=== PATIENT | male | born 1940 | race Caucasian/White ===

== ENCOUNTER 2016-10-14 01:18 | Inpatient (IN) | payer OTHER, MEDICARE ==
[2016-10-14] VITALS (8 sets, daily range): BP systolic 131–174; BP diastolic 64–83; PULSE 62–79; TEMP 36.5–36.8; O2SAT 93–96; Ht 182.9 cm; Wt 110.5 kg
[~2016-10-14] VITALS: Ht 182.9 cm; Wt 110.5 kg
[2016-10-14] MEDS ORDERED: ONDANSETRON INJ 2 MG/ML 2 ML VIAL IV STA (01:40)
[2016-10-14] MEDS ORDERED: FENTANYL CITRATE INJ 50 MCG/1 ML 2 ML VIAL IV STA (01:40)
[2016-10-14] MEDS ORDERED: SODIUM CHLORIDE 0.9% 1000ML 1,000 ML IV STA (01:40)
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
[2016-10-14] MEDS ORDERED: LANS30CA12 PO (01:56)
[2016-10-14] MEDS ORDERED: ASPI-428 PO (01:57)
[2016-10-14] MEDS ORDERED: NIAC1TAB59 PO (01:59)
[2016-10-14] MEDS ORDERED: AMT50 PO (01:59)
[2016-10-14] MEDS ORDERED: RANI150T3 PO (02:00)
[2016-10-14] MEDS ORDERED: ROSU5TAB PO (02:01)
[2016-10-14] MEDS ORDERED: DILT240C57 PO (02:02)
[2016-10-14 02:03] LABS: BASO % 0.3 %; BASO ABS # 0.02 K/uL (0-0.2); COMPLETE YES; EOS % 1.9 %; HEMATOCRIT 49.8 % (42-52); IG% 0.3 %; LYMPH ABS # 2.27 K/uL (1.2-3.4); MEAN CORPUSCULAR HEMOGLOBIN 31.4 pg (25-34); MEAN CORPUSCULAR HGB CONC 36.5 g/dl (32-36); MEAN PLATELET VOLUME 10.8 fL (7.4-10.4); MONO % 5.6 %; NEUT % 62.9 %; PLATELET COUNT 156 K/uL (130-400); RED BLOOD COUNT 5.79 M/uL (4.7-6.1); WHITE BLOOD COUNT 7.84 K/uL (4.8-10.8)
[2016-10-14] MEDS ORDERED: NTRGSL/4 UT (02:03)
[2016-10-14] MEDS ORDERED: AZIT500T26 PO (02:05)
[2016-10-14] MEDS ORDERED: HYDROmorphone INJ 1 MG/ML SYR IV STA (02:06)
[2016-10-14] MEDS ORDERED: LISI-729 PO ×2 (02:06→02:07)
[2016-10-14] MEDS ORDERED: LABETALOL HCL IV 5 MG/ML 20ML IV STA ×2 (02:06→02:20)
[2016-10-14 02:20] LABS: PARTIAL THROMBOPLASTIN RATIO 1.1; PROTHROMBIN TIME (PATIENT) 10.8 SECONDS (9.0-12.0)
[2016-10-14 02:23] LABS: BLOOD UREA NITROGEN 16 mg/dl (7-18); BUN/CREATININE RATIO 14.6 (10-20); CALCIUM 9.5 mg/dl (8.5-10.1); CARBON DIOXIDE 28 mmol/L (21-32); CHLORIDE 106 mmol/L (98-107); GLUCOSE 145 mg/dl (70-99); POTASSIUM 3.6 mmol/L (3.5-5.1); SODIUM 141 mmol/L (136-145)
[2016-10-14 02:46] LABS: ALKALINE PHOSPHATASE 118 U/L (45-117); ALT/SGPT 29 U/L (12-78); AST/SGOT 19 U/L (15-37)
[2016-10-14] MEDS ORDERED: HydrALAZINE HCL 20 MG/ML VIAL IV. STA (02:54)
[2016-10-14] MEDS ORDERED: HydrALAZINE HCL 20 MG/ML VIAL ONE (02:55)
[2016-10-14] MEDS ORDERED: ZOLPIDEM TARTRATE 5 MG TAB PO PRN (03:00)
[2016-10-14] MEDS ORDERED: ACETAMINOPHEN 325 MG TAB PO PRN (03:00)
[2016-10-14] MEDS ORDERED: KETOROLAC TROMETHAMINE 30 MG/ML VIAL IV STA (03:01)
[2016-10-14] MEDS ORDERED: KETOROLAC TROMETHAMINE 15 MG/ML VIAL IV. PRN (03:15)
[2016-10-14 03:27] LABS: LYME DISEASE AB IGG NEG (NEG); LYME DISEASE AB IGM NEG (NEG)
[2016-10-14] MEDS: ONDANSETRON INJ 2 MG/ML 2 ML VIAL IV PRN ×2 (03:28→08:07)
[2016-10-14] MEDS ORDERED: PATIENT'S HEIGHT AND/OR WEIGHT NEEDED SCH (04:00)
[2016-10-14] MEDS: LEVOFLOXACIN / D5W 500 MG in PREMIXED IN D5W 100 ML IV SCH (05:00)
--- NOTE | 2016-10-14 05:32 | History and Physical ---
History & Physical Date & Time of Service: October 14, 2016 at 05:18 Chief Complaint: Hypertensive Urgency, Intractable Headache Primary Care Physician: Fidelia Chapa D.O. History of Present Illness Source: patient, family The patient is a 75-year-old male who presents to the emergency department with a severe left frontal area headache that began about 2 hours prior to arrival. He reports that he's had a chronic low level pain there for the past several weeks, which suddenly worsened considerably this afternoon. His nose has also been running today, and he has a anabell sensation in his eyes. He also reports dizziness, nausea, vomiting, bilateral lower extremity weakness, numbness and tingling. His family thought that he was a bit confused today as well. Past Medical/Surgical History Medical Problems: (1) A-fib Status: Chronic Family History Patient reports no known family medical history. Social History Smoking Status: Former Smoker Smokeless Tobacco Use: No Alcohol Use: none Drug Use: none Marital Status: Housing status: lives with family Occupational Status: retired Multi-Drug Resistant Organisms History of MDRO: No Allergies Coded Allergies: Amoxicillin (Verified Allergy, Intermediate, HIVES, 10/14/16) Cortisone (Verified Allergy, Intermediate, SKIN IRRITATION, 10/14/16) Iodine (Verified Allergy, Intermediate, HIVES, 10/14/16) Lorazepam (Verified Allergy, Mild, MAKES HIM GOOFY, 10/14/16) Uncoded Allergies: BEE STINGS (Allergy, Intermediate, HIVES, 07/10/12) PENICILLIN (Allergy, Intermediate, HIVES, 07/10/12) Home Medications Scheduled Amitriptyline Hcl (Elavil), 100 MG PO HS Aspirin (Ecotrin Low Strength), 81 MG PO DAILY Diltiazem Hcl Coated Beads (Cardizem Cd), 120 MG PO HS Lansoprazole (Prevacid), 30 MG PO DAILY Lisinopril (Zestril), 2.5 MG PO DAILY Niacin Ext Rel (Niaspan Ext Rel), 500 MG PO HS Ranitidine Hcl (Zantac), 150 MG PO HS Rosuvastatin Calcium (Crestor), 10 MG PO HS Scheduled PRN Azithromycin (Zithromax), 500 MG PO for 1 hour prior to dental work Nitroglycerin (Nitrostat), 0.4 MG UT PRN PRN for chest pain Review of Systems Constitutional: No chills, No fatigue, No fever, No problem reported, No sweats , No weakness, No weight loss Eyes: No diplopia, No discharge, No eye pain, No problem reported, No redness, No worsening of vision ENT: No dental problems, No hearing loss, No nasal symptoms, No problem reported, No sore throat, No tinnitus, No trouble swallowing, No unusual epistaxis Respiratory: No cough, No dyspnea at rest, No dyspnea on exertion, No hemoptysis, No problem reported, No shortness of breath, No sputum, No wheezing Cardiovascular: No PND, No chest pain, No claudication, No edema, No orthopnea , No palpitations, No problem reported Abdomen: + nausea, + vomiting, No GI bleeding, No constipation, No diarrhea, No pain Musculoskeletal: No calf pain, No joint pain, No muscle pain, No problem reported, No swelling Genitourinary - Male: No dysuria, No hematuria, No impotence, No lesions, No penile discharge, No problem reported, No urinary frequency, No urinary hesitancy, No urinary incontinence, No urinary retention, No urinary urgency Neurologic: + balance problems, + numbness/tingling, + vertigo, + weakness (in bilateral lower extremities which has been present for a while but mildly worse today.), No memory loss, No paralysis Psychiatric: No anhedonism, No anxiety, No depression symptoms, No insomnia, No problem reported, No substance abuse Endocrine: No excessive thirst, No excessive urination, No fatigue, No problem reported Hematologic / Lymphatic: No abnormal bleeding/bruising, No clotting problems, No night sweats, No problem reported, No swollen lymph nodes Integumentary: No bleeding, No color change, No itch, No new/changing skin lesions, No problem reported, No rash Allergic / Immunologic: No environmental allergies, No food allergies, No frequent infections, No hives, No pet sensitivities, No poor healing, No problem reported, No prolonged convalescence, No seasonal allergies Physical Exam Vital Signs Date Time Temp Pulse Resp B/P Pulse Ox O2 Delivery O2 Flow Rate FiO2 10/14/16 04:42 74 136/72 10/14/16 04:28 36.5 79 18 174/83 Room Air 2.0 10/14/16 03:40 186/88 10/14/16 03:35 78 17 94 Nasal Cannula 2.0 10/14/16 03:30 173/81 10/14/16 03:20 169/86 10/14/16 03:18 76 20 96 10/14/16 03:10 179/78 10/14/16 03:00 71 18 182/93 96 Nasal Cannula 2.0 10/14/16 03:00 182/93 10/14/16 02:55 194/105 10/14/16 02:50 198/86 10/14/16 02:48 67 21 96 10/14/16 02:45 190/86 10/14/16 02:40 153/124 10/14/16 02:35 169/103 10/14/16 02:30 171/87 10/14/16 02:26 61 20 165/88 91 Room Air 10/14/16 02:25 165/88 10/14/16 02:20 172/91 10/14/16 02:18 67 14 92 10/14/16 02:17 187/87 10/14/16 01:49 185/104 10/14/16 01:49 72 20 185/104 99 Room Air 10/14/16 01:35 36.4 84 20 197/94 98 Room Air 10/14/16 01:35 98 Room Air General Appearance: WD/WN, + moderate distress (secondary to left frontal headache pain episodically.) Head: normocephalic, atraumatic Eyes: normal inspection, PERRL, EOMI ENT: normal ENT inspection, hearing grossly normal, pharynx normal, + nasal congestion, + nasal drainage Neck: no adenopathy, thyroid normal, no JVD, no carotid bruits, trachea midline , + pertinent finding (his neck is fused, and therefore does not have lateral movement in either direction, but does have forward and backward movement.) Respiratory/Chest: chest non-tender, lungs clear, normal breath sounds, no respiratory distress, no accessory muscle use Cardiovascular: regular rate, rhythm, no edema, no gallop, no JVD, no murmur, normal peripheral pulses Abdomen/GI: normal bowel sounds, non tender, soft, no organomegaly, no pulsatile mass Back: normal inspection, no CVA tenderness, no muscle spasm, normal range of motion Extremities/Musculoskelatal: normal inspection, no calf tenderness, normal capillary refill, no pedal edema, normal range of motion, non-tender 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, no motor/sensory deficits, alert, normal mood/affect, normal reflexes, oriented x 3 Skin: normal color, warm/dry, no rash Lymphatic: no adenopathy Diagnostics Laboratory Results Results Past 24 Hours Test 10/14/16 00:58 10/14/16 01:49 Range/Units White Blood Count 7.84 4.8-10.8 K/uL Red Blood Count 5.79 4.7-6.1 M/uL Hemoglobin 18.2 14.0-18.0 g/dL Hematocrit 49.8 42-52 % Mean Corpuscular Volume 86.0 80-100 fL Mean Corpuscular Hemoglobin 31.4 25-34 pg Mean Corpuscular Hemoglobin Concent 36.5 32-36 g/dl Platelet Count 156 130-400 K/uL Mean Platelet Volume 10.8 7.4-10.4 fL Neutrophils (%) (Auto) 62.9 % Lymphocytes (%) (Auto) 29.0 % Monocytes (%) (Auto) 5.6 % Eosinophils (%) (Auto) 1.9 % Basophils (%) (Auto) 0.3 % Neutrophils # (Auto) 4.94 1.4-6.5 K/uL Lymphocytes # (Auto) 2.27 1.2-3.4 K/uL Monocytes # (Auto) 0.44 0.11-0.59 K/uL Eosinophils # (Auto) 0.15 0-0.5 K/uL Basophils # (Auto) 0.02 0-0.2 K/uL RDW Standard Deviation 38.4 36.4-46.3 fL RDW Coefficient of Variation 12.3 11.5-14.5 % Immature Granulocyte % (Auto) 0.3 % Immature Granulocyte # (Auto) 0.02 0.00-0.02 K/uL Prothrombin Time 10.8 9.0-12.0 SECONDS Prothromb Time International Ratio 1.0 0.9-1.1 Activated Partial Thromboplast Time 28.2 21.0-31.0 SECONDS Partial Thromboplastin Ratio 1.1 Sodium Level 141 136-145 mmol/L Potassium Level 3.6 3.5-5.1 mmol/L Chloride Level 106 98-107 mmol/L Carbon Dioxide Level 28 21-32 mmol/L Anion Gap 7.0 3-11 mmol/L Blood Urea Nitrogen 16 7-18 mg/dl Creatinine 1.10 0.60-1.40 mg/dl Estimated GFR () 74.7 Estimated GFR (Non- 64.4 BUN/Creatinine Ratio 14.6 10-20 Random Glucose 145 70-99 mg/dl Calcium Level 9.5 8.5-10.1 mg/dl Total Bilirubin 0.8 0.2-1 mg/dl Direct Bilirubin 0.2 0-0.2 mg/dl Aspartate Amino Transf (AST/SGOT) 19 15-37 U/L Alanine Aminotransferase (ALT/SGPT) 29 12-78 U/L Alkaline Phosphatase 118 45-117 U/L Troponin I < 0.015 0-0.045 ng/ml Total Protein 8.2 6.4-8.2 gm/dl Albumin 4.6 3.4-5.0 gm/dl Lyme Disease IgG Antibody NEG NEG Lyme Disease IgM Antibody NEG NEG other (CAT scan of the head shows significant paranasal sinus disease, and chronic small vessel disease.) Impression Assessment and Plan Intractable left frontal headache/nausea, vomiting and bilateral lower extremity weakness--the patient be admitted to telemetry unit for cardiac monitoring and neurologic checks. CT scan of head was negative for acute vascular disease, but did show significant sinus disease. We'll order an MRI of the brain to further assess for any neurologic process. He'll be started on Levaquin 500 mg IV daily, Toradol 30 mg IV every 6 hours when necessary, and we' ll hold on steroids due to sensitivity to cortisone. He does have chronic low back pain, sees him to have a chronic lower extremity weakness, numbness and tingling, which is likely aggravated by his other processes. We'll also have when necessary morphine available IV, but we'll be careful going to a stronger narcotics as he did have some respiratory depression in the emergency department. Hypertensive urgency--for now we will allow permissive hypertension for systolic blood pressure around 170, until we're convinced that no acute neurologic process taking place of the brain. Labetalol and hydralazine IV will be available to use with appropriate parameters. Level of Care Telemetry Advanced Directives Existing Advance Directive: No Existing Living Will: No Existing Power of Unit Support Representative: No Resuscitation Status FULL RESUSCITATION VTE Prophylaxis VTE Risk Assessment Done? Y/N: Yes Risk Level: Moderate Given or contraindicated: SCD's
[2016-10-14] MEDS ORDERED: HydrALAZINE HCL 20 MG/ML VIAL IV. PRN (05:45)
[2016-10-14] MEDS ORDERED: METOPROLOL TARTRATE 1 MG/ML VIAL IV PRN (05:45)
--- NOTE | 2016-10-14 06:39 | DIAGNOSTIC IMAGING REPORT ---
CHEST ONE VIEW PORTABLE CLINICAL HISTORY: AMS, hypertension COMPARISON STUDY: No previous studies for comparison. FINDINGS: The heart is borderline enlarged. There is mild elevation right hemidiaphragm. Left hemidiaphragm is ill-defined. A small left pleural effusion and/or left basilar atelectasis/consolidation cannot be excluded. There is no failure.[ IMPRESSION: 1. Mild elevation right hemidiaphragm 2. Ill-definition of the left hemidiaphragm. A small left pleural effusion and/or left basilar atelectasis/consolidation cannot be excluded Electronically signed by: Kentrell Gr M.D. 10/14/2016 6:37 AM Dictated Date/Time: 10/14/2016 6:36 AM
[2016-10-14] MEDS ORDERED: NURSING VERBAL MED ORDER ONE (06:45)
--- NOTE | 2016-10-14 06:50 | DIAGNOSTIC IMAGING REPORT ---
CT OF THE HEAD WITHOUT CONTRAST CLINICAL HISTORY: Sudden onset severe headache. COMPARISON STUDY: No previous studies for comparison. CT DOSE: 614.27 mGy.cm TECHNIQUE: Helical axial images of the head were obtained without IV contrast. Automated exposure control was utilized for the study. FINDINGS: No acute intracranial hemorrhage, midline shift or mass effect is present. Ventricular system is normal for age. Basilar cisterns are patent. There are no extra-axial collections. Connell-white differentiation is maintained. There are no findings to suggest acute dural sinus thrombosis or acute territorial infarct. There is moderate mucosal thickening of the ethmoid sinuses. Mastoid air cells are clear. Cervical spine fusion is partially imaged. IMPRESSION: 1. No acute intracranial findings. 2. Moderate ethmoid sinus mucosal thickening. Electronically signed by: Emeka Chilel M.D. 10/14/2016 6:49 AM Dictated Date/Time: 10/14/2016 6:45 AM
[2016-10-14] MEDS: LISINOPRIL 2.5 MG TAB PO SCH (08:12)
[2016-10-14] MEDS: PANTOprazole SOD 40 MG TAB PO SCH (08:12)
[2016-10-14] MEDS ORDERED: ASPIRIN 81 MG ECTAB PO SCH ×2 (09:00→17:40)
[2016-10-14] MEDS ORDERED: HYDROmorphone INJ 1 MG/ML SYR IV PRN ×2 (10:45)
[2016-10-14] MEDS ORDERED: OXYCODONE HCL IR 5 MG TAB (IMMEDIATE RELEASE) PO PRN (10:45)
[2016-10-14] MEDS ORDERED: KETOROLAC TROMETHAMINE 15 MG/ML VIAL IV PRN (10:45)
[2016-10-14] MEDS ORDERED: PANTOprazole INJ 40 MG in SYRINGE 0 ML IV SCH (11:00)
[2016-10-14] MEDS ORDERED: METHYLPREDNISOLONE IV 40 MG in SYRINGE 0 ML IV ONE (11:00)
[2016-10-14] MEDS ORDERED: MAGNESIUM SULFATE 1GM / D5W 1 GM in PREMIXED IN D5W 100 ML IV ONE (11:00)
--- NOTE | 2016-10-14 12:36 | Progress Note ---
Subjective Date of Service: October 14, 2016. Subjective pt has persistent moderate left retro orbital headache, a "anabell' feeling in eye , without conjunctival irritation, temporal artery pain, of jaw claudication no amarousis, and no further rhinorhea. initial ct negative except for sinusitis Problem List Medical Problems: (1) Hypertensive emergency Status: Acute Review of Systems Constitutional: No chills, No fever, No weakness Eyes: + eye pain, No diplopia, No discharge, No redness, No worsening of vision ENT: No hearing loss, No unusual epistaxis Respiratory: No cough, No sputum Cardiac: No chest pain, No orthopnea Abdomen: No nausea, No pain Male : No dysuria, No urinary frequency Neurologic: No memory loss, No paralysis Psychiatric: No anhedonism, No depression symptoms Objective Vital Signs Date Time Temp Pulse Resp B/P Pulse Ox O2 Delivery O2 Flow Rate FiO2 10/14/16 07:38 36.5 74 16 131/73 96 Room Air 10/14/16 04:42 74 136/72 10/14/16 04:28 36.5 79 18 174/83 Room Air 2.0 10/14/16 03:40 186/88 10/14/16 03:35 78 17 94 Nasal Cannula 2.0 10/14/16 03:30 173/81 10/14/16 03:20 169/86 10/14/16 03:18 76 20 96 10/14/16 03:10 179/78 10/14/16 03:00 71 18 182/93 96 Nasal Cannula 2.0 10/14/16 03:00 182/93 10/14/16 02:55 194/105 10/14/16 02:50 198/86 10/14/16 02:48 67 21 96 10/14/16 02:45 190/86 10/14/16 02:40 153/124 10/14/16 02:35 169/103 10/14/16 02:30 171/87 10/14/16 02:26 61 20 165/88 91 Room Air 10/14/16 02:25 165/88 10/14/16 02:20 172/91 10/14/16 02:18 67 14 92 10/14/16 02:17 187/87 10/14/16 01:49 185/104 10/14/16 01:49 72 20 185/104 99 Room Air 10/14/16 01:35 36.4 84 20 197/94 98 Room Air 10/14/16 01:35 98 Room Air Physical Exam General Appearance: WD/WN, + moderate distress Eyes: PERRL, EOMI ENT: hearing grossly normal, TMs normal, pharynx normal Neck: supple, no JVD Respiratory/Chest: chest non-tender, lungs clear, normal breath sounds Cardiovascular: regular rate, rhythm, no murmur Abdomen: normal bowel sounds, non tender, soft 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 as tested, alert, oriented x 3 Laboratory Results Last 24 Hours Test 10/14/16 00:58 10/14/16 01:49 White Blood Count 7.84 K/uL Red Blood Count 5.79 M/uL Hemoglobin 18.2 g/dL Hematocrit 49.8 % Mean Corpuscular Volume 86.0 fL Mean Corpuscular Hemoglobin 31.4 pg Mean Corpuscular Hemoglobin Concent 36.5 g/dl Platelet Count 156 K/uL Mean Platelet Volume 10.8 fL Neutrophils (%) (Auto) 62.9 % Lymphocytes (%) (Auto) 29.0 % Monocytes (%) (Auto) 5.6 % Eosinophils (%) (Auto) 1.9 % Basophils (%) (Auto) 0.3 % Neutrophils # (Auto) 4.94 K/uL Lymphocytes # (Auto) 2.27 K/uL Monocytes # (Auto) 0.44 K/uL Eosinophils # (Auto) 0.15 K/uL Basophils # (Auto) 0.02 K/uL RDW Standard Deviation 38.4 fL RDW Coefficient of Variation 12.3 % Immature Granulocyte % (Auto) 0.3 % Immature Granulocyte # (Auto) 0.02 K/uL Prothrombin Time 10.8 SECONDS Prothromb Time International Ratio 1.0 Activated Partial Thromboplast Time 28.2 SECONDS Partial Thromboplastin Ratio 1.1 Sodium Level 141 mmol/L Potassium Level 3.6 mmol/L Chloride Level 106 mmol/L Carbon Dioxide Level 28 mmol/L Anion Gap 7.0 mmol/L Blood Urea Nitrogen 16 mg/dl Creatinine 1.10 mg/dl Estimated GFR () 74.7 Estimated GFR (Non- 64.4 BUN/Creatinine Ratio 14.6 Random Glucose 145 mg/dl Calcium Level 9.5 mg/dl Total Bilirubin 0.8 mg/dl Direct Bilirubin 0.2 mg/dl Aspartate Amino Transf (AST/SGOT) 19 U/L Alanine Aminotransferase (ALT/SGPT) 29 U/L Alkaline Phosphatase 118 U/L Troponin I < 0.015 ng/ml Total Protein 8.2 gm/dl Albumin 4.6 gm/dl Lyme Disease IgG Antibody NEG Lyme Disease IgM Antibody NEG Assessment and Plan Intractable left frontal headache/nausea, vomiting and bilateral lower extremity weakness-- Headache, CT scan of head was negative for acute vascular disease, sinus disease present. Pending MRI of the brain Toradol and morphine, does have some baseline LE issues suspected from back pain. will add steroids, magnesium and consider neurology eval if not improved Sinusitis, Levaquin 500 mg IV daily, Hypertensive urgency-- allow permissive hypertension for systolic blood pressure around 170 Labetalol and hydralazine IV will be available to use with appropriate parameters.
[2016-10-14] MEDS ORDERED: GADAVIST IV PRN (16:00)
--- NOTE | 2016-10-14 16:02 | DIAGNOSTIC IMAGING REPORT ---
MRI OF THE BRAIN WITHOUT AND WITH IV CONTRAST CLINICAL HISTORY: severe headache COMPARISON STUDY: Noncontrast head CT dated 10/14/2016 TECHNIQUE: MRI of the brain was performed from the vertex to the skull base utilizing various T1 and T2 weighted sequences. Following the IV administration of 10.5 mL of Gadavist contrast, additional enhanced images were obtained. FINDINGS: Sagittal T1, axial diffusion, proton density and T2 weighted axial, coronal FLAIR, and pre and post axial T1-weighted images were acquired. These were supplemented with post gadolinium coronal T1 weighted images. No intra or extra-axial mass lesions are visualized. Axial diffusion-weighted images reveal no evidence of acute or subacute infarction. There is no evidence of ventricular dilatation. Proton density T2-weighted and FLAIR images reveal minor scattered foci of increased T2 signal within the white matter, likely on a small vessel basis. There are no abnormal flow voids. There is no evidence of pathologic enhancement. There is artifact emanating from presumed postsurgical changes within the cervical spine. There is ethmoid sinus mucosal thickening. IMPRESSION: 1. No acute intracranial findings 2. No evidence of intracranial mass 3. No evidence of acute or subacute infarction 4. Minor foci of increased T2 and FLAIR signal within the white matter, likely on a small vessel basis, and not unexpected for age. Electronically signed by: Kentrell Gr M.D. 10/14/2016 4:01 PM Dictated Date/Time: 10/14/2016 3:58 PM
[2016-10-14] MEDS ORDERED: RANITIDINE HCL 150 MG TAB PO SCH (21:00)
[2016-10-14] MEDS ORDERED: ROSUVASTATIN CALCIUM 10 MG TAB PO SCH (21:00)
[2016-10-14] MEDS ORDERED: NIASPAN 500 MG TABCR PO SCH (21:00)
[2016-10-14] MEDS ORDERED: DILTIAZEM HCL 120 MG CAPCR PO SCH (21:00)
[2016-10-14] MEDS ORDERED: AMITRIPTYLINE HCL 50 MG TAB PO SCH (21:00)
[2016-10-14 22:55] LABS: URINE APPEARANCE CLEAR (CLEAR); URINE BILIRUBIN NEG (NEG); URINE COLOR YELLOW; URINE EPITHELIAL CELL AUTO 0-5 /lpf (0-5); URINE NITRITE NEG (NEG); UROBILINOGEN NEG (NEG); ZZUR CULT IF INDIC CLEAN CATCH NO
[2016-10-14 22:56] LABS: MANUAL MICROSCOPIC REQUIRED? NO; REVIEW REQ? NO
[2016-10-15 04:26] VITALS: BP 145/71; PULSE 67; TEMP 36.8; O2SAT 93
[2016-10-15] MEDS: LEVOFLOXACIN / D5W 500 MG in PREMIXED IN D5W 100 ML IV SCH (05:00)
[2016-10-15 05:46] LABS: BASO % 0.1 %; BASO ABS # 0.01 K/uL (0-0.2); COMPLETE YES; HEMATOCRIT 45.1 % (42-52); IG% 0.2 %; LYMPH % 7.8 %; LYMPH ABS # 1.07 K/uL (1.2-3.4); MEAN CELL VOLUME 88.8 fL (80-100); MEAN CORPUSCULAR HEMOGLOBIN 30.1 pg (25-34); MEAN CORPUSCULAR HGB CONC 33.9 g/dl (32-36); MEAN PLATELET VOLUME 10.4 fL (7.4-10.4); MONO % 3.9 %; PLATELET COUNT 159 K/uL (130-400); RED BLOOD COUNT 5.08 M/uL (4.7-6.1)
[2016-10-15 06:30] LABS: BUN/CREATININE RATIO 17.1 (10-20); CALCIUM 8.3 mg/dl (8.5-10.1); CREATININE 1.1 mg/dl (0.60-1.40); MAGNESIUM 2.3 mg/dl (1.8-2.4); POTASSIUM 4.5 mmol/L (3.5-5.1)
[2016-10-15] MEDS: PANTOprazole SOD 40 MG TAB PO SCH (07:59)
[2016-10-15] MEDS: LISINOPRIL 2.5 MG TAB PO SCH (07:59)
[2016-10-15 08:42] VITALS: BP 144/69; PULSE 69; TEMP 36.8; O2SAT 95
[2016-10-15] MEDS ORDERED: CLIN300C2 PO (10:11)
[2016-10-15] MEDS ORDERED: RXC5 PO (10:11)
--- NOTE | 2016-10-15 10:12 | Discharge Instructions ---
Discharge Instructions Date of Service October 15, 2016. Admission Reason for Admission: Hypertensive Urgency, Intractable Headache Discharge Discharge Diagnosis / Problem: initractable headache, sinusitis Discharge Goals Goal(s): Diagnostic testing, Therapeutic intervention Activity Recommendations Activity Limitations: resume your previous activity . Current Hospital Diet Patient's current hospital diet: AHA Diet (Heart Healthy), Diabetes Type 2 Diet Discharge Diet Recommended Diet: Regular Diet Pending Studies Studies pending at discharge: no Medical Emergencies . Who to Call and When: Medical Emergencies: If at any time you feel your situation is an emergency, please call 911 immediately. . Non-Emergent Contact Non-Emergency issues call your: Primary Care Provider Call Non-Emergent contact if: temperature is above 101, your pain is unusual for you . . "Provider Documentation" section prepared by Nelson Hart. . VTE Core Measure Inpt VTE Proph given/why not?: SCD's
[2016-10-15 13:44] VITALS: BP 144/69; PULSE 69; TEMP 36.8; O2SAT 95
--- NOTE | 2016-10-15 14:13 | Discharge Summary ---
Discharge Summary Date of Service October 15, 2016. Discharge Summary Admission Date: October 14, 2016 at 03:01 Discharge Date: October 15, 2016 Discharge Disposition: Home Principal Diagnosis: intractable headache, sinusitis Medication Reconciliation New Medications: Clindamycin Hcl (Cleocin) 300 Mg Cap 1 CAP PO TID, #24 CAP Oxycodone HCl (Oxycodone HCl) 5 Mg Tab 10 MG PO Q6 PRN for Pain, #20 TAB Continued Medications: Amitriptyline Hcl (Elavil) 50 Mg Tab 100 MG PO HS, TAB Aspirin (Ecotrin Low Strength) 81 Mg Tab 81 MG PO DAILY for 30 Days, #30 TAB 3 Refills take 15 min. prior taking niaspan Azithromycin (Zithromax) 500 Mg Tab 500 MG PO PRN for 1 hour prior to dental work, #4 TAB Diltiazem Hcl Coated Beads (Cardizem Cd) 240 Mg Cap 120 MG PO HS, CAP Lansoprazole (Prevacid) 30 Mg Capcr 30 MG PO DAILY, CAP Lisinopril (Zestril) 5 Mg Tab 2.5 MG PO DAILY, TAB Niacin Ext Rel (Niaspan Ext Rel) 500 Mg Tabcr 500 MG PO HS, TAB Nitroglycerin (Nitrostat) 0.4 Mg Tab 0.4 MG UT PRN PRN for chest pain, BTL Ranitidine Hcl (Zantac) 150 Mg Tab 150 MG PO HS, TAB Rosuvastatin Calcium (Crestor) 5 Mg Tab 10 MG PO HS, TAB Discharge Exam Review of Systems: Constitutional: No chills, No fever Respiratory: No cough, No sputum Cardiovascular: No chest pain, No orthopnea Abdomen: No nausea, No pain, No vomiting Musculoskeletal: No joint pain, No muscle pain Physical Exam: General Appearance: WD/WN, no apparent distress Eyes: PERRL, EOMI ENT: hearing grossly normal, pharynx normal Neck: supple, no adenopathy, thyroid normal, no JVD Respiratory/Chest: chest non-tender, lungs clear, normal breath sounds Cardiovascular: regular rate, rhythm, no murmur Abdomen / GI: normal bowel sounds, non tender, soft Hospital Course Intractable left frontal headache improved after treatment of sinus headache Headache, CT scan of head was negative for acute vascular disease, sinus disease present. MRI of the brain without significant changes will have home on clindamycin due to drug allergies and prolongued Qtc that maybe from levaquin Sinusitis, cleocin, oxycodone Hypertensive urgency-- resolved with treatment of his headache, will encourage follow up for bp monitoring with family doctor Total Time Spent: Greater than 30 minutes This includes examination of the patient, discharge planning, medication reconciliation, and communication with other providers. Discharge Instructions Please refer to the electronic Patient Visit Report (Discharge Instructions) for additional information.
[2016-10-15] MEDS ORDERED: ASPIRIN 81 MG ECTAB PO SCH (21:00)
== END 2016-10-15 13:47 | disposition home or self-care (01) | DRG 305 ==
LOC: ENRESERVTM → ENRESERVDT → EDBD 01:18 → C.EDA 01:21 → C.2T 03:01
PROVIDERS: ADMIT Hospitalist; ATTEND Internal Medicine
DX: I16.0 Hypertensive urgency (principal); I10 Essential (primary) hypertension; J32.9 Chronic sinusitis, unspecified; R51 Headache; R11.2 Nausea with vomiting, unspecified; R53.1 Weakness; I48.91 Unspecified atrial fibrillation; Z98.1 Arthrodesis status; Z79.82 Long term (current) use of aspirin; Z79.899 Other long term (current) drug therapy

== ENCOUNTER 2017-08-14 11:02 | Emergency (ER) | payer OTHER, MEDICARE ==
[~2017-08-14] VITALS: Ht 188 cm; Wt 111.3 kg
[~2017-08-14 11:02] MED LIST: AMT50 PO; ASPI-428 PO; AZIT500T26 PO; DILT240C57 PO; LANS30CA12 PO; LISI-729 PO; NIAC1TAB59 PO; NTRGSL/4 UT; RANI150T3 PO; ROSU5TAB PO; RXC5 PO
[2017-08-14 11:12] VITALS: TEMP 36.5; Ht 188 cm; Wt 111.3 kg
[2017-08-14] MEDS ORDERED: OXYCODONE HCL IR 5 MG TAB (IMMEDIATE RELEASE) PO STA (11:50)
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
[2017-08-14] MEDS ORDERED: ONDANSETRON 4MG OD TAB PO ONE (12:00)
--- NOTE | 2017-08-14 12:26 | DIAGNOSTIC IMAGING REPORT ---
CT SCAN OF THE BRAIN WITHOUT IV CONTRAST CLINICAL HISTORY: Fall. COMPARISON STUDY: CT of the brain dated 10/14/2016. TECHNIQUE: Unenhanced axial CT scan of the brain is performed from the vertex to the skull base. A dose lowering technique was utilized adhering to the principles of ALARA. FINDINGS: Brain parenchyma: There are age-related involutional changes noting mild subcortical and periventricular microangiopathic change. There is no hemorrhage, mass effect, or evidence of acute territorial ischemia by CT criteria. Connell-white matter is preserved. No extra-axial fluid collection is seen. Ventricles, sulci, cisterns: Prominent secondary to involutional change. Intracranial vasculature: There is atherosclerotic calcification of the cavernous carotid and vertebral arteries. Calvarium: The skeletal structures are osteopenic. No depressed calvarial fracture is seen. Sinuses and mastoids: Moderate mucosal thickening is seen within the ethmoid sinuses. Trace fluid is noted in the left maxillary antrum. The mastoid air cells are well pneumatized. Orbits: The bony orbits are grossly intact. There are bilateral ocular lens implants. IMPRESSION: There is no hemorrhage, mass effect, or evidence of acute territorial ischemia by CT criteria. Electronically signed by: Billy Israel M.D. 08/14/2017 12:24 PM Dictated Date/Time: 08/14/2017 12:22 PM
--- NOTE | 2017-08-14 12:32 | DIAGNOSTIC IMAGING REPORT ---
CT SCAN OF THE CERVICAL SPINE CLINICAL HISTORY: Fall. COMPARISON STUDY: No priors. TECHNIQUE: CT scan of the cervical spine is performed from the skull base to the upper thoracic spine. Images are reviewed in the axial, sagittal, and coronal planes. IV contrast was not administered for this examination. A dose lowering technique was utilized adhering to the principles of ALARA. CT DOSE: 1335.91 mGy.cm FINDINGS: Skeletal structures: The skeletal structures are osteopenic. There is no evidence of fracture or subluxation involving the cervical spine. Vertebral body height is preserved. There is mild anterolisthesis at C3-C4 and C7-T1. Alignment is otherwise maintained. Anterior osteophytes are seen throughout. Postoperative change is identified at C1 and C2. Interpedicular screws are present in C2 and transfix the lateral masses of C1. Cerclage wires few the posterior elements of C1 and C2. The odontoid process and lateral masses are intact. The atlantoaxial articulation is preserved noting advanced productive degenerative change. The spinous processes appear intact. There is moderate to advanced multilevel cervical spondylosis. Uncovertebral and facet arthropathy contributes to neural foraminal stenosis throughout the cervical spine. There is a mild and age indeterminant superior endplate compression deformity of T2. There is also a healed right first rib fracture. Intervertebral discs: There is moderate to severe disc space narrowing seen at C4-C5, C5-C6, C6-C7, and C7-T1. Central canal: Posterior disc osteophyte complexes from C4-C5 through C7-T1 likely contribute to multilevel acquired compromise of the central canal. Soft tissues: The prevertebral and paraspinous soft tissues are within normal limits. Atherosclerotic calcification is noted in the carotid bulbs. Calvarium: The visualized calvarium at the skull base appears intact. Brain parenchyma: Partially visualized brain parenchyma the skull base is within normal limits. Mastoids: The mastoid air cells are well pneumatized. Lung apices: Clear as visualized. IMPRESSION: 1. There is no evidence of fracture or subluxation involving the cervical spine. 2. Osteopenia with advanced spondylotic as well as postoperative changes as above. 3. There is a minimal and age indeterminant superior endplate compression deformity of T2. A healed right first rib fracture is also identified. Electronically signed by: Billy Israel M.D. 08/14/2017 12:31 PM Dictated Date/Time: 08/14/2017 12:25 PM
--- NOTE | 2017-08-14 12:46 | DIAGNOSTIC IMAGING REPORT ---
TWO VIEW CHEST CLINICAL HISTORY: Fall. FINDINGS: AP and lateral chest radiographs are compared to study dated 10/14/2016. The heart is enlarged and there is atherosclerotic calcification of the thoracic aorta. The pulmonary vasculature is noncongested. Chronic interstitial thickening is similar to previous, as is mild elevation of the right hemidiaphragm. There is minimal bibasilar atelectasis. No airspace consolidation or pleural effusion is identified. There is no pneumothorax. The skeletal structures are osteopenic. The bony thorax appears intact. Degenerative change is seen throughout the thoracic spine. IMPRESSION: Cardiomegaly with no acute cardiopulmonary abnormality. Electronically signed by: Billy Israel M.D. 08/14/2017 12:45 PM Dictated Date/Time: 08/14/2017 12:44 PM
--- NOTE | 2017-08-14 12:47 | DIAGNOSTIC IMAGING REPORT ---
SINGLE VIEW PELVIS; 2 VIEWS RIGHT HIP CLINICAL HISTORY: Fall. FINDINGS: An AP view of the pelvis with AP and frog-leg views of the right hip are obtained. No prior studies are available for comparison at the time of dictation. The skeletal structures are osteopenic. There is no radiographic evidence of fracture involving the hips or bony pelvis. Mild arthritic change and joint space narrowing is seen in both hips. Mild sclerotic change is noted in the sacroiliac joints. The overlying soft tissues are within normal limits. IMPRESSION: Osteopenia with no radiographic evidence of fracture involving the hips or bony pelvis. Electronically signed by: Billy Israel M.D. 08/14/2017 12:46 PM Dictated Date/Time: 08/14/2017 12:45 PM
[2017-08-14] MEDS ORDERED: ACETAMINOPHEN 500 MG TAB PO STA (13:00)
[2017-08-14] MEDS ORDERED: OXYC1TAB3 PO (13:03)
[2017-08-14] MEDS ORDERED: KETOROLAC TROMETHAMINE 60 MG/2 ML VIAL IM STA (13:04)
[2017-08-14 13:10] VITALS: BP 141/113; PULSE 67; O2SAT 95
== END 2017-08-14 13:36 | disposition home or self-care (01) ==
LOC: EDBD 11:02 → C.EDC 11:03
DX: S70.01XA Contusion of right hip, initial encounter (principal); R51 Headache; W00.0XXA Fall on same level due to ice and snow, initial encounter; Y92.89 Other specified places as the place of occurrence of the external cause; I48.91 Unspecified atrial fibrillation; Z79.82 Long term (current) use of aspirin; Z79.899 Other long term (current) drug therapy; Z91.030 Bee allergy status; Z88.1 Allergy status to other antibiotic agents; Z88.0 Allergy status to penicillin; Z88.8 Allergy status to other drugs, medicaments and biological substances; Z91.048 Other nonmedicinal substance allergy status

== ENCOUNTER 2017-09-04 18:44 | Inpatient (IN) | payer OTHER, MEDICARE ==
[~2017-09-04] VITALS: Ht 182.9 cm; Wt 92.3 kg
[~2017-09-04 18:44] MED LIST changes: -NIAC1TAB59 PO; +OXYC1TAB3 PO; -RXC5 PO
[2017-09-04] MEDS ORDERED: IBUPROFEN 200 MG TAB PO STA (19:03)
[2017-09-04] MEDS ORDERED: ONDANSETRON INJ 2 MG/ML 2 ML VIAL IV STA (19:03)
[2017-09-04 19:19] LABS: BASO % 0.1 %; BASO ABS # 0.01 K/uL (0-0.2); EOS % 0.3 %; EOS ABS # 0.02 K/uL (0-0.5); HEMATOCRIT 47.2 % (42-52); HEMOGLOBIN 17.3 g/dL (14.0-18.0); IG# 0.02 K/uL (0.00-0.02); LYMPH % 15.7 %; LYMPH ABS # 1.23 K/uL (1.2-3.4); MEAN CELL VOLUME 85.8 fL (80-100); MEAN CORPUSCULAR HEMOGLOBIN 31.5 pg (25-34); MEAN CORPUSCULAR HGB CONC 36.7 g/dl (32-36); MONO % 8.2 %; MONO ABS # 0.64 K/uL (0.11-0.59); NEUT % 75.4 %; PLATELET COUNT 142 K/uL (130-400); RED CELL DISTRIBUTION WIDTH CV 12.4 % (11.5-14.5); RED CELL DISTRIBUTION WIDTH SD 39.1 fL (36.4-46.3); WHITE BLOOD COUNT 7.82 K/uL (4.8-10.8)
[2017-09-04 19:29] LABS: PTT PATIENT 26.4 SECONDS (21.0-31.0)
--- NOTE | 2017-09-04 19:31 | DIAGNOSTIC IMAGING REPORT ---
CHEST ONE VIEW PORTABLE CLINICAL HISTORY: 76 years-old Male presenting with Sepsis. TECHNIQUE: Portable upright AP view of the chest was obtained. COMPARISON: 08/14/2017. FINDINGS: Atherosclerosis of aortic arch. Cardiac silhouette enlarged. Minimal basilar opacities. No pleural effusion or pneumothorax. Degenerative changes of the thoracic spine. IMPRESSION: 1. Cardiomegaly. 2. Bibasilar atelectasis suspected. Electronically signed by: Milton Aldridge M.D. 09/04/2017 7:29 PM Dictated Date/Time: 09/04/2017 7:28 PM
[2017-09-04 19:38] LABS: ALBUMIN 3.6 gm/dl (3.4-5.0); ALT/SGPT 32 U/L (12-78); BLOOD UREA NITROGEN 16 mg/dl (7-18); CALCIUM 8.6 mg/dl (8.5-10.1); CARBON DIOXIDE 25 mmol/L (21-32); CREATININE 1.27 mg/dl (0.60-1.40); GLUCOSE 155 mg/dl (70-99); POTASSIUM 3.5 mmol/L (3.5-5.1); SODIUM 136 mmol/L (136-145)
[2017-09-04 19:41] LABS: ALKALINE PHOSPHATASE 124 U/L (45-117); AST/SGOT 23 U/L (15-37); TOTAL PROTEIN 7.6 gm/dl (6.4-8.2)
--- NOTE | 2017-09-04 19:54 | DIAGNOSTIC IMAGING REPORT ---
ABD/PELVIS WITHOUT FOR STONE CLINICAL HISTORY: 76 years-old Male presenting with left sided pain and fever. TECHNIQUE: Multidetector CT of the abdomen and pelvis was performed without the use of intravenous contrast. IV contrast: None. A dose lowering technique was used consistent with the principles of ALARA (as low as reasonably achievable). COMPARISON: None. CT DOSE (mGy.cm): The estimated cumulative dose is 1939.69 mGy.cm. FINDINGS: Athletic Events Scorer topogram: Unremarkable. Lung bases: Extensive subpleural primarily dependent reticulation. Bronchial wall thickening and subsegmental bronchial debris in the lower lobes greater on the left. Scattered bandlike opacities likely atelectasis or scarring. Normal heart size. Coronary artery calcification. No pericardial or pleural effusion. Liver: Normal morphology. Density consistent with hepatic steatosis. Biliary: No gross biliary ductal dilatation allowing for noncontrast technique. Gallbladder surgically absent. Pancreas: Moderate parenchymal atrophy. Spleen: Normal noncontrast appearance. Splenule noted. Adrenal glands: Normal noncontrast appearance. Kidneys and ureters: Mild nonspecific perinephric fat stranding. Few parapelvic cysts suggested bilaterally. Nonobstructing punctate calculus at the lower pole the left kidney. No additional renal calculus. No hydronephrosis. Ureters normal. Bladder: Mild circumferential bladder wall thickening. Pelvic organs: Prostate enlargement likely secondary to benign prostatic hyperplasia. Bowel: Moderate stool burden in the normal caliber colon primarily in the right and transverse colon. The appendix is normal. No bowel obstruction. Peritoneal cavity: No free fluid or intraperitoneal gas. Lymph nodes: No gross lymphadenopathy allowing for noncontrast technique. Vasculature: Atherosclerosis of the abdominal aorta, which is overall normal in caliber though demonstrates irregularity in the infrarenal portion suggesting either chronic dissection or significant calcified and noncalcified atherosclerotic plaque. Abdominal wall: Bilateral gynecomastia. Nonspecific subcutaneous edema in the lumbar region. Musculoskeletal: Degenerative changes of the spine. Osteopenia. Mild anterior wedging deformity of T 11. IMPRESSION: 1. Findings suggest either chronic bladder outlet obstruction or cystitis. Correlate with urinalysis. 2. Prostatomegaly. 3. Nonobstructing left nephrolithiasis. No hydronephrosis. No evidence of a recently passed calculus. 4. Extensive subpleural reticulation at the lung bases with associated bronchial wall thickening and subsegmental bronchial debris. This could suggest chronic aspiration. 5. Age-indeterminate mild compression deformity of T11. Correlate with point tenderness. 6. Osteopenia. Electronically signed by: Milton Aldridge M.D. 09/04/2017 7:53 PM Dictated Date/Time: 09/04/2017 7:46 PM
[2017-09-04 20:06] LABS: INFLUENZA A PCR Neg for Influ A (NEG); INFLUENZA B PCR Neg for Influ B (NEG)
[2017-09-04] MEDS ORDERED: DAPTOmycin IV 650 MG in SODIUM CHLORIDE 0.9% 50ML 50 ML IV SCH (21:00)
[2017-09-04] MEDS ORDERED: ACETAMINOPHEN 325 MG TAB PO STA (21:27)
[2017-09-04] MEDS ORDERED: ACETAMINOPHEN 325 MG TAB ONE (21:29)
[2017-09-04] MEDS: NSS + 20MEQ KCL 1000ML 1,000 ML IV SCH (22:27)
[2017-09-04] MEDS ORDERED: VANCOMYCIN CONSULT ACTIVE PRN (22:30)
[2017-09-04] MEDS ORDERED: MoRPHine SULFATE 4 MG/ML 1 ML CARP\\VIAL IV STA (22:33)
[2017-09-04] MEDS ORDERED: MAGNESIUM HYDROXIDE SUSP 30 ML UDC PO PRN (22:45)
[2017-09-04] MEDS ORDERED: ACETAMINOPHEN 325 MG TAB PO PRN (22:45)
[2017-09-04] MEDS ORDERED: ALUMINUM/MAGNESIUM/SIMETH (MAALOX MAX) 30 ML UDC PO PRN (22:45)
[2017-09-04] MEDS ORDERED: ONDANSETRON INJ 2 MG/ML 2 ML VIAL IV PRN (22:45)
[2017-09-04] MEDS ORDERED: ZOLPIDEM TARTRATE 5 MG TAB PO PRN ×2 (22:45)
[2017-09-04] MEDS ORDERED: POLYETHYLENE (MIRALAX) 17 GM PACK PO PRN (22:45)
[2017-09-04] MEDS ORDERED: NITROGLYCERIN 0.4 MG SL PER TAB CHARGE SL PRN (22:45)
[2017-09-04] MEDS ORDERED: NITROGLYCERIN 0.4 MG SL PER TAB CHARGE UT PRN (23:00)
--- NOTE | 2017-09-04 23:11 | EMERGENCY ROOM VISIT NOTE ---
History Report prepared by Roselyn: Jett Mcarthur Under the Supervision of: Dr. Nelson Maurice M.D. First contact with patient: 18:56 Chief Complaint: FEVER Stated Complaint: FEVER (101.2), CHILLS, LÓPEZ, VOMITING History of Present Illness The patient is a 76 year old male who presents to the Emergency Room with complaints of a sudden onset fever that began at 1630, 2.5 hours prior to arrival. Per the patient's daughter, the patient's symptoms onset very acutely. He was completely fine earlier in the day today and behaving at baseline before his fever onset suddenly. His temperature was 101.2 when they first checked it, and the patient's informed the daughters that he was coughing. The patient is complaining of pain in his back and neck and pretty much all over his body. The daughter notes that he did vomit en route to the hospital, but she believes this could be motion sickness from the car ride. He has a history of hypertension. He denies diarrhea. 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 A total of 10 systems reviewed and were otherwise negative. Past Medical & Surgical Medical Problems: (1) A-fib (2) Hypertensive urgency (3) Intractable headache (4) Sepsis Family History Patient reports no known family medical history. Social History Smoking Status: Never Smoker Drug Use: none Marital Status: Occupation Status: retired Current/Historical Medications Scheduled Amitriptyline Hcl (Elavil), 100 MG PO HS Aspirin (Ecotrin Low Strength), 81 MG PO HS Diltiazem Hcl Coated Beads (Cardizem Cd), 120 MG PO HS Lansoprazole (Prevacid), 30 MG PO QAM Lisinopril (Zestril), 2.5 MG PO QAM Ranitidine Hcl (Zantac), 150 MG PO HS Rosuvastatin Calcium (Crestor), 10 MG PO HS Scheduled PRN Azithromycin (Zithromax), 500 MG PO for 1 hour prior to dental work Nitroglycerin (Nitrostat), 0.4 MG UT PRN PRN for chest pain Allergies Coded Allergies: Iodinated Diagnostic Agents (Verified Allergy, Severe, HIVES, 09/04/17) Amoxicillin (Verified Allergy, Intermediate, HIVES, 10/14/16) BEE STING (Verified Allergy, Intermediate, HIVES, 09/04/17) Cortisone (Verified Allergy, Intermediate, SKIN IRRITATION, 09/04/17) Iodine (Verified Allergy, Intermediate, HIVES, 09/04/17) Penicillins (Verified Allergy, Intermediate, HIVES, 09/04/17) Lorazepam (Verified Adverse Reaction, Mild, MAKES HIM GOOFY, 09/04/17) Physical Exam Vital Signs Date Time Temp Pulse Resp B/P (MAP) Pulse Ox O2 Delivery O2 Flow Rate FiO2 09/04/17 21:46 96 20 147/79 97 Room Air 09/04/17 20:52 105 09/04/17 20:42 99 18 175/74 97 Room Air 09/04/17 20:06 98 18 183/91 98 Room Air 09/04/17 19:21 98 Room Air 09/04/17 19:10 108 20 186/81 98 Room Air 09/04/17 18:49 37.2 115 20 170/85 98 Room Air Physical Exam Constitutional: Vital signs reviewed. Chills. Eyes: Pupils are equal round reactive to light. Conjunctiva are noninjected. ENT: Pharynx is clear without erythema or exudate. Mucous membranes are moist. Neck supple without meningeal signs. Respiratory: Clear to auscultation bilaterally. Breath sounds are equal bilaterally. Cardiovascular: Regular rate and rhythm. No rubs or gallops. GI: Soft, nondistended, with tenderness to palpation in the left lower quadrant. Bowel sounds are present. Musculoskeletal: No peripheral edema. Integumentary: No cyanosis. Neurological: The patient is awake and alert. No focal deficits. Psychiatric: Anxious. Medical Decision & Procedures ER Provider Diagnostic Interpretation: Radiology results as stated below per my review and the radiologist's interpretation: ABD/PELVIS WITHOUT FOR STONE CLINICAL HISTORY: 76 years-old Male presenting with left sided pain and fever. TECHNIQUE: Multidetector CT of the abdomen and pelvis was performed without the use of intravenous contrast. IV contrast: None. A dose lowering technique was used consistent with the principles of ALARA (as low as reasonably achievable). COMPARISON: None. CT DOSE (mGy.cm): The estimated cumulative dose is 1939.69 mGy.cm. FINDINGS: Art Psychotherapist topogram: Unremarkable. Lung bases: Extensive subpleural primarily dependent reticulation. Bronchial wall thickening and subsegmental bronchial debris in the lower lobes greater on the left. Scattered bandlike opacities likely atelectasis or scarring. Normal heart size. Coronary artery calcification. No pericardial or pleural effusion. Liver: Normal morphology. Density consistent with hepatic steatosis. Biliary: No gross biliary ductal dilatation allowing for noncontrast technique. Gallbladder surgically absent. Pancreas: Moderate parenchymal atrophy. Spleen: Normal noncontrast appearance. Splenule noted. Adrenal glands: Normal noncontrast appearance. Kidneys and ureters: Mild nonspecific perinephric fat stranding. Few parapelvic cysts suggested bilaterally. Nonobstructing punctate calculus at the lower pole the left kidney. No additional renal calculus. No hydronephrosis. Ureters normal. Bladder: Mild circumferential bladder wall thickening. Pelvic organs: Prostate enlargement likely secondary to benign prostatic hyperplasia. Bowel: Moderate stool burden in the normal caliber colon primarily in the right and transverse colon. The appendix is normal. No bowel obstruction. Peritoneal cavity: No free fluid or intraperitoneal gas. Lymph nodes: No gross lymphadenopathy allowing for noncontrast technique. Vasculature: Atherosclerosis of the abdominal aorta, which is overall normal in caliber though demonstrates irregularity in the infrarenal portion suggesting either chronic dissection or significant calcified and noncalcified atherosclerotic plaque. Abdominal wall: Bilateral gynecomastia. Nonspecific subcutaneous edema in the lumbar region. Musculoskeletal: Degenerative changes of the spine. Osteopenia. Mild anterior wedging deformity of T 11. IMPRESSION: 1. Findings suggest either chronic bladder outlet obstruction or cystitis. Correlate with urinalysis. 2. Prostatomegaly. 3. Nonobstructing left nephrolithiasis. No hydronephrosis. No evidence of a recently passed calculus. 4. Extensive subpleural reticulation at the lung bases with associated bronchial wall thickening and subsegmental bronchial debris. This could suggest chronic aspiration. 5. Age-indeterminate mild compression deformity of T11. Correlate with point tenderness. 6. Osteopenia. Electronically signed by: Milton Aldridge M.D. 09/04/2017 7:53 PM Dictated Date/Time: 09/04/2017 7:46 PM CHEST ONE VIEW PORTABLE CLINICAL HISTORY: 76 years-old Male presenting with Sepsis. TECHNIQUE: Portable upright AP view of the chest was obtained. COMPARISON: 08/14/2017. FINDINGS: Atherosclerosis of aortic arch. Cardiac silhouette enlarged. Minimal basilar opacities. No pleural effusion or pneumothorax. Degenerative changes of the thoracic spine. IMPRESSION: 1. Cardiomegaly. 2. Bibasilar atelectasis suspected. Electronically signed by: Milton Aldridge M.D. 09/04/2017 7:29 PM Dictated Date/Time: 09/04/2017 7:28 PM Laboratory Results 09/04/17 19:08 Red Blood Count 5.50, Mean Corpuscular Volume 85.8, Mean Corpuscular Hemoglobin 31.5, Mean Corpuscular Hemoglobin Concent 36.7, Mean Platelet Volume 11.0, Neutrophils (%) (Auto) 75.4, Lymphocytes (%) (Auto) 15.7, Monocytes (%) (Auto) 8.2, Eosinophils (%) (Auto) 0.3, Basophils (%) (Auto) 0.1, Neutrophils # (Auto) 5.90, Lymphocytes # (Auto) 1.23, Monocytes # (Auto) 0.64, Eosinophils # (Auto) 0.02, Basophils # (Auto) 0.01 09/04/17 19:08 Test 09/04/17 19:08 09/04/17 19:14 09/04/17 20:30 09/04/17 22:55 White Blood Count 7.82 K/uL (4.8-10.8) Red Blood Count 5.50 M/uL (4.7-6.1) Hemoglobin 17.3 g/dL (14.0-18.0) Hematocrit 47.2 % (42-52) Mean Corpuscular Volume 85.8 fL (80-100) Mean Corpuscular Hemoglobin 31.5 pg (25-34) Mean Corpuscular Hemoglobin Concent 36.7 g/dl (32-36) Platelet Count 142 K/uL (130-400) Mean Platelet Volume 11.0 fL (7.4-10.4) Neutrophils (%) (Auto) 75.4 % Lymphocytes (%) (Auto) 15.7 % Monocytes (%) (Auto) 8.2 % Eosinophils (%) (Auto) 0.3 % Basophils (%) (Auto) 0.1 % Neutrophils # (Auto) 5.90 K/uL (1.4-6.5) Lymphocytes # (Auto) 1.23 K/uL (1.2-3.4) Monocytes # (Auto) 0.64 K/uL (0.11-0.59) Eosinophils # (Auto) 0.02 K/uL (0-0.5) Basophils # (Auto) 0.01 K/uL (0-0.2) RDW Standard Deviation 39.1 fL (36.4-46.3) RDW Coefficient of Variation 12.4 % (11.5-14.5) Immature Granulocyte % (Auto) 0.3 % Immature Granulocyte # (Auto) 0.02 K/uL (0.00-0.02) Prothrombin Time 10.8 SECONDS (9.0-12.0) Prothromb Time International Ratio 1.0 (0.9-1.1) Activated Partial Thromboplast Time 26.4 SECONDS (21.0-31.0) Partial Thromboplastin Ratio 1.0 Anion Gap 9.0 mmol/L (3-11) Estimated GFR () 62.3 Estimated GFR (Non- 53.8 BUN/Creatinine Ratio 12.8 (10-20) Calcium Level 8.6 mg/dl (8.5-10.1) Total Bilirubin 1.1 mg/dl (0.2-1) Aspartate Amino Transf (AST/SGOT) 23 U/L (15-37) Alanine Aminotransferase (ALT/SGPT) 32 U/L (12-78) Alkaline Phosphatase 124 U/L (45-117) Total Protein 7.6 gm/dl (6.4-8.2) Albumin 3.6 gm/dl (3.4-5.0) Globulin 4.0 gm/dl (2.5-4.0) Albumin/Globulin Ratio 0.9 (0.9-2) Influenza Type A (RT-PCR) Neg for Influ A (NEG) Influenza Type B (RT-PCR) Neg for Influ B (NEG) Bedside Lactic Acid Venous 3.10 mmol/L (0.90-1.70) Urine Color YELLOW Urine Appearance CLEAR (CLEAR) Urine pH 7.5 (4.5-7.5) Urine Specific [place] 1.022 (1.000-1.030) Urine Protein NEG (NEG) Urine Glucose (UA) NEG (NEG) Urine Ketones TRACE (NEG) Urine Occult Blood NEG (NEG) Urine Nitrite NEG (NEG) Urine Bilirubin NEG (NEG) Urine Urobilinogen NEG (NEG) Urine Leukocyte Esterase NEG (NEG) Laboratory results as reviewed by me. Medications Administered Medications (Trade) Dose Ordered Sig/Migel Route Start Time Stop Time Status Last Admin Dose Admin Ondansetron HCl (Zofran Inj) 4 mg NOW STAT IV 09/04/17 19:03 09/04/17 19:06 DC 09/04/17 19:11 4 MG Ibuprofen (Advil Tab) 400 mg NOW STAT PO 09/04/17 19:03 09/04/17 19:06 DC 09/04/17 19:12 400 MG Acetaminophen (Tylenol Tab) 650 mg NOW STAT PO 09/04/17 21:27 09/04/17 21:28 DC 09/04/17 21:34 650 MG Potassium Chloride/Sodium Chloride 1,000 ml @ 100 mls/hr Q10H IV 09/04/17 22:14 10/04/17 22:13 09/04/17 22:27 100 MLS/HR ED Course 1858: The patient was evaluated in room B3B. A complete history and physical exam was performed. 1902: Ordered Advil 400 mg PO, Zofran 4 mg IV. 2017: The patient has been unable to provide a urine sample at this time. He consents to catheterization. 2041: I discussed the tests results with the family. They are agreeable to inpatient stay. 2044: I discussed the case with Dr. Pina - [facility] [place] Hospitalist Resident. He will evaluate the patient for further treatment. 2100: Ordered Daptomycin 63 mL @ 100 mL/hr 2100: I discussed the case with Dr. Frederick - Dr. Pina's Attending, who stopped the patient's Daptomycin antibiotic and placed him on Cefepime for a likely pulmonary source. Medical Decision This is a 76-year-old male who presents with fever. Differential diagnosis includes sepsis, pneumonia, UTI, pyelonephritis, influenza, diverticulitis. I did perform a limited focused review of portions of the patient's old chart on the electronic medical record. The patient was in the hospital earlier this month for a fall and nosebleed. I did evaluate the patient as noted above. Patient is presenting with significant Reiger's. He is febrile. I was concerned about sepsis. IV access was established. The patient was placed on a continuous security monitor. Patient was treated with IV Zofran. He was also given Advil. I did order and personally review the patient's chest x-ray as described above. There was some atelectasis at the bases versus infiltrate. I did order and review the patient' s blood work as noted in the electronic medical record. His white blood cell count is not elevated but he does have an elevated lactic acid. Because the patient had left lower abdominal pain, I did order a CT of the abdomen and pelvis. I did review the images myself as well as the radiology report as described above. This showed evidence of bladder wall thickening and some perinephric stranding which was nonspecific. A catheterized urine specimen was sent and did not show any signs of infection. I did treat him with daptomycin for sepsis of unknown origin. He did complain of back pain and he was given Tylenol. I did recommend hospitalization for further evaluation of his symptoms. I did discuss the case with the hospitalist and casework manager. Dr. Frederick did cancel the daptomycin IV and ordered cefepime instead to cover for potential pulmonary source. The patient was complaining of a cough. There was some bronchial debris on CT scanning of his lower lung. Blood Pressure Screening Patient's blood pressure: Elevated blood pressure Referred to Hospitalist. Consults Time Called: 2044 Consulting Physician: Dr. Yovani GIMENEZ Hospitalist Resident Returned Call: 2044 I discussed the case with Dr. Yovani GIMENEZ Hospitalist Resident. He will evaluate the patient for further treatment. Impression Primary Impression: Sepsis Scribe Attestation The scribe's documentation has been prepared under my direct and personally reviewed by me in its entirety. I confirm that the note above accurately reflects all work, treatment, procedures, and medical decision making performed by me. Departure Information Dispostion Being Evaluated By Hospitalist Referrals Fidelia Chapa D.O. (PCP) Patient Instructions My [facility] Problem Qualifiers Primary Impression: Sepsis Sepsis type: sepsis due to unspecified organism Qualified Codes: A41.9 - Sepsis, unspecified organism
[2017-09-04] MEDS ORDERED: VANCOMYCIN IV 2,500 MG in SODIUM CHLORIDE 0.9% 500ML 500 ML IV STA (23:12)
[2017-09-04] MEDS ORDERED: TAMSULOSIN HCL 0.4 MG CAP PO STA (23:15)
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
[2017-09-05] VITALS (10 sets, daily range): BP systolic 117–151; BP diastolic 65–83; PULSE 58–96; TEMP 36.4–37.1; O2SAT 93–98; Ht 182.9 cm; Wt 92.3 kg
[2017-09-05] MEDS ORDERED: OSELTAMIVIR PHOSPHATE 75 MG CAP PO STA (00:22)
[2017-09-05] MEDS: CLINDAMYCIN IV 600 MG in DEXTROSE 5% 50ML 50 ML IV SCH ×3 (00:43→16:30)
[2017-09-05] MEDS: CEFEPIME IV 1,000 MG in SYRINGE 0 ML IV SCH ×2 (02:28→13:32)
[2017-09-05] MEDS: MoRPHine SULFATE 2 MG/ML CARP IV PRN ×2 (03:34→13:32)
--- NOTE | 2017-09-05 06:32 | DIAGNOSTIC IMAGING REPORT ---
HEAD WITHOUT CONTRAST (CT) CT DOSE: HISTORY: Mental status change AMS and left hand tingling TECHNIQUE: Multiaxial CT images of the head were performed without the use of intravenous contrast. A dose lowering technique was utilized adhering to the principles of ALARA. Comparison: 08/14/2017 Findings: Moderate rather significant mucosal thickening of the ethmoid sinuses. The calvarium and skull base are intact. The ventricles and sulci are within normal limits. There is no mass, hematoma, midline shift, or acute infarct. Impression: No acute intracranial abnormality. Age-related change. Considerable mucosal thickening of the ethmoid sinuses. The above report was generated using voice recognition software. It may contain grammatical, syntax or spelling errors. Electronically signed by: Yovani Berg M.D. 09/05/2017 6:31 AM Dictated Date/Time: 09/05/2017 6:30 AM
--- NOTE | 2017-09-05 06:37 | DIAGNOSTIC IMAGING REPORT ---
CERVICAL SPINE W/O CT DOSE: 2213.10 mGy.cm HISTORY: Mental status change left finger numbness TECHNIQUE: Multiaxial CT images of the cervical spine were performed and reformatted in the sagittal and coronal plane without the use of contrast. A dose lowering technique was utilized adhering to the principles of ALARA. COMPARISON: 08/14/2017 FINDINGS: Postoperative changes of the C1-C2 complex which has been described previously. Findings of fusion of C4 through C7 presumably on a degenerative basis. Slight wedging T1 unchanged in the prior study. Considerable degenerative change of the posterior lateral elements. Prevertebral soft tissues are unremarkable. IMPRESSION: 1. No acute abnormality. 2. Degenerative and postoperative changes as described. 3. No change from the prior exam. The above report was generated using voice recognition software. It may contain grammatical, syntax or spelling errors. Electronically signed by: Yovani Berg M.D. 09/05/2017 6:35 AM Dictated Date/Time: 09/05/2017 6:33 AM
--- NOTE | 2017-09-05 07:10 | DIAGNOSTIC IMAGING REPORT ---
CT OF THE CHEST WITHOUT IV CONTRAST CLINICAL HISTORY: Fever. Back pain. Rebound tenderness. COMPARISON STUDY: Chest radiograph September 04, 2017. TECHNIQUE: Axial images of the chest were obtained without IV contrast. Images were reviewed in the axial, sagittal, and coronal planes. IV contrast was not administered for this examination. A dose lowering technique was utilized adhering to the principles of ALARA. FINDINGS: There is bilateral gynecomastia. No enlarged axillary, mediastinal or hilar lymph nodes are present. The heart is moderately enlarged. There is extensive coronary artery calcification. No pericardial effusion is present. Central airways are patent. There is no consolidation to suggest pneumonia. No pneumothorax or pleural effusion is noted. There is subpleural reticulation without honeycombing or traction bronchiectasis. There are multiple old left-sided rib fractures as well as an old fracture of the manubrium and the proximal left clavicle. There is an old T11 compression fracture. No acute thoracic spine compression fracture is noted. Upper abdomen is unremarkable on this unenhanced exam. Gallbladder surgically absent. IMPRESSION: 1. No acute intrathoracic findings. No consolidation to suggest pneumonia. 2. Subpleural reticulation which suggests interstitial lung disease. This may reflect an NSIP pattern. 3. Multiple old posttraumatic findings, as described above. Electronically signed by: Emeka Chilel M.D. 09/05/2017 7:09 AM Dictated Date/Time: 09/05/2017 6:57 AM
[2017-09-05] MEDS: LISINOPRIL 5 MG TAB PO SCH (07:47)
[2017-09-05] MEDS: OSELTAMIVIR PHOSPHATE 75 MG CAP PO SCH ×2 (07:49→20:59)
[2017-09-05] MEDS ORDERED: CEFEPIME IV 1,000 MG in DEXTROSE 5% 100ML 100 ML IV SCH (09:00)
[2017-09-05] MEDS ORDERED: VANCOMYCIN IV 1,000 MG in SODIUM CHLORIDE 0.9% 250ML 250 ML IV SCH (09:00)
[2017-09-05 09:16] LABS: CREATININE 1.08 mg/dl (0.60-1.40)
--- NOTE | 2017-09-05 09:36 | ECHOCARDIOGRAM REPORT ---
*NOTICE TO RECEIVING CONSTITUTION PARTY AGENCY This information is strictly Confidential and protected under [place] law. [place] law prohibits you from making any further disclosure of this information unless further disclosure is expressly permitted by the written consent of the person to whom it pertains or is authorized by law. A general authorization for the release of medical or other information is not sufficient for this purpose. Hospital accepts no responsibility if the information is made available to any other person, INCLUDING THE PATIENT. Interpretation Summary * Name: RONNY JOHNSON Study Date: 09/05/2017 07:07 AM BP: 136/72 mmHg * Patient Location: C.2T\S\S241\S\2 HR: 67 * : 1940 (M/d/yyyy) Gender: Male Height: 72 in * Age: 76 yrs Ethnicity: CA Weight: 241 lb * Ordering Physician: Yovani Call * Referring Physician: Self, Referred * Performed By: Celeste Smith RDCS * * Reason For Study: Endocarditis * BSA: 2.3 m2 * There is no evidence of a mass or vegetation. This does not rule out endocarditis. * -- Conclusions -- * There is mild concentric left ventricular hypertrophy. * Left ventricular systolic function is normal. * Grade I diastolic dysfunction, (abnormal relaxation pattern). * No significant valvular heart disease Procedure Details * A complete two-dimensional transthoracic echocardiogram was performed (2D, M-mode, Doppler and color flow Doppler). Left Ventricle * The left ventricle is normal in size. * There is mild concentric left ventricular hypertrophy. * Ejection Fraction = 55-60%. * Left ventricular systolic function is normal. * Grade I diastolic dysfunction, (abnormal relaxation pattern). * The left ventricular wall motion is normal. Right Ventricle * The right ventricle is normal in size and function. Atria * The left atrial size is normal. * Right atrial size is normal. Mitral Valve * The mitral valve is grossly normal. * Significant mitral regurgitation is absent. Tricuspid Valve * The tricuspid valve anatomy is normal. * Significant tricuspid regurgitation is absent. Aortic Valve * The aortic valve is normal in structure and function. * The aortic valve is trileaflet. * No hemodynamically significant valvular aortic stenosis. * There is no significant aortic regurgitation. Pulmonic Valve * The pulmonic valve is not well visualized. Great Vessels * The aortic root is normal size. Pericardium/Pleural * There is no pericardial effusion. Great Vessels * Normal inferior vena cava diameter and respiratory variation suggests normal central venous pressure. MMode 2D Measurements and Calculations IVSd 1.3 cm LVIDd 4.7 cm LVIDs 3.2 cm LVPWd 1.3 cm IVS/LVPW 1.0 FS 30.9 % EDV(Teich) 100.3 ml ESV(Teich) 41.5 ml EF(Teich) 58.6 % EDV(cubed) 101.1 ml ESV(cubed) 33.3 ml EF(cubed) 67.0 % LV mass(C)d 225.1 grams LV mass(C)dI 97.6 grams/m\S\2 SV(Teich) 58.7 ml SI(Teich) 25.5 ml/m\S\2 SV(cubed) 67.8 ml SI(cubed) 29.4 ml/m\S\2 Ao root diam 2.8 cm Ao root area 6.3 cm\S\2 ACS 2.5 cm asc Aorta Diam 3.5 cm LVOT diam 2.0 cm LVOT area 3.2 cm\S\2 LVAd ap4 35.7 cm\S\2 LVLd ap4 8.8 cm EDV(MOD-sp4) 117.4 ml EDV(sp4-el) 123.0 ml LVAs ap4 21.9 cm\S\2 LVLs ap4 7.8 cm ESV(MOD-sp4) 57.6 ml ESV(sp4-el) 52.6 ml EF(MOD-sp4) 50.9 % EF(sp4-el) 57.2 % LVAd ap2 27.8 cm\S\2 LVLd ap2 8.2 cm EDV(MOD-sp2) 79.7 ml EDV(sp2-el) 79.8 ml LVAs ap2 16.0 cm\S\2 LVLs ap2 6.9 cm ESV(MOD-sp2) 32.6 ml ESV(sp2-el) 31.2 ml EF(MOD-sp2) 59.1 % EF(sp2-el) 60.9 % LVLd %diff -6.67 % EDV(MOD-bp) 100.1 ml LVLs %diff -11.89 % ESV(MOD-bp) 45.7 ml EF(MOD-bp) 54.3 % SV(MOD-sp4) 59.8 ml SI(MOD-sp4) 25.9 ml/m\S\2 SV(MOD-sp2) 47.1 ml SI(MOD-sp2) 20.4 ml/m\S\2 SV(MOD-bp) 54.4 ml SI(MOD-bp) 23.6 ml/m\S\2 SV(sp4-el) 70.4 ml SI(sp4-el) 30.5 ml/m\S\2 SV(sp2-el) 48.7 ml SI(sp2-el) 21.1 ml/m\S\2 Doppler Measurements and Calculations MV E max jessica 71.8 cm/sec MV A max jessica 66.0 cm/sec MV E/A 1.1 MV dec time 0.26 sec Ao V2 max 128.0 cm/sec Ao max PG 6.6 mmHg Ao max PG (full) 3.3 mmHg THEODORE(V,A) 2.2 cm\S\2 THEODORE(V,D) 2.2 cm\S\2 LV V1 max PG 3.3 mmHg LV V1 max 90.2 cm/sec PA V2 max 85.3 cm/sec PA max PG 2.9 mmHg PA acc slope 416.8 cm/sec\S\2 PA acc time 0.14 sec PI max jessica 142.5 cm/sec PI max PG 8.1 mmHg PI dec slope 106.3 cm/sec\S\2 PI P1/2t 392.6 msec PA pr(Accel) 17.2 mmHg
[2017-09-05] MEDS ORDERED: ASPIRIN 81 MG ECTAB PO ONE ×2 (09:51→10:20)
[2017-09-05] MEDS ORDERED: ENOXAPARIN 40 MG/0.4 ML SYR SQ ONE (10:30)
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
--- NOTE | 2017-09-05 12:56 | Hospitalist Progress Note ---
Hospitalist Progress Note Date of Service Sep 05, 2017. (Ambar Catherine .MADDI) Subjective Pt evaluation today including: conversation w/ patient, physical exam, chart review, lab review, review of inpatient medication list Voiding: puente catheter in place Mr. Anthony is feeling better than when he came in but quite unwell. He initially arrived with cough, chills, nausea and vomiting that came on suddenly yesterday. Today he has the same but is no longer vomiting. He complains of head and neck pain, the neck pain is chronic and he is unable to go through range of motion due to past surgeries. He continues to have numbness in his last four finger tips of his left hand. ROS Constitutional: no chills, aches, sweats or fever Respiratory: no sob,cough, sputum, or wheezing Cardiac: no chest pain, palpitations, edema, orthopnea or lightheadedness GI: no abdominal pain, nausea, vomiting, diarrhea or constipation : no dysuria or hesitancy Extremities: see HPI Skin: no rash All other systems reviewed and negative (Ambar Catherine CRNP) Medications Medications Administered Medications (Trade) Dose Ordered Sig/Migel Route Start Time Stop Time Status Last Admin Dose Admin Ondansetron HCl (Zofran Inj) 4 mg NOW STAT IV 09/04/17 19:03 09/04/17 19:06 DC 09/04/17 19:11 4 MG Ibuprofen (Advil Tab) 400 mg NOW STAT PO 09/04/17 19:03 09/04/17 19:06 DC 09/04/17 19:12 400 MG Acetaminophen (Tylenol Tab) 650 mg NOW STAT PO 09/04/17 21:27 09/04/17 21:28 DC 09/04/17 21:34 650 MG Potassium Chloride/Sodium Chloride 1,000 ml @ 100 mls/hr Q10H IV 09/04/17 22:14 10/04/17 22:13 09/04/17 22:27 100 MLS/HR Morphine Sulfate (MoRPHine SULFATE INJ) 4 mg NOW STAT IV 09/04/17 22:33 09/04/17 22:45 DC 09/04/17 23:14 4 MG Clindamycin Phosphate 600 mg/ Dextrose 54 ml @ 100 mls/hr Q8H IV 09/05/17 00:00 09/15/17 00:00 09/05/17 07:47 100 MLS/HR Tamsulosin HCl (Flomax Cap) 0.4 mg NOW STAT PO 09/04/17 23:15 09/04/17 23:16 DC 09/04/17 23:51 0.4 MG Lisinopril (Zestril Tab) 2.5 mg QAM PO 09/05/17 09:00 10/05/17 08:59 09/05/17 07:47 2.5 MG Vancomycin HCl 2500 mg/Sodium Chloride 550 ml @ 200 mls/hr NOW STAT IV 09/04/17 23:12 09/05/17 01:56 DC 09/04/17 23:50 200 MLS/HR Oseltamivir Phosphate (Tamiflu Cap) 75 mg BID PO 09/05/17 09:00 09/10/17 08:59 09/05/17 07:49 75 MG Oseltamivir Phosphate (Tamiflu Cap) 75 mg NOW STAT PO 09/05/17 00:22 09/05/17 00:33 DC 09/05/17 00:56 75 MG Morphine Sulfate (MoRPHine SULFATE INJ) 2 mg Q4H PRN IV 09/05/17 00:30 09/19/17 00:29 09/05/17 03:34 2 MG Cefepime HCl 1000 mg/Syringe 11 ml @ 5.5 mls/min Q12H IV 09/05/17 02:00 09/15/17 01:59 09/05/17 02:28 5.5 MLS/MIN Aspirin (Ecotrin Tab) 81 mg 0951 ONCE PO 09/05/17 09:51 09/05/17 10:03 DC 09/05/17 10:51 81 MG Enoxaparin Sodium (Lovenox Inj) 40 mg 1030 ONCE SQ 09/05/17 10:30 09/05/17 10:31 DC 09/05/17 10:52 40 MG (Ambar Catherine, MADDI) Objective Vital Signs Date Time Temp Pulse Resp B/P (MAP) Pulse Ox O2 Delivery O2 Flow Rate FiO2 09/05/17 11:35 36.4 59 19 134/70 (91) 95 Room Air 09/05/17 08:29 36.4 64 18 121/66 (84) 94 09/05/17 08:00 Room Air 09/05/17 05:41 36.6 67 18 136/72 (93) 95 Room Air 09/05/17 04:00 Room Air 09/05/17 03:31 36.8 80 19 130/70 (90) 95 Room Air 09/05/17 00:10 36.8 96 22 151/77 96 Room Air 09/04/17 23:50 94 22 107/87 95 09/04/17 23:08 174/81 97 Room Air 09/04/17 22:47 94 31 09/04/17 22:17 99 23 09/04/17 22:01 158/83 09/04/17 21:47 97 31 97 09/04/17 21:46 96 20 147/79 97 Room Air 09/04/17 20:52 105 09/04/17 20:42 99 18 175/74 97 Room Air 09/04/17 20:06 98 18 183/91 98 Room Air 09/04/17 19:21 98 Room Air 09/04/17 19:10 108 20 186/81 98 Room Air 09/04/17 18:49 37.2 115 20 170/85 98 Room Air (Ambar Catherine CRNP) Physical Exam Notes: General: no distress Eyes: normal inspection, PERLL Respiratory: chest non tender, bases coarse bilaterally, no respiratory distress , no accessory muscle use Cardiac: regular rate and rhythm, no rub or gallop, no murmur, no edema, no jvd GI/: active bowel sounds, no abd pain or tenderness, soft, non distended Extremities: normal range of motion, normal strength, non tender Neuro/Psych: alert and oriented x 3, normal mood and affect, CN II-XII intact Skin: normal color, dry (Ambar Catherine CRNP) Laboratory Results Last 24 Hours Test 09/04/17 19:08 09/04/17 19:14 09/04/17 20:30 09/04/17 22:55 White Blood Count 7.82 K/uL Red Blood Count 5.50 M/uL Hemoglobin 17.3 g/dL Hematocrit 47.2 % Mean Corpuscular Volume 85.8 fL Mean Corpuscular Hemoglobin 31.5 pg Mean Corpuscular Hemoglobin Concent 36.7 g/dl Platelet Count 142 K/uL Mean Platelet Volume 11.0 fL Neutrophils (%) (Auto) 75.4 % Lymphocytes (%) (Auto) 15.7 % Monocytes (%) (Auto) 8.2 % Eosinophils (%) (Auto) 0.3 % Basophils (%) (Auto) 0.1 % Neutrophils # (Auto) 5.90 K/uL Lymphocytes # (Auto) 1.23 K/uL Monocytes # (Auto) 0.64 K/uL Eosinophils # (Auto) 0.02 K/uL Basophils # (Auto) 0.01 K/uL RDW Standard Deviation 39.1 fL RDW Coefficient of Variation 12.4 % Immature Granulocyte % (Auto) 0.3 % Immature Granulocyte # (Auto) 0.02 K/uL Prothrombin Time 10.8 SECONDS Prothromb Time International Ratio 1.0 Activated Partial Thromboplast Time 26.4 SECONDS Partial Thromboplastin Ratio 1.0 Sodium Level 136 mmol/L Potassium Level 3.5 mmol/L Chloride Level 102 mmol/L Carbon Dioxide Level 25 mmol/L Anion Gap 9.0 mmol/L Blood Urea Nitrogen 16 mg/dl Creatinine 1.27 mg/dl Estimated GFR () 62.3 Estimated GFR (Non- 53.8 BUN/Creatinine Ratio 12.8 Random Glucose 155 mg/dl Calcium Level 8.6 mg/dl Total Bilirubin 1.1 mg/dl Aspartate Amino Transf (AST/SGOT) 23 U/L Alanine Aminotransferase (ALT/SGPT) 32 U/L Alkaline Phosphatase 124 U/L Total Protein 7.6 gm/dl Albumin 3.6 gm/dl Globulin 4.0 gm/dl Albumin/Globulin Ratio 0.9 Procalcitonin 0.07 ng/ml Influenza Type A (RT-PCR) Neg for Influ A Influenza Type B (RT-PCR) Neg for Influ B Bedside Lactic Acid Venous 3.10 mmol/L Urine Color YELLOW Urine Appearance CLEAR Urine pH 7.5 Urine Specific [place] 1.022 Urine Protein NEG Urine Glucose (UA) NEG Urine Ketones TRACE Urine Occult Blood NEG Urine Nitrite NEG Urine Bilirubin NEG Urine Urobilinogen NEG Urine Leukocyte Esterase NEG Lactic Acid Level 1.8 mmol/L Troponin I 0.024 ng/ml Lipase 68 U/L Test 09/05/17 04:32 09/05/17 10:25 Creatinine 1.08 mg/dl Est Creatinine Clear Calc Drug Dose 61.9 ml/min Estimated GFR () 75.8 Estimated GFR (Non- 65.4 Lactic Acid Level 0.9 mmol/L 0.9 mmol/L Troponin I 0.216 ng/ml 0.338 ng/ml (Ambar Catherine ., MADDI) Assessment and Plan Mr. Anthony is a 69 year old man here for Sepsis 2/2 Prostatitis vs Pulm vs Viral CT findings suggest chronic bladder outlet obstruction vs cystitis & Prostomegaly. UC pending Follow up Blood Cultures. POC Lactic Acid was >3, will trend Q6. ABX - Vanco, Cefepime and Clindamycin Continue puente cath Will order echo, with chronic neck pain want to rule out endocarditis. Lipase WNL. Procalcitonin negative - if cultures don't grow anything out within 48 hours, can probably dc abx Type II NH/A.fib/Htn/hld - consulted cardiology - started ASA, continue diltiazem, lisinopril, rosuvastatin, amiodarone - cardiology does not feel the elevation in troponin is an ischemic event, patient is not having chest pain, Troponin 0.3 and trending up - will follow - no A.fib on the monitor ? Influenza/?PNA CT showed extensive subpleural reticulation at the lung bases with associated bronchial wall thickening and subsegmental bronchial debris. This could suggest chronic aspiration.- speech eval did not feel there was concern for aspiration and ordered a diet. - patient clinically appears to have influenza though rapid flus were negative - will treat with Tamiflu and place on droplet precautions - repeat cxr New Onset Left Hand Tingling/ Acute onset worsening of the Neck and Back Pain. CT head negative CT Showed Age-indeterminate mild compression deformity of T11. - this is from a known workplace related injury 20+ years ago. CT Neck and CT Thorax did not show any acute changes GERD c/w H2 Ayaan. DVT Proph: SCDs, enoxaprin Full Code (Ambar Catherine .MADDI) Attending Attestation: Pt seen/examined, chart reviewed, care plan d/w MADDI Catherine. I agree w/ the baltazar components of her documentation. Pt reports "hurting everywhere" including ongoing mild headache. Neck pain is improved. +myalgias. Had no UTI sx's prior to puente insertion. Just "feels terrible". Mild cough as well. VSS afebrile gen - looks sick, nontoxic head - no pain to palpation over sinuses neck - no paraspinal or spinal pain w/ palpation; no meningismus; severely restricted passive ROM due to prior surgeries; midline scars present heart - RRR, s1, s2 lungs - mild end-exp wheeze, bibasilar rales abd - soft, NT, ND ext - no edema flu PCR neg trop - 0.338 CBC, BMP wnl A/P: 1. Febrile illness - exact etiology uncertain - suspicious for the flu even though testing was negative. Would empirically treat w/ tamiflu given his constellation of symptoms. I do not believe he has meningitis despite the headache and sore neck he reported. 2. ?pneumonia - repeat cxr today. Cont cefepime and vanco for now but consider narrowing these as his pneumonia, if truly present, would be community- acquired. Would d/c the clindamycin. 3. BPH with ?prostatitis - urine cx negative, but will perform JOYA tomorrow to exclude prostatitis to be complete. 4. positive troponin - likely myocardial demand ischemia in setting of #1 above. Appreciate cardiology consultation. Would place in respiratory (droplet) isolation to be on safe side. Guerrero Blount MD (Guerrero Blount MD)
[2017-09-05] MEDS: NSS + 20MEQ KCL 1000ML 1,000 ML IV SCH ×2 (13:22→18:14)
--- NOTE | 2017-09-05 14:09 | Pharmacy Progress Note ---
Pharmacy Abx Initial Consult Date of Service Sep 05, 2017. Pharmacy Dosing Scope Date of Consult: 09/04/17 Consultation requested by: Dr. Call Pharmacy is consulted to initiate Vancomycin dosing therapy, order appropriate labs and adjust drug dose/frequency. Subjective The patient is a 76 year old male admitted on Sep 04, 2017 at 22:49 with sudden onset of fever, cough and body aches. He was started on broad spectrum antibiotics including Vancomycin, Cefepime and Clindamycin. Tamiflu was also initiated. He was admitted to telemetry to rule out Sepsis, Prostatitis & PNX versus possibly viral component. There is still some feeling that he could have had some aspiration although speech ruled out precautions and ordered him a diet. Objective Height (Feet): 6 Height (Inches): 0.00 Weight (Kilograms): 92.300 Vital Signs (Past 12Hrs) Vital Signs Past 12 Hours Date Time Temp Pulse Resp B/P (MAP) Pulse Ox O2 Delivery O2 Flow Rate FiO2 09/05/17 13:36 36.5 59 18 126/72 (90) 93 Room Air 09/05/17 12:00 Room Air 09/05/17 11:35 36.4 59 19 134/70 (91) 95 Room Air 09/05/17 08:29 36.4 64 18 121/66 (84) 94 09/05/17 08:00 Room Air 09/05/17 05:41 36.6 67 18 136/72 (93) 95 Room Air 09/05/17 04:00 Room Air 09/05/17 03:31 36.8 80 19 130/70 (90) 95 Room Air Lab Results (24Hrs) Laboratory Tests (24 Hours) Test 09/04/17 19:08 09/05/17 10:25 White Blood Count 7.82 K/uL (4.8-10.8) Red Blood Count 5.50 M/uL (4.7-6.1) Hemoglobin 17.3 g/dL (14.0-18.0) Hematocrit 47.2 % (42-52) Mean Corpuscular Volume 85.8 fL (80-100) Mean Corpuscular Hemoglobin 31.5 pg (25-34) Mean Corpuscular Hemoglobin Concent 36.7 g/dl (32-36) H Platelet Count 142 K/uL (130-400) Mean Platelet Volume 11.0 fL (7.4-10.4) H Neutrophils (%) (Auto) 75.4 % Lymphocytes (%) (Auto) 15.7 % Monocytes (%) (Auto) 8.2 % Eosinophils (%) (Auto) 0.3 % Basophils (%) (Auto) 0.1 % Neutrophils # (Auto) 5.90 K/uL (1.4-6.5) Lymphocytes # (Auto) 1.23 K/uL (1.2-3.4) Monocytes # (Auto) 0.64 K/uL (0.11-0.59) H Eosinophils # (Auto) 0.02 K/uL (0-0.5) Basophils # (Auto) 0.01 K/uL (0-0.2) Procalcitonin 0.07 ng/ml (0-0.5) Lactic Acid Level 0.9 mmol/L (0.4-2.0) Micro Results Date/Time Source Procedure Growth Status 09/04/17 19:57 Blood Blood Culture Pending Received 09/04/17 19:08 Blood Blood Culture Pending Received 09/04/17 20:30 Urine,Catheterized Urine Culture - Preliminary NO GROWTH - LESS THAN 1,000 COLONIES/... Resulted Assessment & Plan Assessment 76 year old male with fever, aches, chills and cough Plan Vancomycin for empiric treatment of sepsis Vancomycin IV * Loading dose: 2500 mg (~23 mg/kg) * Maintenance dose: 1500 mg IV ([16 mg/kg) every 14 hours * Goal trough level : 15-20 mcg/mL * Trough level ordered for 09/07/17 prior to 0800 dose. Pharmacy will continue to follow and will adjust dose/frequency as necessary. Thank you.
[2017-09-05] MEDS: VANCOMYCIN IV 1,500 MG in SODIUM CHLORIDE 0.9% 500ML 500 ML IV SCH (14:32)
--- NOTE | 2017-09-05 14:38 | DIAGNOSTIC IMAGING REPORT ---
CHEST ONE VIEW PORTABLE CLINICAL HISTORY: cough dyspnea COMPARISON STUDY: 09/04/2017 FINDINGS: Mild cardiomegaly. Stable left basilar interstitial prominence. Suboptimal visibility left hemidiaphragm. Mild chronic elevation right hemidiaphragm. IMPRESSION: Cardiomegaly. Unchanged interstitial prominence/interstitial infiltrate left base. The above report was generated using voice recognition software. It may contain grammatical, syntax or spelling errors. Electronically signed by: Yovani Berg M.D. 09/05/2017 2:37 PM Dictated Date/Time: 09/05/2017 2:35 PM
--- NOTE | 2017-09-05 17:27 | Cardiology Follow-Up ---
Subjective Date of Service: Sep 05, 2017. Pt evaluation today including: conversation w/ patient, conversation w/ family , physical exam, chart review, lab review, review of studies, review of inpatient medication list History of Present Illness I saw and examined the patient seen earlier by Jalen Kaur PA-C. I agree with the documentation in his [facility] consult. Briefly the patient had symptoms a systemic infection and was noted to have elevated cardiac biomarkers. Patient has had coronary symptoms in the past that were distinct from his current presentation. At the time of my interview the patient is feeling better. His neck and arm discomfort appear to have resolved tire Tosin at this point. Social History Smoking Status: Never Smoker History of Alcohol Use: No Objective Vital Signs Past 12 Hours Date Time Temp Pulse Resp B/P (MAP) Pulse Ox O2 Delivery O2 Flow Rate FiO2 09/05/17 16:00 Room Air 09/05/17 15:34 36.6 58 22 117/70 (86) 93 Room Air 09/05/17 13:36 36.5 59 18 126/72 (90) 93 Room Air 09/05/17 12:00 Room Air 09/05/17 11:35 36.4 59 19 134/70 (91) 95 Room Air 09/05/17 08:29 36.4 64 18 121/66 (84) 94 09/05/17 08:00 Room Air 09/05/17 05:41 36.6 67 18 136/72 (93) 95 Room Air Last Recorded Weight-Kilograms: 92.300 Intake & Output 8-Hour Column 09/05/17 09/06/17 09/06/17 16:00 00:00 08:00 Intake Total 900 ml Output Total 1175 ml Balance -275 ml 24-Hour Column 09/06/17 08:00 Intake Total 900 ml Output Total 1175 ml Balance -275 ml Physical Exam The patient is alert and oriented. Mood and affect appeared normal. He answered all questions appropriately. HEENT: Pupils are equal and reactive to light and accommodation. Extraocular movements are intact. The sclerae are anicteric. Neuro: Cranial nerves intact Neck: Patient's neck is supple. He has palpable carotid pulses bilaterally without bruits on auscultation. There is no evidence of jugular venous distention. The thyroid is not enlarged. Lungs: Clear to auscultation bilaterally. He has good air movement without use of accessory muscles. No rales wheezes or rhonchi. Cardiac: Heart demonstrates a regular rate and rhythm. Normal S1 and S2. No murmurs on examination. Pulses: The patient has palpable radial pulses bilaterally that are equal in intensity Extremities: There was no evidence of hypoperfusion. There is no cyanosis or clubbing. There is no edema. Skin: I did not appreciate any rashes on examination today. Data Laboratory Results: Last 24 Hours Test 09/04/17 19:08 09/04/17 19:14 09/04/17 20:30 09/04/17 22:55 White Blood Count 7.82 K/uL Red Blood Count 5.50 M/uL Hemoglobin 17.3 g/dL Hematocrit 47.2 % Mean Corpuscular Volume 85.8 fL Mean Corpuscular Hemoglobin 31.5 pg Mean Corpuscular Hemoglobin Concent 36.7 g/dl Platelet Count 142 K/uL Mean Platelet Volume 11.0 fL Neutrophils (%) (Auto) 75.4 % Lymphocytes (%) (Auto) 15.7 % Monocytes (%) (Auto) 8.2 % Eosinophils (%) (Auto) 0.3 % Basophils (%) (Auto) 0.1 % Neutrophils # (Auto) 5.90 K/uL Lymphocytes # (Auto) 1.23 K/uL Monocytes # (Auto) 0.64 K/uL Eosinophils # (Auto) 0.02 K/uL Basophils # (Auto) 0.01 K/uL RDW Standard Deviation 39.1 fL RDW Coefficient of Variation 12.4 % Immature Granulocyte % (Auto) 0.3 % Immature Granulocyte # (Auto) 0.02 K/uL Prothrombin Time 10.8 SECONDS Prothromb Time International Ratio 1.0 Activated Partial Thromboplast Time 26.4 SECONDS Partial Thromboplastin Ratio 1.0 Sodium Level 136 mmol/L Potassium Level 3.5 mmol/L Chloride Level 102 mmol/L Carbon Dioxide Level 25 mmol/L Anion Gap 9.0 mmol/L Blood Urea Nitrogen 16 mg/dl Creatinine 1.27 mg/dl Estimated GFR () 62.3 Estimated GFR (Non- 53.8 BUN/Creatinine Ratio 12.8 Random Glucose 155 mg/dl Calcium Level 8.6 mg/dl Total Bilirubin 1.1 mg/dl Aspartate Amino Transf (AST/SGOT) 23 U/L Alanine Aminotransferase (ALT/SGPT) 32 U/L Alkaline Phosphatase 124 U/L Total Protein 7.6 gm/dl Albumin 3.6 gm/dl Globulin 4.0 gm/dl Albumin/Globulin Ratio 0.9 Procalcitonin 0.07 ng/ml Influenza Type A (RT-PCR) Neg for Influ A Influenza Type B (RT-PCR) Neg for Influ B Bedside Lactic Acid Venous 3.10 mmol/L Urine Color YELLOW Urine Appearance CLEAR Urine pH 7.5 Urine Specific [place] 1.022 Urine Protein NEG Urine Glucose (UA) NEG Urine Ketones TRACE Urine Occult Blood NEG Urine Nitrite NEG Urine Bilirubin NEG Urine Urobilinogen NEG Urine Leukocyte Esterase NEG Lactic Acid Level 1.8 mmol/L Troponin I 0.024 ng/ml Lipase 68 U/L Test 09/05/17 04:32 09/05/17 10:25 09/05/17 16:30 Creatinine 1.08 mg/dl Est Creatinine Clear Calc Drug Dose 61.9 ml/min Estimated GFR () 75.8 Estimated GFR (Non- 65.4 Lactic Acid Level 0.9 mmol/L 0.9 mmol/L Troponin I 0.216 ng/ml 0.338 ng/ml Assessment and Plan I would agree with the initial impression that this is likely not a acute coronary syndrome. Likely represents demand ischemia an individual with known coronary disease and a likely old inferior myocardial infarction. Undoubtedly he has areas of poor perfusion that under stress such as systemic illness may result in elevated cardiac biomarkers. Overall LV function appears to be normal. He is on a reasonable medical regimen currently. I think we can continue to monitor him for symptoms of worsening ischemia as his systemic illness improves. I do not think any additional cardiovascular testing is required in the absence of new symptoms or objective findings.
[2017-09-05] MEDS: ALBUT/IPRATROP 3MG/0.5MG NEB 3 ML VIAL INH SCH (20:00)
[2017-09-05] MEDS: DILTIAZEM HCL 120 MG CAPCR PO SCH (20:59)
[2017-09-05] MEDS: RANITIDINE HCL 150 MG TAB PO SCH (21:00)
[2017-09-05] MEDS: TAMSULOSIN HCL 0.4 MG CAP PO SCH (21:00)
[2017-09-05] MEDS: AMITRIPTYLINE HCL 50 MG TAB PO SCH (21:00)
[2017-09-05] MEDS: ROSUVASTATIN CALCIUM 10 MG TAB PO SCH (22:44)
[2017-09-06] VITALS (10 sets, daily range): BP systolic 129–177; BP diastolic 69–77; PULSE 60–86; TEMP 36.4–37; O2SAT 94–100
[2017-09-06] MEDS: NSS + 20MEQ KCL 1000ML 1,000 ML IV SCH ×2 (01:46→14:14)
[2017-09-06] MEDS: CEFEPIME IV 1,000 MG in SYRINGE 0 ML IV SCH ×2 (01:48→15:23)
[2017-09-06] MEDS: VANCOMYCIN IV 1,500 MG in SODIUM CHLORIDE 0.9% 500ML 500 ML IV SCH ×2 (03:56→18:59)
[2017-09-06] MEDS: ALBUT/IPRATROP 3MG/0.5MG NEB 3 ML VIAL INH SCH ×4 (07:31→20:08)
[2017-09-06 07:34] LABS: CALCIUM 8.1 mg/dl (8.5-10.1); CREATININE 1.03 mg/dl (0.60-1.40)
[2017-09-06] MEDS ORDERED: ASPIRIN 81 MG ECTAB PO SCH (09:00)
[2017-09-06] MEDS: LISINOPRIL 5 MG TAB PO SCH (09:13)
[2017-09-06] MEDS: OSELTAMIVIR PHOSPHATE 75 MG CAP PO SCH ×2 (09:14→20:44)
[2017-09-06] MEDS: ASPIRIN 81 MG ECTAB PO SCH (09:14)
[2017-09-06] MEDS: ENOXAPARIN 40 MG/0.4 ML SYR SQ SCH (09:14)
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
[2017-09-06] MEDS: PANTOprazole SOD 40 MG TAB PO SCH (11:12)
[2017-09-06] MEDS ORDERED: TAMSULOSIN HCL 0.4 MG CAP PO ONE (14:30)
--- NOTE | 2017-09-06 15:18 | Cardiology Follow-Up ---
Subjective Date of Service: Sep 06, 2017. Pt evaluation today including: conversation w/ patient, conversation w/ family , physical exam, chart review, lab review, review of studies, review of inpatient medication list History of Present Illness This morning the patient is feeling much better. He has had some limited ambulation but overall has been feeling well. He continues to have a headache but no significant neck or back pain. He has some very minor paresthesias in the tips of his left finger tips but no other arm pain. He denies breathing difficulty. Social History Smoking Status: Never Smoker History of Alcohol Use: No Objective Vital Signs Past 12 Hours Date Time Temp Pulse Resp B/P (MAP) Pulse Ox O2 Delivery O2 Flow Rate FiO2 09/06/17 12:30 36.6 76 20 129/70 (89) 100 Room Air 09/06/17 11:07 86 18 95 Room Air 09/06/17 10:36 36.9 86 18 95 09/06/17 07:42 36.9 69 20 161/69 (99) 96 Room Air 09/06/17 07:40 Room Air 09/06/17 07:31 78 18 97 Room Air 09/06/17 04:00 Room Air 09/06/17 03:20 37.0 60 18 136/73 (94) 96 CPAP Last Recorded Weight-Kilograms: 92.300 Intake & Output 8-Hour Column 09/06/17 09/07/17 09/07/17 16:00 00:00 08:00 Intake Total 344 ml Output Total 1550 ml Balance -1206 ml 24-Hour Column 09/07/17 08:00 Intake Total 344 ml Output Total 1550 ml Balance -1206 ml Physical Exam The patient is alert and oriented. Mood and affect appeared normal. He answered all questions appropriately. HEENT: Pupils are equal and reactive to light and accommodation. Extraocular movements are intact. The sclerae are anicteric. Neuro: Cranial nerves intact Neck: Patient's neck is supple. He has palpable carotid pulses bilaterally without bruits on auscultation. There is no evidence of jugular venous distention. The thyroid is not enlarged. Lungs: Clear to auscultation bilaterally. He has good air movement without use of accessory muscles. No rales wheezes or rhonchi. Cardiac: Heart demonstrates a regular rate and rhythm. Normal S1 and S2. No murmurs on examination. Pulses: The patient has palpable radial pulses bilaterally that are equal in intensity Extremities: There was no evidence of hypoperfusion. There is no cyanosis or clubbing. There is no edema. Skin: I did not appreciate any rashes on examination today. Data Laboratory Results: Last 24 Hours Test 09/05/17 16:30 09/06/17 06:19 Troponin I 0.277 ng/ml Sodium Level 138 mmol/L Potassium Level 4.0 mmol/L Chloride Level 107 mmol/L Carbon Dioxide Level 25 mmol/L Anion Gap 6.0 mmol/L Blood Urea Nitrogen 13 mg/dl Creatinine 1.03 mg/dl Est Creatinine Clear Calc Drug Dose 64.9 ml/min Estimated GFR () 80.3 Estimated GFR (Non- 69.3 BUN/Creatinine Ratio 12.7 Random Glucose 97 mg/dl Calcium Level 8.1 mg/dl Telemetry reviewed: No significant arrhythmia Assessment and Plan Coronary artery disease: Patient likely had an old inferior infarct. His echocardiogram reveals preserved LV function and normal wall motion. I suspect he has an area of poor perfusion and in the setting of an acute illness had some minor ischemia. However, he does not report symptoms of angina or coronary insufficiency at other times. Overall he is feeling much better. We have not altered his outpatient regimen. Most individuals with a significant cardiac history would be on beta-blockade. Patient's family is unsure regarding the absence of that medication but do recall the name. Patient is followed closely by his own information assurance analyst and I do not think we need to change his medical therapy at this time.
[2017-09-06] MEDS: RANITIDINE HCL 150 MG TAB PO SCH (20:44)
[2017-09-06] MEDS: AMITRIPTYLINE HCL 50 MG TAB PO SCH (20:44)
[2017-09-06] MEDS: ROSUVASTATIN CALCIUM 10 MG TAB PO SCH (20:44)
[2017-09-06] MEDS: TAMSULOSIN HCL 0.4 MG CAP PO SCH (20:44)
[2017-09-06] MEDS: DILTIAZEM HCL 120 MG CAPCR PO SCH (20:44)
[2017-09-07 00:52] VITALS: BP 158/68; PULSE 73; TEMP 35.9; O2SAT 96
[2017-09-07] MEDS: CEFEPIME IV 1,000 MG in SYRINGE 0 ML IV SCH ×2 (02:09→13:30)
[2017-09-07] MEDS: ALBUT/IPRATROP 3MG/0.5MG NEB 3 ML VIAL INH SCH (06:54)
[2017-09-07 06:56] VITALS: PULSE 70; O2SAT 97
[2017-09-07] MEDS ORDERED: VANCOMYCIN TROUGH ONE (07:30)
[2017-09-07] MEDS: VANCOMYCIN IV 1,500 MG in SODIUM CHLORIDE 0.9% 500ML 500 ML IV SCH (08:10)
[2017-09-07] MEDS: PANTOprazole SOD 40 MG TAB PO SCH (08:11)
[2017-09-07] MEDS: ASPIRIN 81 MG ECTAB PO SCH (08:11)
[2017-09-07] MEDS: OSELTAMIVIR PHOSPHATE 75 MG CAP PO SCH ×2 (08:11→21:00)
[2017-09-07] MEDS: LISINOPRIL 5 MG TAB PO SCH (08:12)
[2017-09-07] MEDS: ENOXAPARIN 40 MG/0.4 ML SYR SQ SCH (08:12)
[2017-09-07 08:21] VITALS: BP 150/64; PULSE 84; TEMP 36.4; O2SAT 92
[2017-09-07 08:32] LABS: CREATININE 0.97 mg/dl (0.60-1.40)
[2017-09-07] MEDS ORDERED: TAMSULOSIN HCL 0.4 MG CAP PO SCH (09:00)
[2017-09-07] MEDS ORDERED: ALBUT/IPRATROP 3MG/0.5MG NEB 3 ML VIAL INH PRN (10:45)
[2017-09-07 16:11] VITALS: BP 150/75; PULSE 63; TEMP 36.5; O2SAT 96
[2017-09-07] MEDS ORDERED: LEVOFLOXACIN 750 MG TAB PO SCH (21:00)
[2017-09-07] MEDS: ROSUVASTATIN CALCIUM 10 MG TAB PO SCH (21:00)
[2017-09-07] MEDS: RANITIDINE HCL 150 MG TAB PO SCH (21:00)
[2017-09-07] MEDS: TAMSULOSIN HCL 0.4 MG CAP PO SCH (21:00)
[2017-09-07] MEDS: AMITRIPTYLINE HCL 50 MG TAB PO SCH (21:00)
[2017-09-07] MEDS: DILTIAZEM HCL 120 MG CAPCR PO SCH (21:00)
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
[2017-09-08 00:04] VITALS: BP 144/64; PULSE 63; TEMP 36.4; O2SAT 97
[2017-09-08 07:08] VITALS: BP 134/72; PULSE 64; TEMP 36.4; O2SAT 95
--- NOTE | 2017-09-08 07:22 | DIAGNOSTIC IMAGING REPORT ---
CT HEAD WITHOUT CONTRAST (CT) CLINICAL HISTORY: Mental status change. Sepsis. New onset headache. COMPARISON STUDY: 09/04/2017 TECHNIQUE: Axial CT of the brain is performed from the vertex to the skull base. IV contrast was not administered for this examination. A dose lowering technique was utilized adhering to the principles of ALARA. CT DOSE: FINDINGS: No intra or extra-axial mass lesions are visualized. There is no CT evidence of acute cortical infarction. There is no evidence of midline shift. There is no acute hemorrhage. No calvarial fractures are visualized. There are minimal white matter hypodensities likely on a small vessel basis. There is no evidence of pathologic ventricular dilatation. There is no evidence of acute sinusitis. Postsurgical changes involve the posterior C1 arch. There is a chronic deformity the right temporal mandibular joint with possible chronic subluxation. IMPRESSION: No acute intracranial findings Electronically signed by: Kentrell Gr M.D. 09/08/2017 7:21 AM Dictated Date/Time: 09/08/2017 7:19 AM
[2017-09-08 08:00] VITALS: O2SAT 95
[2017-09-08] MEDS: OSELTAMIVIR PHOSPHATE 75 MG CAP PO SCH (08:06)
[2017-09-08] MEDS: PANTOprazole SOD 40 MG TAB PO SCH (08:06)
[2017-09-08] MEDS: LISINOPRIL 5 MG TAB PO SCH (08:06)
[2017-09-08] MEDS: ENOXAPARIN 40 MG/0.4 ML SYR SQ SCH (08:07)
[2017-09-08] MEDS: ASPIRIN 81 MG ECTAB PO SCH (08:07)
[2017-09-08 08:09] LABS: BASO % 0.3 %; BASO ABS # 0.01 K/uL (0-0.2); EOS % 6.3 %; EOS ABS # 0.22 K/uL (0-0.5); HEMATOCRIT 40.8 % (42-52); HEMOGLOBIN 14.2 g/dL (14.0-18.0); IG# 0.01 K/uL (0.00-0.02); LYMPH % 27.7 %; LYMPH ABS # 0.97 K/uL (1.2-3.4); MEAN CORPUSCULAR HEMOGLOBIN 30.3 pg (25-34); MEAN CORPUSCULAR HGB CONC 34.8 g/dl (32-36); MEAN PLATELET VOLUME 10.3 fL (7.4-10.4); MONO % 11.1 %; MONO ABS # 0.39 K/uL (0.11-0.59); NEUT % 54.3 %; PLATELET COUNT 114 K/uL (130-400); RED CELL DISTRIBUTION WIDTH CV 12.6 % (11.5-14.5); RED CELL DISTRIBUTION WIDTH SD 40.4 fL (36.4-46.3)
[2017-09-08 08:41] LABS: CALCIUM 8.1 mg/dl (8.5-10.1); CREATININE 0.89 mg/dl (0.60-1.40); POTASSIUM 3.8 mmol/L (3.5-5.1)
--- NOTE | 2017-09-08 09:45 | Urology Consultation ---
History General Date of Service: Sep 08, 2017. Chief Complaint: urinary retention Primary Care Physician: Fidelia Chapa D.O. Pt seen a urologist before?: No History of Present Illness 76 yo male admitted with fevers. Pt developed UR while inpatient, and puente catheter was placed. consulted for this issue. Pt noted to have been straight cathed for 600ml urine return while in the ED. Puente currently in place draining clear, yellow urine this morning. Flomax has been initiated. The pt reports worsening weak stream and incomplete emptying prior to admission. CT showing HARRIS and prostatomegaly. Imaging Imaging: CT Laboratory Last 24 Hours Test 09/08/17 07:16 White Blood Count 3.50 K/uL Red Blood Count 4.69 M/uL Hemoglobin 14.2 g/dL Hematocrit 40.8 % Mean Corpuscular Volume 87.0 fL Mean Corpuscular Hemoglobin 30.3 pg Mean Corpuscular Hemoglobin Concent 34.8 g/dl Platelet Count 114 K/uL Mean Platelet Volume 10.3 fL Neutrophils (%) (Auto) 54.3 % Lymphocytes (%) (Auto) 27.7 % Monocytes (%) (Auto) 11.1 % Eosinophils (%) (Auto) 6.3 % Basophils (%) (Auto) 0.3 % Neutrophils # (Auto) 1.90 K/uL Lymphocytes # (Auto) 0.97 K/uL Monocytes # (Auto) 0.39 K/uL Eosinophils # (Auto) 0.22 K/uL Basophils # (Auto) 0.01 K/uL RDW Standard Deviation 40.4 fL RDW Coefficient of Variation 12.6 % Immature Granulocyte % (Auto) 0.3 % Immature Granulocyte # (Auto) 0.01 K/uL Sodium Level 139 mmol/L Potassium Level 3.8 mmol/L Chloride Level 105 mmol/L Carbon Dioxide Level 28 mmol/L Anion Gap 6.0 mmol/L Blood Urea Nitrogen 15 mg/dl Creatinine 0.89 mg/dl Est Creatinine Clear Calc Drug Dose 75.1 ml/min Estimated GFR () 94.9 Estimated GFR (Non- 81.9 BUN/Creatinine Ratio 16.6 Random Glucose 99 mg/dl Calcium Level 8.1 mg/dl Problem List Medical Problems: (1) Hypertensive emergency Status: Acute Past History A Fib, myocardial infarction, other (chronic back pain ) Past Surgical History: angioplasty with stent (coronary artery) Family History Patient reports no known family medical history. Social History Hx Tobacco Use In Past Year?: No Smoking: non-smoker Alcohol: never Drug use: none Marital status: Housing status: lives with family Occupation status: retired Immunizations History of Influenza Vaccine: Unknown History of Tetanus Vaccine?: Unknown History of Pneumococcal: Unknown History of Hepatitis B Vaccine: Unknown History of MDRO No Allergies Coded Allergies: Iodinated Diagnostic Agents (Verified Allergy, Severe, HIVES, 09/04/17) Amoxicillin (Verified Allergy, Intermediate, HIVES, 10/14/16) BEE STING (Verified Allergy, Intermediate, HIVES, 09/04/17) Cortisone (Verified Allergy, Intermediate, SKIN IRRITATION, 09/04/17) Iodine (Verified Allergy, Intermediate, HIVES, 09/04/17) Penicillins (Verified Allergy, Intermediate, HIVES, 09/04/17) Lorazepam (Verified Adverse Reaction, Mild, MAKES HIM GOOFY, 09/04/17) Medications Home Medications: Home Meds and Scripts Medications Dose Route/Sig Max Daily Dose Days Date Category Zestril (Lisinopril) 5 Mg Tab 2.5 Mg PO QAM 10/14/16 Reported Zithromax (Azithromycin) 500 Mg Tab 500 Mg PO PRN 10/14/16 Reported Nitrostat (Nitroglycerin) 0.4 Mg Tab 0.4 Mg UT PRN PRN 10/14/16 Reported Cardizem Cd (Diltiazem Hcl Coated Beads) 240 Mg Cap 120 Mg PO HS 10/14/16 Reported Crestor (Rosuvastatin Calcium) 5 Mg Tab 10 Mg PO HS 10/14/16 Reported Zantac (Ranitidine HCl) 150 Mg Tab 150 Mg PO HS 10/14/16 Reported Elavil (Amitriptyline HCl) 50 Mg Tab 100 Mg PO HS 10/14/16 Reported Ecotrin Low Strength (Aspirin) 81 Mg Tab 81 Mg PO HS 10/14/16 Reported Prevacid (Lansoprazole) 30 Mg Capcr 30 Mg PO QAM 10/14/16 Reported Inpatient Medications: Current Inpatient Medications Medications (Trade) Dose Ordered Sig/Migel Route Start Time Stop Time Status Last Admin Dose Admin Tamsulosin HCl (Flomax Cap) 0.4 mg HS PO 09/05/17 21:00 10/05/17 20:59 09/06/17 20:44 0.4 MG Acetaminophen (Tylenol Tab) 650 mg Q4H PRN PO 09/04/17 22:45 10/04/17 22:44 09/05/17 21:18 650 MG Al Hydrox/Mg Hydrox/Simethicone (Maalox Max Susp) 15 ml Q4H PRN PO 09/04/17 22:45 10/04/17 22:44 09/05/17 14:48 15 ML Magnesium Hydroxide (Milk Of Magnesia Susp) 30 ml Q12H PRN PO 09/04/17 22:45 10/04/17 22:44 Zolpidem Tartrate (Ambien Tab) 5 mg HSZ PRN PO 09/04/17 22:45 10/04/17 22:44 09/06/17 01:46 5 MG Ondansetron HCl (Zofran Inj) 4 mg Q6H PRN IV 09/04/17 22:45 10/04/17 22:44 Nitroglycerin (Nitrostat Tab) 0.4 mg UD PRN SL 09/04/17 22:45 10/04/17 22:44 Polyethylene (Miralax Powder Packet) 17 gm DAILY PRN PO 09/04/17 22:45 10/04/17 22:44 Amitriptyline HCl (Elavil Tab) 100 mg HS PO 09/05/17 21:00 10/05/17 20:59 09/06/17 20:44 100 MG Diltiazem HCl (Cardizem Cd Cap) 120 mg HS PO 09/05/17 21:00 10/05/17 20:59 09/06/17 20:44 120 MG Lisinopril (Zestril Tab) 2.5 mg QAM PO 09/05/17 09:00 10/05/17 08:59 09/08/17 08:06 2.5 MG Ranitidine HCl (zANTac TAB) 150 mg HS PO 09/05/17 21:00 10/05/17 20:59 09/06/17 20:44 150 MG Rosuvastatin Calcium (Crestor Tab) 10 mg HS PO 09/05/17 21:00 10/05/17 20:59 09/06/17 20:44 10 MG Oseltamivir Phosphate (Tamiflu Cap) 75 mg BID PO 09/05/17 09:00 09/10/17 08:59 09/08/17 08:06 75 MG Morphine Sulfate (MoRPHine SULFATE INJ) 2 mg Q4H PRN IV 09/05/17 00:30 09/19/17 00:29 09/05/17 13:32 2 MG Aspirin (Ecotrin Tab) 81 mg QAM PO 09/06/17 09:00 10/06/17 08:59 09/08/17 08:07 81 MG Enoxaparin Sodium (Lovenox Inj) 40 mg QAM SQ 09/06/17 09:00 10/06/17 08:59 09/08/17 08:07 40 MG Pantoprazole Sodium (Protonix Tab) 40 mg QAM PO 09/07/17 09:00 10/07/17 08:59 09/08/17 08:06 40 MG Albuterol/ Ipratropium (Duoneb) 3 ml Q2R PRN INH 09/07/17 10:45 10/07/17 10:44 Levofloxacin (Levaquin Tab) 750 mg Q24H PO 09/07/17 21:00 09/14/17 20:59 Review of Systems Review of Systems Constitutional: No fever, No chills Eyes: No double vision Neurological: No dizzy Endocrine: No excessive thirst Gastrointestinal: No abdominal pain, No nausea, No vomiting Cardiovascular: No chest pain Respiratory: No shortness of breath Skin: No rash Musculoskeletal: + arthritis Male : + urinary retention, No blood in urine Physical Exam Vital Signs: Vital Signs Past 12 Hours Date Time Temp Pulse Resp B/P (MAP) Pulse Ox O2 Delivery O2 Flow Rate FiO2 09/08/17 08:00 95 Room Air 09/08/17 07:08 36.4 64 18 134/72 (92) 95 Room Air 09/08/17 00:04 36.4 63 20 144/64 (90) 97 CPAP 09/08/17 00:00 CPAP Physical Exam: General Appearance: no apparent distress Eyes: bilateral eyes normal inspection ENT: hearing grossly normal Neck: no JVD Respiratory/Chest: no respiratory distress, no accessory muscle use Cardiovascular: no JVD Extremities: normal inspection Neurologic/Psychiatric: alert, normal mood/affect, oriented x 3 Skin: normal color Assessment & Plan Assessment & Plan A/P: Urinary retention AFVSS. Will plan to leave puente catheter in place for now. Outpatient trial of void early next week. Will arrange. Continue Flomax indefinitely for now. Will also plan for outpatient cysto for further evaluation of HARRSI. Pt Ok for d/c home from [facility]. Thanks for the consult. No further management at this time. Thanks for allowing us to participate in this pt's care.
[2017-09-08 10:49] VITALS: BP 134/72; PULSE 64; TEMP 36.4; O2SAT 95
[2017-09-08] MEDS ORDERED: FLM4 PO (10:50)
[2017-09-08] MEDS ORDERED: LVQ750 PO (10:50)
[2017-09-08] MEDS ORDERED: TMF75 PO (10:50)
--- NOTE | 2017-09-08 11:05 | Discharge Instructions ---
Discharge Instructions Date of Service Sep 08, 2017. Admission Reason for Admission: Flu-like illness Discharge Discharge Diagnosis / Problem: Flu-like illness, pneumonia Discharge Goals Goal(s): Improve disease control, Diagnostic testing, Therapeutic intervention Activity Recommendations Activity Limitations: as noted below Exercise/Sports Limitations: gradually increase as tolerated Shower/Bathe: no limitations Driving or Machine Use: no limitations . Instructions / Follow-Up Instructions / Follow-Up You were admitted with flu-like symptoms and a suspected pneumonia. You were treated with Tamiflu and antibiotics. You had issues with urinary retention and had a Whitman catheter placed. This should remain in place until you see the Urologist in their office in 1 week. You were started on a medication to shrink your prostate called Flomax-sometimes this medication can make you lightheaded if you sit or stand up too quickly. Please wait at least a minute after standing from a seated position before you begin walking until you see how you respond to this medication. It is safe for you to drive. Please follow up with your PCP within 1 week. Current Hospital Diet Patient's current hospital diet: Regular Diet Discharge Diet Recommended Diet: Regular Diet Procedures Procedures Performed: CT Head Chest xrays Repeat CT head CT Chest/abdomen/pelvis Pending Studies Studies pending at discharge: no Medical Emergencies . Who to Call and When: Medical Emergencies: If at any time you feel your situation is an emergency, please call 911 immediately. . Non-Emergent Contact Non-Emergency issues call your: Primary Care Provider Call Non-Emergent contact if: temperature is above 100.5, your pain is not controlled, your pain is worsening, your pain is unusual for you, your pain is concerning you, you have any medication questions . . "Provider Documentation" section prepared by Maritza Harding. .
[2017-09-08] MEDS ORDERED: NURSING VERBAL MED ORDER ONE (11:15)
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
[2017-09-08] MEDS ORDERED: POLYETHYLENE (MIRALAX) 17 GM PACK PO SCH (11:30)
== END 2017-09-08 13:40 | disposition home or self-care (01) | DRG 871 ==
LOC: C.EDB 18:44 → C.2T 22:49 → ENRESERV 23:40 → C.2T 09-05 12:11 → ENRESERV 09-06 10:42 → C.MS2W 09-06 12:43
PROVIDERS: ADMIT Family Medicine; ATTEND Family Medicine
DX: A41.9 Sepsis, unspecified organism (principal); J11.00 Influenza due to unidentified influenza virus with unspecified type of pneumonia; J18.9 Pneumonia, unspecified organism; I48.0 Paroxysmal atrial fibrillation; Z88.8 Allergy status to other drugs, medicaments and biological substances; I24.8 Other forms of acute ischemic heart disease; I50.32 Chronic diastolic (congestive) heart failure; Z88.0 Allergy status to penicillin; I25.2 Old myocardial infarction; K21.9 Gastro-esophageal reflux disease without esophagitis; R33.9 Retention of urine, unspecified; E78.5 Hyperlipidemia, unspecified; F32.9 Major depressive disorder, single episode, unspecified; I45.10 Unspecified right bundle-branch block; N40.1 Benign prostatic hyperplasia with lower urinary tract symptoms; Z95.818 Presence of other cardiac implants and grafts; I25.10 Atherosclerotic heart disease of native coronary artery without angina pectoris; R51 Headache; N41.9 Inflammatory disease of prostate, unspecified; N32.0 Bladder-neck obstruction

== ENCOUNTER 2024-10-11 23:35 | Inpatient (IN) ==
--- NOTE | 2024-10-11 23:49 | Emergency Department Note ---
Impression & Plan Atrial fibrillation with rapid ventricular response, Elevated troponin I level, Left-sided chest pain ED Provider Note Name: RONNY JOHNSON Age: 83 Sex: Male Arrives Via: Ambulance Informant: Patient, Family, EMS ED Provider: Kayden Rosenberg MD Chief Complaint: Chest Pain Impression: As Per Impressions Above Medical Decision Makin-year-old gentleman arrives for evaluation of acute onset of chest pain. Patient with onset around 9 PM. Left-sided crushing. EMS had been called found to be atrial fib RVR. Given Cardizem a total of 20 mg IV along with IV fentanyl. This resulted in resolution of pain and patient feeling much improved. On arrival patient with normal sinus rhythm some mild ectopy. He is in no distress and he looks well. EKG is without acute ischemia. Laboratory workup obtained did show some mild elevation of troponin. I am pretty concerned that this may worsen and thus I have discussed with the hospitalist and plan is to get repeat troponin and they will further determine next steps. Patient does have a fair amount of congestion on chest x-ray my suspicion is this is secondary to tachyarrhythmia. Patient is breathing comfortably no distress on room air. Hospitalist evaluated and will bring in for further management. Given resolution of symptoms and no hypoxia I suspect this is not dissection or PE. Would hold off on CT angiography at this time. Triage/Nursing Notes reviewed by Me External Chart Review by me: I reviewed the patient's past medical history through discharge summary on 09/08/2017 Differential:Cardiac ischemia, aortic dissection, pulmonary embolism, pneumothorax, pneumonia, pericarditis, myocarditis, esophageal rupture, GERD, cholecystitis, pancreatitis, musculoskeletal, as well as other pathologies. Vital Signs: reviewed and remarkable for bradycardia Labs:ED labs Reviewed by me and remarkable for mildly elevated troponin Imaging:X ray results are stated below per my interpretation: Chest: 1 view: Diffuse congestion EKG:As per my interpretation. Indication. Chest pain. Sinus at 71 bpm QTc of 489. There is ectopy and a bifascicular block. There are lateral ST depressions. Morphology changes and T wave inversions are new from 09/08/2017. Cardiac/Tele Monitoring: Cardiac Monitoring: An Order was placed for continuous cardiac monitoring. The monitor shows a rate of 60 with a normal sinus rhythm. Consults:Discussed with [facility] hospitalist who will bring in for further management. Plan: Disposition:Hospitalization. Condition: Good History of Present Illness: 83-year-old male arrives for evaluation of chest pain. Patient developed sudden onset chest pain around 9 PM. Left-sided and crushing. Associated with some mild dyspnea. [place] lightheaded and felt like he might pass out. Denies any nausea, vomiting, fevers, chills, actual syncope, headache, neck pain, abdominal pain, leg swelling, calf pain or other concerning signs or symptoms. He has had no recent urinary symptoms. Patient family called 911 who arrived. Patient was noted to be in a fib RVR with a heart rate in the 140s.. He was given Cardizem 15 mg, 5 mg by EMS as well as 50 mcg of IV fentanyl. This resulted in resolution of chest pain. On arrival to ER heart rate had dropped to the 60s and he was feeling much better. Patient denies a known history of A-fib that he recalls at least. He is not on any blood thinners. He he does take aspirin and metoprolol. They report he does not take diltiazem or other rate control medications. He does not take Eliquis, Coumadin, Xarelto per patient. Per patient he has had a previous heart attack. Past Medical History: Per [facility] chart patient has A-fib, hypertension, GERD, CAD, BPH. Per patient he also has a history of CAD Home Medications: Metoprolol, aspirin, multiple other medications Allergies: Patient notes history of IV dye allergy. Also noted amoxicillin, cortisone, iodine, penicillin, lorazepam Vitals:Blood Pressure: 160/85, Pulse 67, RR 16, T 36.4C, O2 96% on 2L NC Physical Exam: GENERAL: Patient is chronically unwell appearing and in minimal distress. RESPIRATORY: No dyspnea. Clear to auscultation and equal bilaterally. CARDIOVASCULAR: Regular rate and rhythm.No murmur appreciated. GASTROINTESTINAL: Abdomen soft, non-tender, no peritonitis. EXTREMITIES: Normal motion all extremities, no cyanosis, no edema. NEUROLOGIC: Alert and oriented. No focal neurologic deficits appreciated SKIN: No rash, no jaundice, no diaphoresis. PSYCH: Appropriate GCS: 15 ED Course: Times/Reassessments: Patient breathing comfortably no distress and is agreeable to hospitalization. Kayden Rosenberg MD Past Med/Surg History Problem List (Updated 10/12/24 @ 07:38 by Kayden Rosenberg MD) Left-sided chest pain (Acute) Elevated troponin I level (Acute) Atrial fibrillation with rapid ventricular response (Acute) Acute on chronic congestive heart failure Trochanteric bursitis, right hip Trochanteric bursitis of left hip Benign prostatic hyperplasia with urinary obstruction (Acute) Incomplete bladder emptying (Acute) Nephrolithiasis (Acute) Dyslipidemia (Chronic) Hypertension (Chronic) GERD (gastroesophageal reflux disease) (Chronic) CAD (coronary artery disease) (Chronic) BPH (benign prostatic hyperplasia) (Chronic) A-fib (Chronic) Surgical History History of elbow surgery History of cervical spinal arthrodesis History of cholecystectomy Family History Mother Cardiac disorder Father Cardiac disorder Social History Smoking Status: Former smoker Second Hand Exposure: No; Do You Dip or Chew Tobacco: No; Hx Alcohol Use: No Hx Substance Use: No Preferred Language: Swedish Communication Ability: Effective Security Administrator Required: No Beliefs That Will Affect Care: None Current Living Situation: Spouse Other Information That Helps Us Care for You: No Feels Safe at Home: Yes Safety Concerns: Feels Safe At This Time Assistive Devices: Cane, Glasses and Walker Allergies Allergies Allergy/AdvReac Type Severity Reaction Status Date / Time Iodinated Contrast Media Allergy Severe HIVES Verified 08/22/19 12:45 amoxicillin Allergy Intermediate HIVES Verified 08/22/19 12:45 bee venom protein (honey bee) Allergy Intermediate HIVES Verified 08/22/19 12:45 cortisone Allergy Intermediate SKIN Verified 08/22/19 12:45 IRRITATION iodine Allergy Intermediate HIVES Verified 08/22/19 12:45 Penicillins Allergy Intermediate HIVES Verified 08/22/19 12:45 lorazepam AdvReac Mild MAKES HIM Verified 08/22/19 12:45 GOOFY Home Meds Home Medications Medication Instructions Recorded Confirmed aspirin 81 mg tablet,delayed 81 mg PO HS 01/04/19 10/12/24 release amitriptyline 100 mg tablet 100 mg PO HS 10/12/24 10/12/24 finasteride 5 mg tablet 5 mg PO DAILY 10/12/24 10/12/24 furosemide 40 mg tablet 40 mg PO QAM 10/12/24 10/12/24 hydrocodone 5 mg-acetaminophen 325 1 tab PO Q12 10/12/24 10/12/24 mg tablet lansoprazole 30 mg capsule,delayed 30 mg PO QA 10/12/24 10/12/24 release metformin 500 mg tablet 500 mg PO BID 10/12/24 10/12/24 metoprolol succinate 25 mg 25 mg PO QA 10/12/24 10/12/24 tablet,extended release 24 hr potassium chloride 10 mEq 10 meq PO BID 10/12/24 10/12/24 capsule,extended release rosuvastatin 10 mg tablet 10 mg PO QAM 10/12/24 10/12/24 Results & Data (ED) Vital Signs Vital Signs - 24 hr 10/11/24 23:39 10/11/24 23:39 10/11/24 23:39 Temperature 36.9 C Temperature Source Oral Pulse Rate 67 68 Pulse Rate [Apical] Pulse Rate from SpO2 Sensor Pulse Rhythm [Apical] Respiratory Rate 20 Respiratory Effort / Characteristics Non-Labored Spontaneous Respiratory Depth Normal Respiratory Pattern Regular Blood Pressure 163/105 H Blood Pressure [Right Arm] Blood Pressure Mean 124 Blood Pressure Mean [Right Arm] Blood Pressure Position Semi-fowlers Blood Pressure Position [Right Arm] Pulse Oximetry 94 94 Oxygen Delivery Method Room Air Room Air Sepsis Recent Fever Within 48 Hours No Sepsis New/Unexplained Change in Mental Status N/A Sepsis Action Taken by Nursing No Action Required 10/11/24 23:51 10/12/24 00:09 10/12/24 00:12 Temperature Temperature Source Pulse Rate 67 95 H 70 Pulse Rate [Apical] Pulse Rate from SpO2 Sensor 63 70 70 Pulse Rhythm [Apical] Respiratory Rate 23 22 Respiratory Effort / Characteristics Respiratory Depth Respiratory Pattern Blood Pressure Blood Pressure [Right Arm] Blood Pressure Mean Blood Pressure Mean [Right Arm] Blood Pressure Position Blood Pressure Position [Right Arm] Pulse Oximetry 91 94 94 Oxygen Delivery Method Sepsis Recent Fever Within 48 Hours Sepsis New/Unexplained Change in Mental Status Sepsis Action Taken by Nursing 10/12/24 00:21 10/12/24 00:33 10/12/24 00:48 Temperature Temperature Source Pulse Rate 68 86 72 Pulse Rate [Apical] Pulse Rate from SpO2 Sensor 69 71 69 Pulse Rhythm [Apical] Respiratory Rate 20 24 18 Respiratory Effort / Characteristics Respiratory Depth Respiratory Pattern Blood Pressure Blood Pressure [Right Arm] Blood Pressure Mean Blood Pressure Mean [Right Arm] Blood Pressure Position Blood Pressure Position [Right Arm] Pulse Oximetry 94 93 94 Oxygen Delivery Method Sepsis Recent Fever Within 48 Hours Sepsis New/Unexplained Change in Mental Status Sepsis Action Taken by Nursing 10/12/24 00:54 10/12/24 01:00 10/12/24 01:06 Temperature Temperature Source Pulse Rate 72 71 Pulse Rate [Apical] Pulse Rate from SpO2 Sensor 72 66 Pulse Rhythm [Apical] Respiratory Rate 21 Respiratory Effort / Characteristics Respiratory Depth Respiratory Pattern Blood Pressure 131/72 Blood Pressure [Right Arm] Blood Pressure Mean 112 Blood Pressure Mean [Right Arm] Blood Pressure Position Blood Pressure Position [Right Arm] Pulse Oximetry 96 95 Oxygen Delivery Method Sepsis Recent Fever Within 48 Hours Sepsis New/Unexplained Change in Mental Status Sepsis Action Taken by Nursing 10/12/24 01:06 10/12/24 01:12 10/12/24 01:17 Temperature Temperature Source Pulse Rate 69 67 Pulse Rate [Apical] 70 Pulse Rate from SpO2 Sensor 69 67 Pulse Rhythm [Apical] Regular Respiratory Rate 24 16 Respiratory Effort / Characteristics Non-Labored Spontaneous Respiratory Depth Normal Respiratory Pattern Regular Blood Pressure Blood Pressure [Right Arm] 131/72 Blood Pressure Mean Blood Pressure Mean [Right Arm] 91 Blood Pressure Position Blood Pressure Position [Right Arm] Semi-fowlers Pulse Oximetry 96 96 96 Oxygen Delivery Method Room Air Sepsis Recent Fever Within 48 Hours Sepsis New/Unexplained Change in Mental Status Sepsis Action Taken by Nursing 10/12/24 01:39 10/12/24 01:48 Temperature Temperature Source Pulse Rate 67 68 Pulse Rate [Apical] Pulse Rate from SpO2 Sensor 63 67 Pulse Rhythm [Apical] Respiratory Rate Respiratory Effort / Characteristics Respiratory Depth Respiratory Pattern Blood Pressure Blood Pressure [Right Arm] Blood Pressure Mean Blood Pressure Mean [Right Arm] Blood Pressure Position Blood Pressure Position [Right Arm] Pulse Oximetry 95 96 Oxygen Delivery Method Sepsis Recent Fever Within 48 Hours Sepsis New/Unexplained Change in Mental Status Sepsis Action Taken by Nursing Laboratory Data 10/11/24 23:44 10/11/24 23:44 Lab Results 10/11/24 10/12/24 Range/Units 23:44 01:48 WBC 12.53 H (4.8-10.8) K/ul RBC 5.35 (4.70-6.10) M/uL Hgb 16.1 (14.0-18.0) g/dl Hct 46.8 (42.0-52.0) % MCV 87.5 (80.0-100.0) fL MCH 30.1 (25.0-34.0) pg MCHC 34.4 (32.0-36.0) g/dL RDW Std Deviation 41.6 (36.4-46.3) fL RDW Coeff of Tory 13.2 (11.5-14.5) % Plt Count 162 (130-400) K/uL MPV 10.4 (9.4-12.4) fL Immature Gran % (Auto) 0.5 % Neut % (Auto) 66.1 % Lymph % (Auto) 24.6 % [place] % (Auto) 8.3 % Eos % (Auto) 0.4 % Baso % (Auto) 0.1 % Neut # (Auto) 8.29 H (1.40-6.50) K/uL Lymph # (Auto) 3.08 (1.20-3.40) K/uL [place] # (Auto) 1.04 H (0.11-0.59) K/uL Eos # (Auto) 0.05 (0.00-0.50) K/uL Baso # (Auto) 0.01 (0.00-0.20) K/uL Immature Gran # (Auto) 0.06 (0.01-0.20) K/uL PT 10.7 (9.0-12.0) Seconds INR 1.0 (0.9-1.1) APTT 22 (21-31) Seconds PTT Ratio 0.8 Sodium 140 (136-145) mmol/L Potassium 4.1 (3.5-5.1) mmol/L Chloride 105 (98-107) mmol/L Carbon Dioxide 27 (21-32) mmol/L Anion Gap 8 (3-11) BUN 30 H (6-23) mg/dl Creatinine 1.01 (0.6-1.4) mg/dl Est Cr Clr Drug Dosing 65.2 ml/min eGFR 72.88 BUN/Creatinine Ratio 29.7 H (10-20) Glucose 169 H (70-99(Fasting)) mg/dl Calcium 8.8 (8.6-10.3) mg/dl Magnesium 1.9 (1.7-2.4) mg/dl Total Bilirubin 0.6 (0.2-1.0) mg/dl AST 20 (13-39) U/L ALT 29 (7-52) U/L Alkaline Phosphatase 69 (34-104) U/L Troponin I High Sens 51.1 H* 1021.9 H* D (0-20) pg/ml Total Protein 6.2 (6.0-8.3) gm/dl Albumin 3.8 (3.4-5.0) gm/dl Globulin 2.4 L (2.5-4.0) gm/dl Albumin/Globulin Ratio 1.6 (0.9-2) Lipase 16 (11-82) U/L TSH 2.681 (0.300-4.500) uIu/ml Administered Medications Heparin Sodium/Dextrose (Heparin 45764 Unit/500 Ml D5w) 25,000 units in 500 mls @ 20 mls/hr IV .Q24H [facility]; Protocol Stop: 11/11/24 02:14 Last Admin: 10/12/24 02:24 Dose: 1,000 units/hr, 20 mls/hr Documented By: DEREK Co-signed By: KONG Insulin Aspart (Insulin Aspart Per Unit Charge) 0 units SC Q6 [facility] Stop: 11/11/24 05:59 Last Admin: 10/12/24 06:13 Dose: 1 units Documented By: DEREK Co-signed By: CHELE Discontinued Medications Heparin Sodium (Porcine) (Heparin Sod (Porcine) 1000 Unit/Ml) 4,000 units IV NOW ONE Stop: 10/12/24 02:31 Last Admin: 10/12/24 02:24 Dose: 4,000 units Documented By: DEREK Co-signed By: KONG Heparin Sodium/Dextrose (Heparin Iv Adult Wt-Based Low-Dose W/ Initial Bolus Protocol) 1 each IV NOW STA; Protocol Stop: 10/12/24 01:56 Last Admin: 10/12/24 02:21 Dose: Not Given Documented By: DEREK Magnesium Sulfate/Dextrose (Magnesium Sulfate / D5w) 1 gm in 100 mls @ 100 mls/hr IV NOW STA Stop: 10/12/24 02:28 Last Infusion: 10/12/24 03:10 Dose: Infused Documented By: Admin: 10/12/24 02:10 Dose: 100 mls/hr Documented By: DEREK Nitroglycerin (Nitroglycerin 2% Ointment 30gm Tube) 1 inch EXT ONE STA Stop: 10/12/24 02:56 Last Admin: 10/12/24 03:58 Dose: 1 inch Documented By: DEREK Imaging Data Radiologist's Impression: Chest X-Ray 10/11/24 23:44 EXAM: XR chest 1V portable CLINICAL HISTORY: Chest pain, nonspecific. TECHNIQUE: An X-ray image of the chest is obtained in AP projection. COMPARISON: 09/05/2017. FINDINGS: Pulmonary Parenchyma: Mild bilateral hilar bronchovascular congestion with increased bilateral perihilar interstitial markings. Haziness/atelectasis is seen in the left lower lobe. Obliterated left costophrenic angle, likely left pleural effusion. No pulmonary nodules are identified. Elevated right diaphragmatic copula. Unchanged Heart and Mediastinum: The cardiomediastinal silhouette is mildly enlarged. No mediastinal widening or masses. No hilar or mediastinal lymphadenopathy. Bony Thorax: Bony thorax appears intact without fractures or deformities. Mild degenerative changes are seen at the bilateral acromioclavicular joints. Soft Tissues: Soft tissues overlying the chest wall are unremarkable. IMPRESSION: 1. Cardiomegaly with bilateral hilar bronchovascular congestion and prominence of perihilar interstitial markings, and haziness/atelectasis in the left lower lobe. The constellation of findings is concerning for possible early CHF/pulmonary edema. Clinical correlation and follow-up is recommended. Interval new findings. 2. Small left pleural effusion, interval increase. Electronically signed by Ameya Vincent 10-12-2024 02:30 AM Discharge Plan Visit Data Chief Complaint: Chest Pain Stated Complaint: Chest Pain, Arrhythmia, Tachycardia ED Provider: Kayden Rosenberg Discharge Problem: Atrial fibrillation with rapid ventricular response, Elevated troponin I level, Left-sided chest pain Patient Disposition: Admitted As Inpatient Condition: Good Discharge Instructions Interventions: ED Discharge Assessment Last Done: 10/12/24 03:18
[2024-10-12 00:07] LABS: Basophils # (auto) 0.01 K/uL (0.00-0.20); Basophils % (auto) 0.1 %; Eosinophils # (auto) 0.05 K/uL (0.00-0.50); Eosinophils % (auto) 0.4 %; Hematocrit (blood only) 46.8 % (42.0-52.0); Hemoglobin 16.1 g/dl (14.0-18.0); Immature Granulocytes # (auto) 0.06 K/uL (0.01-0.20); Immature Granulocytes % (auto) 0.5 %; Lymphocytes # (auto) 3.08 K/uL (1.20-3.40); Lymphocytes % (auto) 24.6 %; Mean Corpuscular Hemoglobin 30.1 pg (25.0-34.0); Mean Corpuscular Hgb Conc 34.4 g/dL (32.0-36.0); Mean Corpuscular Volume 87.5 fL (80.0-100.0); Mean Platelet Volume 10.4 fL (9.4-12.4); Monocytes # (auto) 1.04 K/uL (0.11-0.59); Monocytes % (auto) 8.3 %; Neutrophils # (auto) 8.29 K/uL (1.40-6.50); Neutrophils % (auto) 66.1 %; Platelet Count 162 K/uL (130-400); RDW Coefficient of Variation 13.2 % (11.5-14.5); RDW Standard Deviation 41.6 fL (36.4-46.3); Red Blood Count 5.35 M/uL (4.70-6.10); White Blood Count 12.53 K/ul (4.8-10.8)
[2024-10-12 00:45] LABS: Albumin Globulin Ratio 1.6 (0.9-2); Albumin Level 3.8 gm/dl (3.4-5.0); BUN Creatinine Ratio 29.7 (10-20); Bilirubin,Total 0.6 mg/dl (0.2-1.0); Calcium 8.8 mg/dl (8.6-10.3); Creatinine Clr Calc Pharmacy 65.2 ml/min; Globulin 2.4 gm/dl (2.5-4.0); Magnesium 1.9 mg/dl (1.7-2.4); Potassium 4.1 mmol/L (3.5-5.1); Total Protein 6.2 gm/dl (6.0-8.3)
[2024-10-12 01:02] LABS: Troponin I High Sensitivity 51.1 pg/ml (0-20)
--- NOTE | 2024-10-12 01:40 | History & Physical Report ---
Date of Service October 12, 2024 Assessment & Plan (1) A-fib: (2) BPH (benign prostatic hyperplasia): (3) CAD (coronary artery disease): (4) GERD (gastroesophageal reflux disease): (5) Acute on chronic congestive heart failure: Plan 83 year old male with known CAD presents to the ER with chest pain with a. rib RVR converted to NSR with diltiazem by EMS #Atrial fibrillation with RVR / Chest pain / Coronary artery disease / Murmur / Acute on chronic heart failure with unknown ejection fraction Apparent history of paroxysmal a. fib per note review although family and patient are unaware of this diagnosis and unclear why he is not on systemic anticoagulation Given advanced age and concern for ACS will start anticoagulation with IV heparin low dose with bolus Currently back in NSR therefore no need to start other rate or rhythm control medications at this time On Lasix 40mg PO daily, will switch to 40mg IV daily Suspect rate related given a. fib and felt well prior to this therefore likely to improve now in NSR even without increase in Lasix Strict I&Os, daily weights ASA 324mg PO given by EMS Suspect HF secondary to a. fib RVR but given significant history of coronary artery disease and x4 stents some concern for ACS If second troponin significantly elevated will start nitro paste for his ongoing chest pain Trend troponin TTE in AM NPO, consult cardiology for possible cardiac cath pending repeat troponins and TTE #Type 2 diabetes mellitus HbA1C with AM labs Hold metformin Utilize Novolog for correction factor only #GERD Continue lansoprazole, low suspicion chest pain secondary to this #Obstructive sleep apnea CPAP HS VTE Prophylaxis - IV heparin Diet - NPO Disposition - admit to PCU Admission and Anticipated Discharge Date Admission Date: October 12, 2024 History of Present Illness Chief Complaint: Chest pain Primary Care Provider: DO Tra García Raj is an 83 year old male who presents to the ER with chest pain. Started suddenly at 9pm and rapidly became worse to severity 10/10 with radiation down his left arm (no jaw or neck pain). No worse on inspiration or palpation. No acid taste. Associated diaphoresis, now resolved. No shortness of breath, palpitations, presyncope or syncope. No recent weight gain or leg swelling. He reports feeling well prior to 9pm without any recent exertional chest pain. He has some exertional shortness of breath. Cold symptoms 2 weeks ago lasted for 2 days but nothing more recent. EKG from EMS showed atrial fibrillation and he was treated with aspirin and intravenous diltiazem and converted to normal sinus rhythm. He has been out of power at his house the last few nights therefore he has not been using his usual CPAP. He took all his usual medications. His usual cardi ologist is Dr Castro ([place]). He nor his family don't ever think he has ever had atrial fibrillation or flutter although from chart review he has paroxysmal but unclear why he is not on anticoagulation. Per patient recollection his last cardiac catheterization was 4-5 years ago and he has had a total of 4 cardiac stents in the past. Allergies Allergy/AdvReac Type Severity Reaction Status Date / Time Iodinated Contrast Media Allergy Severe HIVES Verified 08/22/19 12:45 amoxicillin Allergy Intermediate HIVES Verified 08/22/19 12:45 bee venom protein (honey bee) Allergy Intermediate HIVES Verified 08/22/19 12:45 cortisone Allergy Intermediate SKIN Verified 08/22/19 12:45 IRRITATION iodine Allergy Intermediate HIVES Verified 08/22/19 12:45 Penicillins Allergy Intermediate HIVES Verified 08/22/19 12:45 lorazepam AdvReac Mild MAKES HIM Verified 08/22/19 12:45 GOOFY Home Medications Medication Instructions Recorded Confirmed Type aspirin 81 mg tablet,delayed 81 mg PO HS 01/04/19 10/12/24 History release amitriptyline 100 mg tablet 100 mg PO HS 10/12/24 10/12/24 History finasteride 5 mg tablet 5 mg PO DAILY 10/12/24 10/12/24 History furosemide 40 mg tablet 40 mg PO QAM 10/12/24 10/12/24 History hydrocodone 5 mg-acetaminophen 325 1 tab PO Q12 10/12/24 10/12/24 History mg tablet lansoprazole 30 mg capsule,delayed 30 mg PO QAM 10/12/24 10/12/24 History release metformin 500 mg tablet 500 mg PO BID 10/12/24 10/12/24 History metoprolol succinate 25 mg 25 mg PO QAM 10/12/24 10/12/24 History tablet,extended release 24 hr potassium chloride 10 mEq 10 meq PO BID 10/12/24 10/12/24 History capsule,extended release rosuvastatin 10 mg tablet 10 mg PO QAM 10/12/24 10/12/24 History Past Med/Surg History Problem List (Updated 10/12/24 @ 04:19 by Guerrero Marques MD) Acute on chronic congestive heart failure Trochanteric bursitis, right hip Trochanteric bursitis of left hip Benign prostatic hyperplasia with urinary obstruction (Acute) Incomplete bladder emptying (Acute) Nephrolithiasis (Acute) Dyslipidemia (Chronic) Hypertension (Chronic) GERD (gastroesophageal reflux disease) (Chronic) CAD (coronary artery disease) (Chronic) BPH (benign prostatic hyperplasia) (Chronic) A-fib (Chronic) Surgical History History of elbow surgery History of cervical spinal arthrodesis History of cholecystectomy Family History Mother Cardiac disorder Father Cardiac disorder Social History Smoking Status: Former smoker Preferred Language: German Feels Safe at Home: Yes Review of Systems Review of Systems: All systems reviewed & are unremarkable except as noted in HPI & below Physical Exam Constitutional: WD/WN, vitals as above ENMT: external ear and nose normal, oropharynx normal Respiratory: normal respiratory effort; no respiratory distress Auscultation: + crackles (bibasal); breath sounds present, no diminished lung sounds and no wheezes Cardiovascular: Rate/Rhythm: regular rate and regular rhythm Heart Sounds: + murmur (ZAIN 3/6 LUSB) Extremities: normal capillary refill and + pedal edema (2+ b/l equal) Gastrointestinal (Abdomen): normal bowel sounds, soft, nontender, no hepatosplenomegaly Musculoskeletal: no cyanosis or clubbing, extremities motor strength 5/5 Skin: no rashes, warm and dry Neurologic: moves all extremities and awake; not confused Psychiatric: A+Ox3, euthymic affect Results & Data Results & Data Vital Signs (Past 12 Hours) Vital Signs Temp Pulse Pulse Resp BP BP Pulse Ox 10/12/24 01:17 70 16 131/72 96 10/11/24 23:39 68 10/11/24 23:39 94 10/11/24 23:39 36.9 C 67 20 163/105 H 94 O2 Del Method 10/12/24 01:17 Room Air 10/11/24 23:39 05/01/25 23:39 Room Air 10/11/24 23:39 Room Air Laboratory Results Abnormal lab results 10/11/24 Range/Units 23:44 WBC 12.53 H (4.8-10.8) K/ul Neut # (Auto) 8.29 H (1.40-6.50) K/uL [place] # (Auto) 1.04 H (0.11-0.59) K/uL BUN 30 H (6-23) mg/dl BUN/Creatinine Ratio 29.7 H (10-20) Glucose 169 H (70-99(Fasting)) mg/dl Troponin I High Sens 51.1 H* (0-20) pg/ml Globulin 2.4 L (2.5-4.0) gm/dl Diagnostic Findings XR chest 1V portable CLINICAL HISTORY: Chest pain, nonspecific. TECHNIQUE: An X-ray image of the chest is obtained in AP projection. COMPARISON: 09/05/2017. FINDINGS: Pulmonary Parenchyma: Mild bilateral hilar bronchovascular congestion with increased bilateral perihilar interstitial markings. Haziness/atelectasis is seen in the left lower lobe. Obliterated left costophrenic angle, likely left pleural effusion. No pulmonary nodules are identified. Elevated right diaphragmatic copula. Unchanged Heart and Mediastinum: The cardiomediastinal silhouette is mildly enlarged. No mediastinal widening or masses. No hilar or mediastinal lymphadenopathy. Bony Thorax: Bony thorax appears intact without fractures or deformities. Mild degenerative changes are seen at the bilateral acromioclavicular joints. Soft Tissues: Soft tissues overlying the chest wall are unremarkable. IMPRESSION: 1. Cardiomegaly with bilateral hilar bronchovascular congestion and prominence of perihilar interstitial markings, and haziness/atelectasis in the left lower lobe. The constellation of findings is concerning for possible early CHF/pulmonary edema. Clinical correlation and follow-up is recommended. Interval new findings. 2. Small left pleural effusion, interval increase. Medications Administered ER Medications Given: None ECG Rate (beats per minute): 71 Rhythm: normal sinus Findings: + LPFB, + PVC and + RBBB Comparison ECG Date: from (September 05, 2017) Change: the following changes noted (PVCs are new) Code Status & VTE Plan Code Status Full VTE Prophylaxis Plan VTE Prophylaxis will be ordered: Yes PG Care Time/CCT Total # of Minutes Spent Total Time Spent with Patient: Total time spent is greater than 50% in coordination of care (as documented) at patient's floor/unit and/or counseling patient: Coding Level of Care Code 55886 INT INP/OBS CARE 3/75MIN Diagnoses A-fib I48.91 BPH (benign prostatic hyperplasia) N40.0 CAD (coronary artery disease) I25.10 GERD (gastroesophageal reflux disease) K21.9 Acute on chronic congestive heart failure I50.9
[2024-10-12 02:10] LABS: Partial Thromboplastin Ratio 0.8; Partial Thromboplastin Time 22 Seconds (21-31); Prothrombin Time 10.7 Seconds (9.0-12.0)
[2024-10-12] MEDS: MAGNESIUM SULFATE / D5W 1 GM/100 ML BAG IV STA (02:10)
[2024-10-12] MEDS: Heparin IV Adult Wt-Based Low-Dose w/ INITIAL Bolus Protocol IV STA (02:21)
[2024-10-12] MEDS: HEPARIN SOD (PORCINE) 1000 UNIT/ML IV ONE (02:24)
[2024-10-12] MEDS: HEPARIN 25000 UNIT/500 ML D5W 25,000 UNITS/500 ML BAG IV SCH (02:24)
--- NOTE | 2024-10-12 02:31 | XRay Report ---
EXAM: XR chest 1V portable CLINICAL HISTORY: Chest pain, nonspecific. TECHNIQUE: An X-ray image of the chest is obtained in AP projection. COMPARISON: 09/05/2017. FINDINGS: Pulmonary Parenchyma: Mild bilateral hilar bronchovascular congestion with increased bilateral perihilar interstitial markings. Haziness/atelectasis is seen in the left lower lobe. Obliterated left costophrenic angle, likely left pleural effusion. No pulmonary nodules are identified. Elevated right diaphragmatic copula. Unchanged Heart and Mediastinum: The cardiomediastinal silhouette is mildly enlarged. No mediastinal widening or masses. No hilar or mediastinal lymphadenopathy. Bony Thorax: Bony thorax appears intact without fractures or deformities. Mild degenerative changes are seen at the bilateral acromioclavicular joints. Soft Tissues: Soft tissues overlying the chest wall are unremarkable. IMPRESSION: 1. Cardiomegaly with bilateral hilar bronchovascular congestion and prominence of perihilar interstitial markings, and haziness/atelectasis in the left lower lobe. The constellation of findings is concerning for possible early CHF/pulmonary edema. Clinical correlation and follow-up is recommended. Interval new findings. 2. Small left pleural effusion, interval increase. Electronically signed by Ameya Vincent 10-12-2024 02:30 AM
[2024-10-12 02:45] LABS: Thyroid Stimulating Hormone 2.681 uIu/ml (0.300-4.500)
[2024-10-12] MEDS ORDERED: GLUCOSE 40% GEL 15 GM TUBE PO PRN (03:18)
[2024-10-12] MEDS ORDERED: GLUCAGON FOR INJ 1 MG VIAL SQ PRN (03:18)
[2024-10-12] MEDS ORDERED: CARBOHYDRATES FOR HYPOGLYCEMIA PO PRN (03:18)
[2024-10-12] MEDS ORDERED: ACETAMINOPHEN 325 MG TAB PO PRN (03:18)
[2024-10-12] MEDS ORDERED: MELATONIN 3 MG TAB PO PRN (03:18)
[2024-10-12] MEDS ORDERED: GLUCOSE 10 TAB/TUBE PO PRN (03:18)
[2024-10-12] MEDS ORDERED: DEXTROSE 50% 50 ML SYRINGE IV PRN (03:18)
[2024-10-12] MEDS ORDERED: HYDROCODONE/ACETAMOPHEN 5/325MG TAB PO PRN (03:18)
[2024-10-12] MEDS: NITROGLYCERIN 2% OINTMENT 30GM TUBE EXT STA (03:58)
[2024-10-12] MEDS: INSULIN ASPART PER UNIT CHARGE SC SCH ×2 (06:13→21:34)
[2024-10-12] MEDS: FUROSEMIDE 40 MG/4 ML VIAL IV SCH (08:04)
[2024-10-12] MEDS: POTASSIUM CHLORIDE 10 MEQ TABCR PO SCH (08:04)
[2024-10-12] MEDS: FINASTERIDE 5 MG TAB PO SCH (08:04)
[2024-10-12] MEDS: NITROGLYCERIN 2% OINTMENT 30GM TUBE EXT SCH (08:04)
[2024-10-12] MEDS: ROSUVASTATIN CALCIUM 10 MG TAB PO SCH (08:05)
[2024-10-12] MEDS: PANTOprazole 40 MG TAB PO SCH (08:05)
[2024-10-12] MEDS: METOPROLOL SUCC 25MG EXT REL TAB PO SCH (08:05)
--- NOTE | 2024-10-12 09:16 | Cardiology Consultation ---
Date of Consultation October 12, 2024 Assessment & Plan (1) Non-ST elevated myocardial infarction: 2. CAD-- PCIx4 (RCA, PDA) 3. Paroxysmal atrial fibrillation 4. Chest pain 5. CHF Patient admitted last night after an episode of sudden onset left sided chest pain. Chest pain lasted about 1 hour total. He has been chest pain free since and has no other complaints. Troponin trended up (50 to 1021.9), ECG with ST abnormality, no ST elevation. Initial ECG with EMG showed atrial fibrillation with RVR, listed in chart as having paroxysmal afib but unclear if this is a new diagnosis as patient denies ever being told he has afib and is not on chronic anticoagulation. He has remained in sinus rhythm. During exam this morning he is comfortable and reports feeling well. He does have evidence of mild hypervolemia. Echo with normal LV function, mild inferolateral hypokinesis. RV dilated with severe dysfunction which appears new compared to prior. Recommend the following: --Recommend CTA of chest to rule out PE --Continue anticoagulation, transition to DOAC prior to discharge --Recommend medical therapy for his CAD if he remains chest pain free, monitor overnight --If recurrent symptoms low threshold for cardiac cath --Continue current Lasix Addendum: Troponin now 3093, keep NPO, likely cardiac catheterization this afternoon. Will hold off on CTA for now. Supervising Physician Co-Signing Physician Notes Patient seen and examined. Plan of care discussed and formulated with YADIEL Alvarez. Briefly, Mr. Anthony is a very pleasant 83-year-old man with known CAD post remote RCA stents, HFpEF and questionable prior paroxysmal AF seen for ACS. Acute chest pain reminiscent of prior MD beginning yesterday evening. Initially in A- fib with RVR with chronic RBBB and no new ST changes and chest x-ray showing heart failure. HS TropI trended up to 30,000. Responded to diuretics, self converted back to sinus rhythm. Since admission has been chest pain free and hemodynamically electrically stable. Echo showed preserved LV function with inferolateral wall motion abnormality. RV poorly visualized but appeared to be dilated with severe dysfunction. Underwent cardiac cath today which showed multivessel disease including acute on chronic latemid circumflex occlusion with faint collaterals. Circumflex thought to be likely culprit for his symptoms yesterday. As clinically stable today decision made to manage medically. Recommendations: After TR band removed can resume heparin overnight. Tomorrow can discontinue heparin and start on Eliquis for AF (patient concerned about cost, is on Eliquis, please check with case management) Continue aspirin for now. Long-term if on Eliquis aspirin could be discontinued. Increase metoprolol to 50 mg daily Start losartan 25 mg daily tonight. Can discontinue Nitropatch LVEDP normal. Can stop IV Lasix. Resume maintenance Lasix tomorrow assuming renal function stable Continue current statin. If stable overnight potentially home tomorrow with follow-up with Dr. Avery. History of Present Illness Reason for Consultation: Chest pain, NSTEMI Attending Physician: Ambar Navarrete MD History of Present Illness Mr. Anthony is a very pleasant 83 year old man being seen in the emergency department this morning in the setting of chest pain. Cardiac history is remarkable for CAD status post PCIx4 (follows with Dr. Castro in [place]), hypertension, dyslipidemia, sleep apnea on CPAP, paroxysmal atrial fibrillation not on chronic anticoagulation, history of CHF, diabetes. Patient reports he was feeling his usual self until around 9 pm last evening. He was sitting in his chair and suddenly developed significant left sided chest pain. Describe the pain as crushing and sharp. States it felt just like his prior heart attack. He denies associated dyspnea, nausea, vomiting, palpitations, dizziness or syncope. He [facility] and was found to be in afib with RVR, reportedly was given IV Cardizem and fentanyl with improvement in symptoms. Patient states pain resolved shortly after arriving at ED, believes pain lasted about total of 1 hour. He was in sinus rhythm at time of arrival. He denies any recurrent chest discomfort since. States he feels fine. Denies any recent chest discomfort leading up to the event. Initial HSTrop 51, repeat 1021.9. ECG sinus rhythm, RBBB, no ST elevation States he has been under some stress as they have not had any power for the past 4 days. CXR suggestive of pulmonary edema and small left sided pleural effusion, has been given IV Lasix, at home takes 40 mg of Lasix daily. Denies missing any recent medications. Denies any recent dyspnea, orthopnea, PND. States he has chronic mild ankle edema but it has not been any worse than usual. Activity level is limited by balance issues and frequent falls. There is documentation in our records of paroxysmal atrial fibrillation. Patient states he is unaware of this diagnosis, not on chronic anticoagulation. Denies ever experiencing palpitations. I do not have records from Dr. Castro's office. Per records underwent PCI of RCA in 2006, PCIx2 of RCA in 2006 and PCI of PDA Echo 2018 with normal LV function (EF 55-60%) and no regional wall motion abnormalities. Echo reviewed- Normal LV function, mild inferolateral hypokinesis. RV dilated with severe dysfunction. ECGs from EMS reviewed- initial ECG afib with RVR, RBBB. Allergies Allergy/AdvReac Type Severity Reaction Status Date / Time Iodinated Contrast Media Allergy Severe HIVES Verified 08/22/19 12:45 amoxicillin Allergy Intermediate HIVES Verified 08/22/19 12:45 bee venom protein (honey bee) Allergy Intermediate HIVES Verified 08/22/19 12:45 cortisone Allergy Intermediate SKIN Verified 08/22/19 12:45 IRRITATION iodine Allergy Intermediate HIVES Verified 08/22/19 12:45 Penicillins Allergy Intermediate HIVES Verified 08/22/19 12:45 lorazepam AdvReac Mild MAKES HIM Verified 08/22/19 12:45 GOOFY Home Medications Medication Instructions Recorded Confirmed Type aspirin 81 mg tablet,delayed 81 mg PO HS 01/04/19 10/12/24 History release amitriptyline 100 mg tablet 100 mg PO HS 10/12/24 10/12/24 History finasteride 5 mg tablet 5 mg PO DAILY 10/12/24 10/12/24 History furosemide 40 mg tablet 40 mg PO QAM 10/12/24 10/12/24 History hydrocodone 5 mg-acetaminophen 325 1 tab PO Q12 10/12/24 10/12/24 History mg tablet lansoprazole 30 mg capsule,delayed 30 mg PO QAM 10/12/24 10/12/24 History release metformin 500 mg tablet 500 mg PO BID 10/12/24 10/12/24 History metoprolol succinate 25 mg 25 mg PO QAM 10/12/24 10/12/24 History tablet,extended release 24 hr potassium chloride 10 mEq 10 meq PO BID 10/12/24 10/12/24 History capsule,extended release rosuvastatin 10 mg tablet 10 mg PO QAM 10/12/24 10/12/24 History Patient History Surgical History History of elbow surgery History of cervical spinal arthrodesis History of cholecystectomy Family History Mother Cardiac disorder Father Cardiac disorder Social History Smoking Status: Former smoker Second Hand Exposure: No; Do You Dip or Chew Tobacco: No; Hx Alcohol Use: No Hx Substance Use: No Preferred Language: Sammarinese Communication Ability: Effective Register Of Wills Required: No Beliefs That Will Affect Care: None Current Living Situation: Spouse Feels Safe at Home: Yes Assistive Devices: Cane, Glasses and Walker Physical Exam Physical Exam: General: No acute distress, comfortable. HEENT: Head is normal. PERRLA. EOMI. Sclerae anicteric. Ears, nose and throat unremarkable. Mucous membranes moist. Neck: No appreciable JVD. Lungs: Bibasilar crackles, greater on the left Cardiac: Regular rate and rhythm. S1-S2 normal. No appreciable murmur, gallop or rub. Abdomen: Soft and nontender. Bowel sounds normal. Extremities/vascular: Well perfused. Trace edema Skin: numerous ecchymotic lesions on extremities Neurologic: Nonfocal Psychiatric: Affect appropriate. Alert and oriented. Results & Data Vital Signs (Past 12 Hours) Vital Signs Temp Pulse Pulse Resp BP BP Pulse Ox 10/12/24 08:30 54 L 21 10/12/24 08:27 54 L 17 10/12/24 08:18 56 L 17 10/12/24 08:03 180/87 H 10/12/24 08:03 180/87 H 10/12/24 08:00 67 21 10/12/24 07:57 12 10/12/24 07:33 56 L 13 10/12/24 07:05 15 10/12/24 07:00 53 L 16 10/12/24 06:59 56 L 10/12/24 06:54 54 L 16 10/12/24 06:30 54 L 19 10/12/24 06:27 50 L 18 10/12/24 06:18 53 L 16 10/12/24 06:03 56 L 14 10/12/24 05:54 59 L 13 10/12/24 05:48 60 13 10/12/24 05:21 58 L 17 10/12/24 05:09 59 L 15 10/12/24 04:45 54 L 17 10/12/24 04:33 55 L 18 10/12/24 04:25 170/79 H 10/12/24 04:25 170/79 H 10/12/24 04:15 70 16 10/12/24 04:00 142/90 H 10/12/24 04:00 10/12/24 04:00 36.4 C L 62 16 170/79 H 96 10/12/24 03:57 59 L 19 95 10/12/24 03:27 63 17 95 10/12/24 03:18 10/12/24 03:15 61 15 95 10/12/24 03:06 59 L 15 96 10/12/24 03:00 139/74 10/12/24 02:48 60 15 95 10/12/24 02:45 65 16 95 10/12/24 02:36 61 23 95 10/12/24 02:21 63 19 96 10/12/24 02:00 65 20 95 10/12/24 02:00 148/89 H 10/12/24 02:00 148/89 H 10/12/24 01:48 68 96 10/12/24 01:39 67 95 10/12/24 01:17 70 16 131/72 96 10/12/24 01:12 67 96 10/12/24 01:06 69 24 96 10/12/24 01:06 131/72 10/12/24 01:00 71 95 10/12/24 00:54 72 21 96 10/12/24 00:48 72 18 94 10/12/24 00:33 86 24 93 10/12/24 00:21 68 20 94 10/12/24 00:12 70 94 10/12/24 00:09 95 H 22 94 10/11/24 23:51 67 23 91 10/11/24 23:39 68 10/11/24 23:39 94 10/11/24 23:39 36.9 C 67 20 163/105 H 94 Pulse Ox O2 Del Method O2 Del Method 10/12/24 08:30 10/12/24 08:27 10/12/24 08:18 10/12/24 08:03 10/12/24 08:03 10/12/24 08:00 10/12/24 07:57 10/12/24 07:33 10/12/24 07:05 10/12/24 07:00 10/12/24 06:59 10/12/24 06:54 10/12/24 06:30 10/12/24 06:27 10/12/24 06:18 10/12/24 06:03 10/12/24 05:54 10/12/24 05:48 10/12/24 05:21 10/12/24 05:09 10/12/24 04:45 10/12/24 04:33 10/12/24 04:25 10/12/24 04:25 10/12/24 04:15 10/12/24 04:00 10/12/24 04:00 Room Air 10/12/24 04:00 Room Air 10/12/24 03:57 10/12/24 03:27 10/12/24 03:18 95 Room Air 10/12/24 03:15 10/12/24 03:06 10/12/24 03:00 10/12/24 02:48 10/12/24 02:45 10/12/24 02:36 10/12/24 02:21 10/12/24 02:00 10/12/24 02:00 10/12/24 02:00 10/12/24 01:48 10/12/24 01:39 10/12/24 01:17 Room Air 10/12/24 01:12 10/12/24 01:06 10/12/24 01:06 10/12/24 01:00 10/12/24 00:54 10/12/24 00:48 10/12/24 00:33 10/12/24 00:21 10/12/24 00:12 10/12/24 00:09 10/11/24 23:51 10/11/24 23:39 10/11/24 23:39 Room Air 10/11/24 23:39 Room Air Laboratory Results Laboratory Results - last 24 hr 10/11/24 10/12/24 10/12/24 23:44 01:48 06:05 WBC 12.53 H RBC 5.35 Hgb 16.1 Hct 46.8 MCV 87.5 MCH 30.1 MCHC 34.4 RDW Std Deviation 41.6 RDW Coeff of [place] 13.2 Plt Count 162 MPV 10.4 Immature Gran % (Auto) 0.5 Neut % (Auto) 66.1 Lymph % (Auto) 24.6 [place] % (Auto) 8.3 Eos % (Auto) 0.4 Baso % (Auto) 0.1 Neut # (Auto) 8.29 H Lymph # (Auto) 3.08 [place] # (Auto) 1.04 H Eos # (Auto) 0.05 Baso # (Auto) 0.01 Immature Gran # (Auto) 0.06 PT 10.7 INR 1.0 APTT 22 PTT Ratio 0.8 Sodium 140 Potassium 4.1 Chloride 105 Carbon Dioxide 27 Anion Gap 8 BUN 30 H Creatinine 1.01 Est Cr Clr Drug Dosing 65.2 eGFR 72.88 BUN/Creatinine Ratio 29.7 H Glucose 169 H POC Glucose 143 H Calcium 8.8 Magnesium 1.9 Total Bilirubin 0.6 AST 20 ALT 29 Alkaline Phosphatase 69 Troponin I High Sens 51.1 H* 1021.9 H* D Total Protein 6.2 Albumin 3.8 Globulin 2.4 L Albumin/Globulin Ratio 1.6 Lipase 16 TSH 2.681 PG Care Time/CCT Total # of Minutes Spent Total Time Spent with Patient: Total time spent is greater than 50% in coordination of care (as documented) at patient's floor/unit and/or counseling patient: Coding Level of Care Code 09703 ER DEPT VISIT MOD LVL 4 Diagnoses Non-ST elevated myocardial infarction I21.4
--- NOTE | 2024-10-12 10:11 | XRay Report ---
XR chest 2V PA/lateral HISTORY: 83 years-old Male Shortness of breath, chest pain acute shortness of breath COMPARISON: Chest radiograph of same day at 12:30 AM TECHNIQUE: PA and lateral views of the chest FINDINGS: Cardiac silhouette is enlarged. Pulmonary vascular congestion. Mildly improved aeration of the lungs. Small pleural effusions with persistent bibasilar consolidation. Atherosclerosis of the aorta. 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 IMPRESSION: 1. Cardiomegaly with pulmonary vascular congestion and mild improved aeration of the lungs. 2. Small pleural effusions with persistent bibasilar densities, likely atelectatic. ACT 112: Negative or not required by law. The above report was generated using voice recognition software. It may contain grammatical, syntax o r spelling errors. Electronically signed by: Josep Portillo M.D. 10/12/2024 10:09 AM
--- NOTE | 2024-10-12 10:17 | XCELERA ---
[id number] \\[email or web address]\[id number]
[2024-10-12 11:14] LABS: Basophils # (auto) 0.01 K/uL (0.00-0.20); Basophils % (auto) 0.1 %; Eosinophils # (auto) 0.07 K/uL (0.00-0.50); Eosinophils % (auto) 0.7 %; Hematocrit (blood only) 46.6 % (42.0-52.0); Hemoglobin 15.7 g/dl (14.0-18.0); Immature Granulocytes # (auto) 0.08 K/uL (0.01-0.20); Immature Granulocytes % (auto) 0.8 %; Lymphocytes # (auto) 1.92 K/uL (1.20-3.40); Lymphocytes % (auto) 19.9 %; Mean Corpuscular Hemoglobin 30.1 pg (25.0-34.0); Mean Corpuscular Hgb Conc 33.7 g/dL (32.0-36.0); Mean Corpuscular Volume 89.4 fL (80.0-100.0); Mean Platelet Volume 10.6 fL (9.4-12.4); Monocytes # (auto) 0.72 K/uL (0.11-0.59); Monocytes % (auto) 7.4 %; Neutrophils # (auto) 6.87 K/uL (1.40-6.50); Neutrophils % (auto) 71.1 %; Platelet Count 144 K/uL (130-400); RDW Coefficient of Variation 13.2 % (11.5-14.5); RDW Standard Deviation 42.9 fL (36.4-46.3); Red Blood Count 5.21 M/uL (4.70-6.10); White Blood Count 9.67 K/ul (4.8-10.8)
[2024-10-12 11:31] LABS: BUN Creatinine Ratio 27.6 (10-20); Calcium 8.7 mg/dl (8.6-10.3); Chol HDL Ratio 2.3 (0-5); Creatinine Clr Calc Pharmacy 74.2 ml/min; Magnesium 2.2 mg/dl (1.7-2.4)
[2024-10-12 11:34] LABS: ANTI-Xa, UFH(UnfractionatedHep 0.32 IU/ml (0.3-0.7)
[2024-10-12 11:44] LABS: Estimated Average Glucose 146 mg/dl; Hemoglobin A1C 6.7 % (4.5-5.6)
[2024-10-12] MEDS: methylPREDNISolone 125 MG/2 ML VIAL ONE (14:52)
[2024-10-12] MEDS: diphenhydrAMINE 50 MG/ML VIAL ONE ×2 (14:52→18:23)
[2024-10-12] MEDS: FAMOTIDINE 20MG/5ML IV PUSH IV ONE (14:52)
[2024-10-12] MEDS: HEPARIN (PORCINE) 1000 UNIT/ML 10 ML (CATH LAB USE ONLY) ONE (16:38)
[2024-10-12] MEDS: fentaNYL citrate PF 100 MCG/2 ML VIAL ONE ×2 (16:38→18:23)
[2024-10-12] MEDS: OPTIRAY 350 ONE (16:39)
[2024-10-12] MEDS: IODIXANOL (VISIPAQUE) 320 MG/ML 100ML IV ONE (16:39)
[2024-10-12] MEDS: MIDAZOLAM HCL 1 MG/ML 2ML VIAL ONE ×2 (16:39→16:40)
[2024-10-12] MEDS: NITROGLYCERIN/D5W 100MCG/ML 20ML SYR ONE (16:40)
[2024-10-12] MEDS: hydrALAZINE HCL 20 MG/ML VIAL ONE ×2 (16:40)
[2024-10-12] MEDS: niCARdipine 2,000 MCG/20 ML SYR ONE (16:40)
--- NOTE | 2024-10-12 16:48 | Post Anesthesia Assessment ---
Date of Service October 12, 2024 Post Sedation Assessment Vital Signs Temp Pulse Pulse Resp BP BP Pulse Ox 10/12/24 13:42 61 14 171/92 H 97 10/12/24 13:08 81 16 10/12/24 12:44 64 15 10/12/24 12:35 72 20 10/12/24 12:20 65 10/12/24 12:14 64 22 10/12/24 12:02 62 23 10/12/24 12:00 164/78 H 10/12/24 11:56 68 19 10/12/24 11:42 61 23 10/12/24 11:39 61 10/12/24 11:24 69 20 10/12/24 11:03 71 21 10/12/24 10:56 167/92 H 10/12/24 10:54 66 15 10/12/24 10:51 65 18 10/12/24 10:48 64 10/12/24 10:27 60 18 10/12/24 09:12 22 10/12/24 09:03 60 24 10/12/24 08:57 57 L 22 10/12/24 08:30 54 L 21 10/12/24 08:27 54 L 17 10/12/24 08:18 56 L 17 10/12/24 08:03 180/87 H 10/12/24 08:03 180/87 H 10/12/24 08:00 67 21 10/12/24 07:57 12 10/12/24 07:33 56 L 13 10/12/24 07:05 15 10/12/24 07:00 53 L 16 10/12/24 06:59 56 L 10/12/24 06:54 54 L 16 10/12/24 06:30 54 L 19 10/12/24 06:27 50 L 18 10/12/24 06:18 53 L 16 10/12/24 06:03 56 L 14 10/12/24 05:54 59 L 13 10/12/24 05:48 60 13 10/12/24 05:21 58 L 17 10/12/24 05:09 59 L 15 10/12/24 04:45 54 L 17 10/12/24 04:33 55 L 18 10/12/24 04:25 170/79 H 10/12/24 04:25 170/79 H 10/12/24 04:15 70 16 05/02/25 04:00 142/90 H 10/12/24 04:00 10/12/24 04:00 97.5 F L 62 16 170/79 H 96 10/12/24 03:57 59 L 19 95 10/12/24 03:27 63 17 95 10/12/24 03:18 10/12/24 03:15 61 15 95 10/12/24 03:06 59 L 15 96 10/12/24 03:00 139/74 10/12/24 02:48 60 15 95 10/12/24 02:45 65 16 95 10/12/24 02:36 61 23 95 10/12/24 02:21 63 19 96 10/12/24 02:00 65 20 95 10/12/24 02:00 148/89 H 10/12/24 02:00 148/89 H 10/12/24 01:48 68 96 10/12/24 01:39 67 95 10/12/24 01:17 70 16 131/72 96 10/12/24 01:12 67 96 10/12/24 01:06 69 24 96 10/12/24 01:06 131/72 10/12/24 01:00 71 95 10/12/24 00:54 72 21 96 10/12/24 00:48 72 18 94 10/12/24 00:33 86 24 93 10/12/24 00:21 68 20 94 10/12/24 00:12 70 94 10/12/24 00:09 95 H 22 94 10/11/24 23:51 67 23 91 10/11/24 23:39 68 10/11/24 23:39 94 10/11/24 23:39 98.4 F 67 20 163/105 H 94 Pulse Ox O2 Del Method O2 Del Method 10/12/24 13:42 Room Air 10/12/24 13:08 10/12/24 12:44 10/12/24 12:35 10/12/24 12:20 10/12/24 12:14 10/12/24 12:02 10/12/24 12:00 10/12/24 11:56 10/12/24 11:42 10/12/24 11:39 10/12/24 11:24 10/12/24 11:03 10/12/24 10:56 10/12/24 10:54 10/12/24 10:51 10/12/24 10:48 10/12/24 10:27 10/12/24 09:12 10/12/24 09:03 10/12/24 08:57 10/12/24 08:30 10/12/24 08:27 10/12/24 08:18 10/12/24 08:03 10/12/24 08:03 10/12/24 08:00 10/12/24 07:57 10/12/24 07:33 10/12/24 07:05 10/12/24 07:00 10/12/24 06:59 10/12/24 06:54 10/12/24 06:30 10/12/24 06:27 10/12/24 06:18 10/12/24 06:03 10/12/24 05:54 10/12/24 05:48 10/12/24 05:21 10/12/24 05:09 10/12/24 04:45 10/12/24 04:33 10/12/24 04:25 10/12/24 04:25 10/12/24 04:15 10/12/24 04:00 10/12/24 04:00 Room Air 10/12/24 04:00 Room Air 10/12/24 03:57 10/12/24 03:27 10/12/24 03:18 95 Room Air 10/12/24 03:15 10/12/24 03:06 10/12/24 03:00 10/12/24 02:48 10/12/24 02:45 10/12/24 02:36 10/12/24 02:21 10/12/24 02:00 10/12/24 02:00 10/12/24 02:00 10/12/24 01:48 10/12/24 01:39 10/12/24 01:17 Room Air 10/12/24 01:12 10/12/24 01:06 10/12/24 01:06 10/12/24 01:00 10/12/24 00:54 10/12/24 00:48 10/12/24 00:33 10/12/24 00:21 10/12/24 00:12 10/12/24 00:09 10/11/24 23:51 10/11/24 23:39 10/11/24 23:39 Room Air 10/11/24 23:39 Room Air Recovery Score Activity: Moves 4 extremities Respiration: Deep Breath/Cough Circulation: +/-20% PreAnes Value Consciousness: Fully Awake Oxygen Saturation: O2 needed for >90% Discharge Sedation Level of Care: Fast Track Phase II Post Sedation Plan On clinical assessment, the patient appears to have tolerated the sedation without complications. Patient is recovering as anticipated. Patient will continue to be monitored by nursing and may be discharged when sedation discharge criteria are met per below protocol. Upon Completions of procedure up to 15 minutes continue every 5 minute vital signs and the P.A.R. score; then discharge to a Phase I or Fast Track to Phase II per the following guidelines: * Discharge Patient to appropriate Phase II area if PAR is 8 or greater or return to pre- procedure baseline. The post - procedure orders will be as directed. * If PAR score is less than 8 or not return to pre-procedure baseline then patient will follow Phase I monitoring till PAR is reached for Phase II. The Phase I may be done in procedure room or may call to secure a Phase I area. * If naloxone or flumazenil are used for reversal, hold in Phase I for continued monitoring from when last reversal dose was given for a minimum of 60 minutes or longer pending the nurse and/or physician discretion of patient condition before discharge to Phase II. Please call the Sedation Physician to re-evaluate and complete post-note for discharge to Phase II area. Do NOT discharge from procedure sedation or Phase 1 until post- sedation evaluation note is complete by procedure /sedation MD Sedation Discharge Instructions to be given to the patient at discharge to home.
--- NOTE | 2024-10-12 16:53 | Cardiac Catheterization ---
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 Cardiac Status Clinical evaluation leading to the procedure CAD Presenation: Non STEMI Anginal Classification: CCS IV Diagnostic Physicians Name: Kvng Claudio MD Closure Device Recommendations: Medical Therapy and/or Counseling Cardiac Cath Procedure Full Procedure Date October 12, 2024 Pre-Procedure Diagnosis Pre-Procedure Diagnosis: Non STEMI AUC Score AUC Score: 8 Post-Procedure Diagnosis Post-Procedure Diagnosis: Severe CAD and Normal Intracardiac Pressures Procedure(s) Performed Procedure(s) Performed: Coronary Angiography, Left Heart Cath and IVUS Digital Computer Operator Kvng Claudio MD Law Instructor(s) Roberto Estimated Blood Loss Estimated Blood Loss: 15 Medication(s) Medication(s): Fentanyl, Heparin, Lidocaine 1%, Nicardipine, Nitroglycerin and Versed Summary of Findings Indication: NSTEMI. History of coronary artery disease post multiple stents to RCA Access: 6 Fr slender right radial artery Catheters: [place], [place]-1, EBU 3.5 guide Findings: LM -pinchedangulated takeoff, normal caliber, 30% mid eccentric plaque LAD -medium caliber, 40% proximal stenosis mild mid segment disease with some myocardial bridging at angulated segment. Distal vessel small mild diffuse disease and tapers to apex. Small to medium caliber D1 30% ostial, medium D2 50 % ostial. Circumflex -small caliber, 100% latemid occlusion. OM 2 fills partially retrograde via left to left collaterals. RCA -dominant, large caliber, 20% ostial, 40 to 50% earlymid stenosis just proximal to mid segment stent. Mid segment stent patent with 40% ISR. Mid to distal stents widely patent distal segment stents widely patent. Large PDA and PLBs without significant disease. LVEDP -4 IVUS procedure Left main cannulated with EBU 3.5 guide BMW wire placed into mid LAD Benavidez IVUS catheter placed to proximal LAD Pullback revealed mild calcified disease and mid left main, mild calcified eccentric plaque at left main ostium. Wire then redirected into circumflex. Brief attempt to pass wire across mid circumflex occlusion unsuccessful. Occlusion appeared organized and decision made to abort procedure. Arterial Closure: TR band Summary: 1. Multivessel coronary artery disease - 100% small latemid circumflex occlusion with faint collaterals (suspected culprit). 30% mid left main (no significant ostial disease by IVUS) 40% proximal LAD, 50% ostial D2. 40-50% earlymid RCA. Mid to distal stents patent with 40% ISR in mid segment. 2. Normal intracardiac filling pressure Recommendations: Suspect circumflex occlusion is acute on chronic and likely culprit for his symptoms now almost 24 hours ago. He is chest pain-free, electrically stable and LV function preserved. Recommend medical management of his CAD. Continued ASCVD risk factor modification Long-term will follow-up Dr. Avery Hemodynamics Rest Ao:: 175/67/104 Final Ao: 189/78/127 LV: 161/4 Recommendations Recommendations: Medical Therapy and/or Counseling Radiation Exposure (mGy) 1997 Contrast (mls) 120 Anesthesia Moderate [id number] Disposition PCU I attest to the content of the Intraoperative Record and any orders documented therein. Any exceptions are noted below. [facility] Card Cath Procedure Codes Cardiac Catheterization Procedure 1: Cardiovascular Cath Procedures: 36114 Coronaries and LHC (+/-LV) Therapeutic Services & Ancillary Procedure 1: Cardiovascular Tx and Anc Procedures: 86444 IV Ultrasound (Coronary or Graft) Moderate Sedation Procedure 1: Sedation/Anesthesia: 52800 Mod Sedation by the same physician;Init15 Min Child Age 5 & Up Procedure 2: Sedation/Anesthesia: 57142 Mod Sedation by the same physician; Ea [id number] Minutes PG Care Time/CCT Total # of Minutes Spent Total Time Spent with Patient: Total time spent is greater than 50% in coordination of care (as documented) at patient's floor/unit and/or counseling patient:
[2024-10-12] MEDS: LIDOCAINE 2% JELLY 5 ML TUBE EXT ONE (17:55)
--- NOTE | 2024-10-12 18:28 | Communication Note ---
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 Right side extends all the way to and including his right ear. He says this is not itchy does not hurt. It has a beefy red appearance almost like an erysipelas nontender to touch, he has some slight flushing on his upper chest and some flushing of his right forearm closer to the IV site however no generalized rash. No lip or tongue swelling airway widely patent no stridor no wheezing on lung exam. He has also noticed that his left lower extremity was not as well-perfused as his right lower extremity. The right foot is warmer than the left foot which is cool. Cap refill is sluggish on both feet. DP and PT pulses are bounding on the right foot and present but only 1+ on the left foot. Femoral pulses are intact bilaterally. He denies any foot or leg pain. his daughters report that several weeks ago he had a kyphoplasty done at another hospital that they almost called off because his right foot kept looking very red. They talked about a duplex but did not proceed with it. Mr. 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 He denies any history of vascular disease or interventions in his legs. A/P: NSTEMI, post coronary angiography, chronically occluded circumflex. Discussed with Dr. 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 So contrast reaction unlikely. In case it is allergic (potentially related to pre-concrete laborer meds) will continue Solu-Medrol and IV Benadryl every 6 hours for 2 doses overnight. I will start ceftriaxone in case it is an erysipelas. left lower extremity decreased perfusion compared to rightI think this is a chronic issue. he may have underlying lower extremity vascular disease or it may be more of a vasomotor phenomenon like Raynaud's his hands do also turn colors. is unlikely that it would be An acute issue related to his cardiac cath with right radial access although it is possible, Particularly in atheroembolic shower. He will be on heparin overnight I did order a lower extremity arterial duplex. discussed the above with Dr. Claudio, daughters, bedside RN.
[2024-10-12] MEDS: METOPROLOL TARTRATE 25 MG TAB PO ONE (18:32)
[2024-10-12] MEDS: cefTRIAXone SODIUM 2,000 MG/50 ML BAG IV SCH (19:52)
[2024-10-12] MEDS: AMITRIPTYLINE HCL 100 MG TAB PO SCH (20:01)
[2024-10-12] MEDS: ASPIRIN 81 MG ECTAB PO SCH (20:01)
[2024-10-12] MEDS ORDERED: Nursing to Pharmacy Communication SCH (21:00)
[2024-10-12] MEDS: methylPREDNISolone 60 MG in SYRINGE 0 ML IV SCH (22:42)
[2024-10-12] MEDS: diphenhydrAMINE 50 MG/ML VIAL IV SCH (22:43)
[2024-10-12] MEDS ORDERED: methylPREDNISolone 125 MG/2 ML VIAL IV SCH (23:00)
--- NOTE | 2024-10-12 23:22 | Electrocardiogram Report ---
Test Reason : Blood Pressure : */* mmHG Vent. Rate : 65 BPM Atrial Rate : 65 BPM P-R Int : 174 ms QRS Dur : 172 ms QT Int : 460 ms P-R-T Axes : 44 122 -14 degrees QTcB Int : 478 ms Sinus rhythm with frequent Premature ventricular complexes Right bundle branch block Left posterior fascicular block Bifascicular block T wave abnormality, consider lateral ischemia Abnormal ECG When compared with ECG of 11-Oct-2024 23:40, (unconfirmed) No significant change was found Confirmed by Kvng Claudio ([id number]) on 10/12/2024 11:22:12 PM Referred By: REFERRED SELF Confirmed By: Kvng Claudio
--- NOTE | 2024-10-13 00:42 | Electrocardiogram Report ---
Test Reason : Blood Pressure : */* mmHG Vent. Rate : 71 BPM Atrial Rate : 71 BPM P-R Int : 136 ms QRS Dur : 168 ms QT Int : 450 ms P-R-T Axes : * 113 -16 degrees QTcB Int : 489 ms Sinus rhythm with frequent , and consecutive Premature ventricular complexes Right bundle branch block Possible Inferior infarct (cited on or before 05-Sep-2017) When compared with ECG of 05-Sep-2017 14:40, Premature ventricular complexes are now Present Inverted T waves have replaced nonspecific T wave abnormality in Inferior leads Confirmed by Kvng Claudio ([id number]) on 10/13/2024 12:42:38 AM Referred By: REFERRED SELF Confirmed By: Kvng Claudio
--- NOTE | 2024-10-13 00:46 | Ultrasound Report ---
Exam(s): US ARTERIAL BILATERAL LOWER EXTREMITIES EXAM: US Duplex Bilateral Lower Extremities Arteries CLINICAL HISTORY: Reason for exam: decreased pulses/perfusion LLE>RLE, post cath. TECHNIQUE: Real-time duplex ultrasound scan of the bilateral lower extremity arteries integrating B-mode two-dimensional vascular structure, Doppler spectral analysis and color flow Doppler imaging. COMPARISON: No relevant prior studies available. FINDINGS: Right common femoral artery: Right common femoral artery, triphasic waveform, 107 cm/s. Right deep femoral artery: Right deep femoral artery, biphasic waveform, 64 cm/s. Right superficial femoral artery: Right superficial femoral artery, triphasic waveform, 98, 138, and 103 cm/s. Right popliteal artery: Right popliteal artery, triphasic waveform, 76 and 84 cm/s. Right calf/foot arteries: Right posterior tibial artery, triphasic waveform, 68, 86, and 114 cm/s. Right peroneal artery, triphasic waveform, 74 and 92 cm/s proximal to mid. The distal peroneal artery demonstrates a sharp monophasic waveform, 66 cm/s. Right anterior tibial artery, triphasic waveform, 124, 113, 216, and 97 cm/s. Right dorsalis pedis artery, multiphasic waveform, 100 cm/s. Left common femoral artery: Left common femoral artery, triphasic waveform, 106 cm/s. Left deep femoral artery: Left deep femoral artery, biphasic waveform, 88 cm/s. Left superficial femoral artery: Left superficial femoral artery, triphasic waveform, 97, 103, and 75 cm/s. Left popliteal artery: Left popliteal artery, triphasic waveform, 75 cm/s. Left calf/foot arteries: Left posterior tibial artery, biphasic waveform, 75 cm/s. Left posterior tibial artery, biphasic waveform, 73, 118, and 65 cm/s. Left peroneal artery, biphasic waveform, 64 and 58 cm/s. Left anterior tibial artery, biphasic waveform, 92 and 59 cm/s. Left dorsalis pedis artery, biphasic waveform, 39 and 25 cm/s. Soft tissues: Unremarkable. IMPRESSION: Elevated velocity in the right anterior tibial artery consistent with 50- 74% stenosis. No other significant arterial stenosis is identified. Electronically signed by: Levon Rosas MD 10/13/24 00:45 AM
[2024-10-13 04:02] LABS: Hematocrit (blood only) 43.8 % (42.0-52.0); Hemoglobin 15.2 g/dl (14.0-18.0); Mean Corpuscular Hemoglobin 30.3 pg (25.0-34.0); Mean Corpuscular Hgb Conc 34.7 g/dL (32.0-36.0); Mean Corpuscular Volume 87.4 fL (80.0-100.0); Mean Platelet Volume 10.4 fL (9.4-12.4); Platelet Count 153 K/uL (130-400); RDW Coefficient of Variation 13.1 % (11.5-14.5); RDW Standard Deviation 41.2 fL (36.4-46.3); Red Blood Count 5.01 M/uL (4.70-6.10); White Blood Count 9.46 K/ul (4.8-10.8)
[2024-10-13 04:19] LABS: BUN Creatinine Ratio 21.3 (10-20); Calcium 8.3 mg/dl (8.6-10.3); Creatinine Clr Calc Pharmacy 59.8 ml/min; Potassium 4.1 mmol/L (3.5-5.1)
[2024-10-13 04:29] LABS: ANTI-Xa, UFH(UnfractionatedHep 0.27 IU/ml (0.3-0.7)
[2024-10-13] MEDS: LOSARTAN POTASSIUM 25 MG TAB PO SCH (08:38)
[2024-10-13] MEDS: METOPROLOL SUCC 50MG EXT REL TAB PO SCH (08:39)
--- NOTE | 2024-10-13 11:08 | Cardiology Progress Note ---
Date of Service October 13, 2024 Assessment & Plan (1) Non-ST elevated myocardial infarction: Plan: Acute on chronic occlusion of mid circumflexmedically managed 2. CAD-- PCIx4 (RCA, PDA)stents patent 3. Paroxysmal atrial fibrillation 4. Chest pain 5. CHF No recurrent chest pain. Reports breathing at baseline No access site complications Minimal residual congestion on exam. Blood pressure remains elevated Arterial duplex reviewedonly isolated right anterior tibial artery diseasenot clinically significant Can discontinue heparin this morning Start Eliquis 5 mg twice daily. Continue aspirin for now. Long-term if on Eliquis aspirin could be d iscontinued. Resume p.o. Lasix 40 mg daily Continue current Toprol-XL. Increase losartan to 50 mg daily Continue current statin. Okay with discharge today if breathing comfortably when up walking in room and BP reasonably controlled. From a cardiac standpoint he will follow-up with Dr. Avery. Admission and Anticipated Discharge Date Admission Date: October 12, 2024 Subjective Feeling well this morning. Denies any chest pain. Feels breathing at baseline. No significant pain in right radial artery access site. No leg pain. Review of Systems Review of Systems: All systems reviewed & are unremarkable except as noted in HPI & below Physical Exam Physical Exam: General: No acute distress, comfortable. HEENT: Sclera anicteric. Facial erythema reduced Lungs: Few crackles at bases bilaterally Cardiac: Regular rate, no murmurs Abdomen: Soft and nontender. Extremities/vascular: Well perfused. No edema. Right radial artery access site with no ecchymosis, hematoma. Distal pulse and sensation intact. Skin: numerous ecchymotic lesions on extremities Neurologic: Nonfocal Psychiatric: Affect appropriate. Alert and oriented. Results & Data Vital Signs (Past 12 Hours) Vital Signs Temp Pulse Pulse Resp BP Pulse Ox O2 Del Method 10/13/24 10:51 98.2 F 72 20 175/84 H 97 Room Air 10/13/24 07:00 97.5 F L 64 18 169/87 H 94 Room Air 10/13/24 03:12 97.7 F 61 19 162/80 H 95 Room Air 10/12/24 23:40 68 PG Care Time/CCT Total # of Minutes Spent Total Time Spent with Patient: Total time spent is greater than 50% in coordination of care (as documented) at patient's floor/unit and/or counseling patient: Coding Level of Care Code 46422 SUB INP/OBS CARE MIN Diagnoses Non-ST elevated myocardial infarction I21.4
[2024-10-13 11:23] LABS: ANTI-Xa, UFH(UnfractionatedHep 0.34 IU/ml (0.3-0.7)
[2024-10-13] MEDS: APIXABAN 5 MG TABLET PO SCH (12:40)
[2024-10-13] MEDS: FUROSEMIDE 40 MG TAB PO SCH (12:40)
--- NOTE | 2024-10-13 13:53 | Hospitalist Progress Note ---
Date of Service October 13, 2024 Assessment & Plan (1) Non-ST elevated myocardial infarction: (2) A-fib: (3) CAD (coronary artery disease): (4) Acute on chronic congestive heart failure: Plan 83 year old male with known CAD presents to the ER with chest pain with a. rib RVR, converted to NSR with diltiazem by EMS. found to have non-ST elevation PA. Underwent coronary angiography 10/12 his 4 stents were patent he had a chronically occluded left circumflex. no PCI was performed and he was treated medically with a heparin drip. # NSTEMI / CAD -stop heparin and resume apixaban -continue aspirin, statin -metoprolol was increased # Afib with RVR at presentation / PAF -controlled, stable -continue apixaban and metoprolol # Acute on chronic HFpEF -diuresed with IV lasix, appears euvolemic -resume oral lasix -increased losartan to 50 mg daily, continue B-fl[place] # Facial cellulitis - erisypelas onset 10/12. Treated with benadryl and solumedrol but seems less likely to have been allergic reaction. -improved -continue ceftriaxone, tolerating fine despite remote hives with PCN as a young man # Cool LLE with diminished DP pulse post cath -was on heparin drip at the time -reviewed LE arterial duplex which was negative for vascular disease in the legs -legs warm and equal pulses today -suspect some vasomotor phenomenon and may also have microvascular disease - same treatment as for his CAD #Type 2 diabetes mellitus / steroid induced hyperglycemia HbA1C at goal 6.7% Hold metformin Increased aspart premeal dosing and added carb correction, discussed with bedside RN #BPH - had urinary retention and required straight cath after heart procedure -urinating spontaneously -cont finasteride #GERD Continue lansoprazole #Obstructive sleep apnea CPAP HS VTE Prophylaxis -apixaban Suitable for discharge from a cardiac standpoint, however, I would like to see the facial erythema improving more and he needs to mobilize. Transfer to medical unit with tele Admission and Anticipated Discharge Date Admission Date: October 12, 2024 Subjective no chest pain no dyspnea, doing well post cath Facial erythema has significantly improved it is not itchy or painful. Flushing or questionable rash on upper chest and left arm has resolved Both lower extremities are warm and well-perfused with very strong DP pulses today no leg pain Physical Exam 2 Physical Exam: PHYSICAL EXAMINATION Last 24h vital signs reviewed, see documentation in flowsheet General: comfortable appearing, no distress HEENT: Normocephalic, atraumatic, pupils round and equal, sclerae anicteric, no conjunctival injection, moist mucus membranes, erythema of right face greater than left face significantly improved though some areas are still beefy red, with significant areas of clearing, right ear is less warm remains erythematous Lungs: Normal respiratory effort. Clear to auscultation bilaterally. No RRW Heart: Regular rate and rhythm, no murmurs. No JVD Abdomen: Soft, nontender, nondistended. Bowel sounds present. Extremities: Warm, dry, well-perfused. 2+ DP pulses bilaterally No extremity edema. Neuro: Alert and oriented x self hospital and basic situation, face symmetric, moves 4 extremities well Psych: Normal affect and behavior Results & Data Results & Data Vital Signs (Past 12 Hours) Vital Signs Temp Pulse Resp BP Pulse Ox O2 Del Method 10/13/24 10:51 36.8 C 72 20 175/84 H 97 Room Air 10/13/24 07:00 36.4 C L 64 18 169/87 H 94 Room Air 10/13/24 03:12 36.5 C 61 19 162/80 H 95 Room Air Laboratory Results 10/13/24 03:15 10/13/24 03:15 PG Care Time/CCT Total # of Minutes Spent Total Time Spent with Patient: Total time spent is greater than 50% in coordination of care (as documented) at patient's floor/unit and/or counseling patient: Coding Level of Care Code 57482 SUB INP/OBS CARE 3/50MIN Diagnoses Non-ST elevated myocardial infarction I21.4 A-fib I48.91 CAD (coronary artery disease) I25.10 Acute on chronic congestive heart failure I50.9
[2024-10-14 04:45] VITALS: TEMP 97.9
[2024-10-14] MEDS: LOSARTAN POTASSIUM 50 MG TAB PO SCH (08:52)
--- NOTE | 2024-10-14 09:19 | Electrocardiogram Report ---
Test Reason : Blood Pressure : */* mmHG Vent. Rate : 60 BPM Atrial Rate : 60 BPM P-R Int : 182 ms QRS Dur : 176 ms QT Int : 452 ms P-R-T Axes : 44 107 62 degrees QTcB Int : 452 ms Normal sinus rhythm Right bundle branch block Right axis deviation T wave abnormality, consider lateral ischemia Abnormal ECG When compared with ECG of 12-Oct-2024 11:42, Premature ventricular complexes are no longer Present Nonspecific T wave abnormality has replaced inverted T waves in Inferior leads T wave inversion more evident in Lateral leads Confirmed by Emerald Adkins ([id number]) on 10/14/2024 9:19:20 AM Referred By: REFERRED SELF Confirmed By: Emerald Adkins
[2024-10-14 11:19] VITALS: BP 111/72; PULSE 72; RESP 16; O2SAT 98
--- NOTE | 2024-10-14 13:22 | Cardiology Progress Note ---
Date of Service October 14, 2024 Assessment & Plan (1) Non-ST elevated myocardial infarction: (2) Atrial fibrillation with rapid ventricular response: (3) Acute on chronic congestive heart failure: Plan Patient scheduled for discharge later today. Advise consultation with PT OT as an outpatient to increase gait strengthening and stability. He is to follow-up with his primary physician Dr. Fidelia Chapa as well as his primary cook night Dr. Deep Avery in [place] to discuss potential Watchman procedure. Admission and Anticipated Discharge Date Admission Date: October 12, 2024 Subjective Cardiology follow-up. Patient was seen today along with his daughter. He is for discharge later today. I had an extensive talk with the patient and his da ughter about his overall risk of being on anticoagulation given his atrial fibrillation and I think he is at fairly high risk for long-term bleeding complications as well as his fall risk. I did encourage him to make a follow-up appointment with Dr. Muller or and discuss potential for a Watchman procedure. He would have to be maintained on anticoagulation for short period of time prior and post that procedure but it may alleviate the need for long-term anticoagulation. I also encouraged them to have an outpatient PT OT consultation for gait strengthening as well as stability. Review of Systems Review of Systems: All systems reviewed & are unremarkable except as noted in HPI & below Physical Exam Physical Exam: Without changes Results & Data Vital Signs (Past 12 Hours) Vital Signs Temp Pulse Resp BP Pulse Ox O2 Del Method 10/14/24 11:19 36.6 C 72 16 111/72 98 Room Air 10/14/24 07:00 36.6 C 58 L 18 163/81 H 96 Room Air 10/14/24 03:18 36.6 C 61 16 141/76 H 95 Room Air Laboratory Results Abnormal lab results 10/13/24 10/13/24 10/13/24 Range/Units 14:46 16:05 20:33 POC Glucose 207 H 172 H 216 H (70-99) mg/dl 10/14/24 10/14/24 Range/Units 07:15 11:11 POC Glucose 145 H 163 H (70-99) mg/dl Medications Administered Current Inpatient Medications Acetaminophen (Acetaminophen 325 Mg Tab) 650 mg PO Q4H PRN PRN Reason: Pain or Fever Stop: 11/11/24 03:17 Hydrocodone Bitart/Acetaminophen (Hydrocodone/Acetamophen 5/325mg Tab) 1 tab PO Q12 PRN PRN Reason: Pain Stop: 10/26/24 03:17 Amitriptyline HCl (Amitriptyline Hcl 100 Mg Tab) 100 mg PO HS PRICE Stop: 11/11/24 20:59 Last Admin: 10/13/24 20:56 Dose: 100 mg Apixaban (Apixaban 5 Mg Tablet) 5 mg PO Q12H PRICE Stop: 11/12/24 11:59 Last Admin: 10/14/24 11:56 Dose: 5 mg Aspirin (Aspirin 81 Mg Ectab) 81 mg PO HS PRICE Stop: 11/11/24 20:59 Last Admin: 10/13/24 20:55 Dose: 81 mg Dextrose (Dextrose 50% 50 Ml Syringe) 25 - 50 ml IV UD PRN; Protocol PRN Reason: Hypoglycemia Protocol Stop: 11/11/24 03:17 Finasteride (Finasteride 5 Mg Tab) 5 mg PO DAILY PRICE Stop: 11/11/24 08:59 Last Admin: 10/14/24 08:51 Dose: 5 mg Furosemide (Furosemide 40 Mg Tab) 40 mg PO QAM PRICE Stop: 11/12/24 11:59 Last Admin: 10/14/24 08:52 Dose: 40 mg Glucagon (Glucagon For Inj 1 Mg Vial) 1 mg SQ UD PRN; Protocol PRN Reason: Hypoglycemia Protocol Stop: 11/11/24 03:17 Glucose (Glucose 40% Gel 15 Gm Tube) 15 - 30 gm PO UD PRN; Protocol PRN Reason: Hypoglycemia Protocol Stop: 11/11/24 03:17 Glucose (Glucose 10 Tab/Tube) 4 - 8 tab PO UD PRN; Protocol PRN Reason: Hypoglycemia Protocol Stop: 11/11/24 03:17 Ceftriaxone Sodium (Rocephin) 2,000 mg in 50 mls @ 100 mls/hr IV Q24H PRICE Stop: 10/19/24 18:29 Last Infusion: 10/13/24 19:03 Dose: Infused Insulin Aspart (Insulin Aspart Per Unit Charge) 0 units SC ACHS PRICE Stop: 11/11/24 21:14 Last Admin: 10/14/24 11:55 Dose: 7 units Losartan Potassium (Losartan Potassium 50 Mg Tab) 50 mg PO QAM [facility] Stop: 11/13/24 08:59 Last Admin: 10/14/24 08:52 Dose: 50 mg Melatonin (Melatonin 3 Mg Tab) 3 mg PO HS PRN PRN Reason: Sleep Stop: 11/11/24 03:17 Metoprolol Succinate (Metoprolol Succ 50mg Ext Rel Tab) 50 mg PO QAM [facility] Stop: 11/12/24 08:59 Last Admin: 10/14/24 08:52 Dose: 50 mg Miscellaneous (Carbohydrates For Hypoglycemia ) 15 - 30 gm PO UD PRN PRN Reason: Hypoglycemia Protocol Stop: 11/11/24 03:17 Pantoprazole Sodium (Pantoprazole 40 Mg Tab) [facility]: 11/11/24 08:59 Last Admin: 10/14/24 08:53 Dose: 40 mg Potassium Chloride (Potassium Chloride 10 Meq Tabcr) 10 meq PO BID [facility] Stop: 11/11/24 08:59 Last Admin: 10/14/24 08:55 Dose: 10 meq Rosuvastatin Calcium (Rosuvastatin Calcium 10 Mg Tab) 10 mg PO QAM [facility] Stop: 11/11/24 08:59 Last Admin: 10/14/24 08:53 Dose: 10 mg
== END 2024-10-14 15:05 | disposition home health service (06) | DRG 280 ==
LOC: ED 23:35 → SUATTDRO 10-12 01:55 → EDINP 10-12 01:55 → 2S 10-12 17:01

== ENCOUNTER 2025-01-13 03:56 | Observation (INO) ==
--- NOTE | 2025-01-13 04:08 | Emergency Department Note ---
Impression & Plan Atrial fibrillation with RVR, CAD (coronary artery disease), Non-ST elevation (NSTEMI) myocardial infarction, Chest pain ED Provider Note NAME: RONNY JOHNSON AGE: 84 SEX: M : 1940 ARRIVES VIA: Ambulance INFORMANT: Patient, EMS report, family ED PROVIDER(S): Estevan Parker MD CHIEF COMPLAINT: Chest pain MEDICAL DECISION MAKING: Patient presents for the above. The patient had already received 50 mcg of fentanyl in addition to amiodarone 150 and route. IV was established and blood work was obtained along with EKG. EKG does show a right bundle branch block. Patient does have a prior history of right bundle branch block and does appear to be irregular. I did send the initial prehospital EKG in addition to the patient's old EKGs to Dr. Reyes who did not think that this was likely V. tach and thinks that this is likely A-fib and did agree with the amiodarone management prior to arrival. Review of the patient's prior admission noted the patient did cardiovert with Cardizem 20 mg IV. Further history obtained from family which reports patient did have a recent Watchman procedure with Dr. Ceballos December 21. Patient did show noticeable improvement with Cardizem and a repeat EKG showed the patient did return to a sinus rhythm. Patient with a normal white count H&H and platelet count. I did speak the on-call hospitalist Dr. Grajeda and the patient was admitted to the medicine service. Of note after the time of admission the patient was noted to have an elevated troponin. Initial management deferred inpatient team/cardiology services. Critical Care: I have personally spent 88 minutes of critical care time in direct management of this patient. This includes bedside care, interpretation of diagnostic studies, and testing, discussion with consultants, patient, and family members, and other require inpatient management activities. This 88 minutes is in excess of all separately billable procedures. Discussion w/ other healthcare providers: Dr. Reyes cardiology Dr. Grajeda inpatient medicine service Prior /Outside records reviewed: I reviewed part of the discharge summary from October 14, 2024. The patient was admitted for A-fib with RVR and associated chest pain. Patient did have an NSTEMI known CAD was treated with medical management. The patient was noted that he had 4 stents that were patent and a chronically occluded left circumflex. No PCI was performed he was treated medically with heparin at that time. The patient did have metoprolol 50 losartan 50 and Eliquis 5 started and the patient's lower dose of metoprolol was discontinued at that time. Differential diagnosis: Cardiac ischemia, aortic dissection, pulmonary embolism, pneumothorax, pneumonia, pericarditis, myocarditis, GERD, cholecystitis, pancreatitis, musculoskeletal, as well as other pathologies were considered. Diagnostics, as interpreted by me: ECG: Prehospital EKG A-fib with RVR ventricular rate 155 wide-complex tachycardia noted right bundle branch block Q waves noted inferiorly. Bundle-branch block peers to be old for comparison EKG from October 13, 2024 Repeat EKG interpreted by myself Likely A-fib with RVR wide QRS with right bundle branch block Repeat EKG interpreted by myself normal sinus rhythm rate of 63 wide QRS right bundle branch block pattern no obvious STEMI T wave inversions inferiorly with slight depressions in the lateral leads. Cardiac monitoring: An order was placed for continuous cardiac monitoring. The monitor shows a rate of 65 with sinus rhythm. Patient was placed on pulse oximetry Medical decision rules: None Imaging studies: I informally interpreted the patient's chest x-ray does not show obvious pneumothorax with formal report to follow. HPI: Patient presents due to concern for chest pain. Patient states this chest pain began last evening. It is left-sided. Is nonradiating. Describes it as a heaviness. No cough or fever. Patient states it was initially 20 out of 10 in severity currently 8 out of 10. Patient states that he has been taking his medications as prescribed. He recently did have a medication that was changed in addition to the medication that was held for several days. 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 Patient denies any abdominal pain no nausea vomiting. No leg swelling. 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 Ceballos. PAST MEDICAL HISTORY: See Below PAST SURGICAL HISTORY: See Below SOCIAL HISTORY: See Below HOME MEDICATIONS: See Below ALLERGIES: See Below VITALS: See Below PHYSICAL EXAMINATION: GENERAL: Fatigable but nontoxic in appearance. EYE EXAM: Normal conjunctiva. PERRL, no anisocoria and EOM's grossly intact w/o pain. OROPHARYNX: Moist mucus membranes, grossly normal dentition. NECK: Trachea midline, no stridor. Supple, no nuchal rigidity, no adenopathy, non-tender. No signs of meningismus. FROM of the neck with good chin to chest and neck extension. LUNGS: Clear to auscultation. Normal chest wall mechanics. HEART: Tachycardic and irregular irregular, no MRG. ABDOMEN: Abdomen soft, non-tender, no masses, no rebound or guarding. BACK: No CVA TTP. SKIN: No rashes and no bruising. UPPER EXTREMITIES: Upper extremities are grossly normal. LOWER EXTREMITIES: Grossly normal, no edema. NEURO EXAM: Awake and alert, follows commands, no obvious facial asymmetry, normal speech, moves all 4 extremities. Past Med/Surg History Problem List (Updated 01/13/25 @ 23:21 by Estevan Parker MD) Chest pain (Acute) Non-ST elevation (NSTEMI) myocardial infarction (Acute) CAD (coronary artery disease) (Acute) Atrial fibrillation with RVR (Acute) Heart failure with preserved ejection fraction Right bundle branch block CHF (congestive heart failure) Diabetes mellitus Erysipelas of face Non-ST elevated myocardial infarction Atrial fibrillation with rapid ventricular response (Acute) Acute on chronic congestive heart failure Trochanteric bursitis, right hip Trochanteric bursitis of left hip Benign prostatic hyperplasia with urinary obstruction (Acute) Incomplete bladder emptying (Acute) Nephrolithiasis (Acute) Dyslipidemia (Chronic) Hypertension (Chronic) GERD (gastroesophageal reflux disease) (Chronic) CAD (coronary artery disease) (Chronic) BPH (benign prostatic hyperplasia) (Chronic) A-fib (Chronic) Surgical History History of elbow surgery History of cervical spinal arthrodesis History of cholecystectomy Family History Mother Cardiac disorder Father Cardiac disorder Social History Smoking Status: Never smoker Second Hand Exposure: No; Do You Dip or Chew Tobacco: No; Hx Alcohol Use: No Hx Substance Use: No Preferred Language: Urdu Communication Ability: Effective Gm Mobile Required: No Beliefs That Will Affect Care: None Current Living Situation: Spouse Other Information That Helps Us Care for You: No Feels Safe at Home: Yes Safety Concerns: Feels Safe At This Time Assistive Devices: Glasses and Walker Allergies Allergies Allergy/AdvReac Type Severity Reaction Status Date / Time Iodinated Contrast Media Allergy Severe HIVES Verified 08/22/19 12:45 amoxicillin Allergy Intermediate HIVES Verified 10/14/24 13:18 bee venom protein (honey bee) Allergy Intermediate HIVES Verified 08/22/19 12:45 cortisone Allergy Intermediate SKIN Verified 08/22/19 12:45 IRRITATION iodine Allergy Intermediate HIVES Verified 08/22/19 12:45 Penicillins Allergy Intermediate HIVES Verified 08/22/19 12:45 lorazepam AdvReac Mild MAKES HIM Verified 08/22/19 12:45 GOOFY Home Meds Home Medications Medication Instructions Recorded Confirmed aspirin 81 mg tablet,delayed 0 mg PO HS 01/04/19 01/13/25 release amitriptyline 100 mg tablet 100 mg PO HS 10/12/24 01/13/25 finasteride 5 mg tablet 5 mg PO DAILY 10/12/24 01/13/25 furosemide 40 mg tablet 40 mg PO QAM 10/12/24 01/13/25 hydrocodone 5 mg-acetaminophen 325 0 tab PO Q12 10/12/24 01/13/25 mg tablet lansoprazole 30 mg capsule,delayed 30 mg PO QAM 10/12/24 01/13/25 release metformin 500 mg tablet 500 mg PO BID 10/12/24 01/13/25 potassium chloride 10 mEq 10 meq PO BID 10/12/24 01/13/25 capsule,extended release rosuvastatin 10 mg tablet 10 mg PO QAM 10/12/24 01/13/25 apixaban 5 mg tablet (Eliquis) 0 mg PO Q12H 01/13/25 01/13/25 clopidogrel 75 mg tablet 75 mg PO DAILY 01/13/25 01/13/25 losartan 50 mg tablet 25 mg PO QAM 01/13/25 01/13/25 Previous Rx's Medication Instructions Recorded metoprolol succinate 50 mg 50 mg PO QAM #30 tabs 10/14/24 tablet,extended release 24 hr Results & Data (ED) Vital Signs Vital Signs - 24 hr 01/13/25 04:00 01/13/25 04:02 01/13/25 04:02 Temperature Temperature Source Pulse Rate 136 H Pulse Rate [Right Finger] Pulse Rate from SpO2 Sensor 150 H Pulse Rhythm Pulse Rhythm [Right Finger] Pulse Strength Pulse Strength [Right Finger] Respiratory Rate 30 H Respiratory Effort / Characteristics Respiratory Depth Respiratory Pattern Blood Pressure 161/126 H 161/126 H Blood Pressure [Left Arm] Blood Pressure Mean 134 134 Blood Pressure Mean [Left Arm] Blood Pressure Position Blood Pressure Position [Left Arm] Pulse Oximetry 97 Oxygen Delivery Method Sepsis Recent Fever Within 48 Hours Sepsis New/Unexplained Change in Mental Status Sepsis Action Taken by Nursing 01/13/25 04:02 01/13/25 04:04 01/13/25 04:07 Temperature Temperature Source Pulse Rate 166 H Pulse Rate [Right Finger] Pulse Rate from SpO2 Sensor Pulse Rhythm Pulse Rhythm [Right Finger] Pulse Strength Pulse Strength [Right Finger] Respiratory Rate Respiratory Effort / Characteristics Non-Labored Respiratory Depth Normal Respiratory Pattern Blood Pressure 161/126 H Blood Pressure [Left Arm] Blood Pressure Mean 134 Blood Pressure Mean [Left Arm] Blood Pressure Position Blood Pressure Position [Left Arm] Pulse Oximetry Oxygen Delivery Method Room Air Sepsis Recent Fever Within 48 Hours Sepsis New/Unexplained Change in Mental Status Sepsis Action Taken by Nursing 01/13/25 04:07 01/13/25 04:07 01/13/25 04:07 Temperature 36.7 C 36.7 C Temperature Source Oral Oral Pulse Rate 146 H Pulse Rate [Right Finger] 153 H Pulse Rate from SpO2 Sensor Pulse Rhythm Regular Pulse Rhythm [Right Finger] Irregular Pulse Strength Normal Pulse Strength [Right Finger] Normal Respiratory Rate 30 H 28 H Respiratory Effort / Characteristics Non-Labored Spontaneous Non-Labored Spontaneous Respiratory Depth Normal Respiratory Pattern Tachypnea Regular Blood Pressure 161/126 H Blood Pressure [Left Arm] 161/126 H Blood Pressure Mean 137 Blood Pressure Mean [Left Arm] 137 Blood Pressure Position Lying Blood Pressure Position [Left Arm] Lying Pulse Oximetry 95 95 Oxygen Delivery Method Room Air Room Air Room Air Sepsis Recent Fever Within 48 Hours No Sepsis New/Unexplained Change in Mental Status No Sepsis Action Taken by Nursing Physician Notified 01/13/25 04:12 01/13/25 04:24 01/13/25 04:25 Temperature Temperature Source Pulse Rate 154 H Pulse Rate [Right Finger] 90 Pulse Rate from SpO2 Sensor 134 H Pulse Rhythm Pulse Rhythm [Right Finger] Regular Pulse Strength Pulse Strength [Right Finger] Normal Respiratory Rate 34 H 28 H Respiratory Effort / Characteristics Non-Labored Spontaneous Respiratory Depth Normal Respiratory Pattern Regular Blood Pressure 108/77 Blood Pressure [Left Arm] 108/77 Blood Pressure Mean 88 Blood Pressure Mean [Left Arm] 87 Blood Pressure Position Blood Pressure Position [Left Arm] Lying Pulse Oximetry 93 95 Oxygen Delivery Method Room Air Sepsis Recent Fever Within 48 Hours Sepsis New/Unexplained Change in Mental Status Sepsis Action Taken by Nursing 01/13/25 04:30 01/13/25 04:30 01/13/25 04:47 Temperature Temperature Source Pulse Rate 63 Pulse Rate [Right Finger] Pulse Rate from SpO2 Sensor Pulse Rhythm Regular Pulse Rhythm [Right Finger] Pulse Strength Pulse Strength [Right Finger] Respiratory Rate 18 Respiratory Effort / Characteristics Respiratory Depth Respiratory Pattern Blood Pressure 155/85 H 155/85 H Blood Pressure [Left Arm] Blood Pressure Mean 100 100 Blood Pressure Mean [Left Arm] Blood Pressure Position Blood Pressure Position [Left Arm] Pulse Oximetry 95 Oxygen Delivery Method Room Air Sepsis Recent Fever Within 48 Hours Sepsis New/Unexplained Change in Mental Status Sepsis Action Taken by Nursing 01/13/25 04:50 01/13/25 04:50 01/13/25 04:51 Temperature Temperature Source Pulse Rate 62 Pulse Rate [Right Finger] Pulse Rate from SpO2 Sensor 59 L Pulse Rhythm Pulse Rhythm [Right Finger] Pulse Strength Pulse Strength [Right Finger] Respiratory Rate 28 H Respiratory Effort / Characteristics Respiratory Depth Respiratory Pattern Blood Pressure 177/88 H 177/88 H Blood Pressure [Left Arm] Blood Pressure Mean 139 139 Blood Pressure Mean [Left Arm] Blood Pressure Position Blood Pressure Position [Left Arm] Pulse Oximetry 94 Oxygen Delivery Method Sepsis Recent Fever Within 48 Hours Sepsis New/Unexplained Change in Mental Status Sepsis Action Taken by Nursing 01/13/25 04:54 Temperature Temperature Source Pulse Rate 63 Pulse Rate [Right Finger] Pulse Rate from SpO2 Sensor Pulse Rhythm Pulse Rhythm [Right Finger] Pulse Strength Pulse Strength [Right Finger] Respiratory Rate Respiratory Effort / Characteristics Respiratory Depth Respiratory Pattern Blood Pressure Blood Pressure [Left Arm] Blood Pressure Mean Blood Pressure Mean [Left Arm] Blood Pressure Position Blood Pressure Position [Left Arm] Pulse Oximetry Oxygen Delivery Method Sepsis Recent Fever Within 48 Hours Sepsis New/Unexplained Change in Mental Status Sepsis Action Taken by [facility] Medications Current Medication List: was personally reviewed by me Laboratory Data Attestation: I reviewed the patient's lab results. 01/13/25 04:07 01/13/25 04:07 Lab Results 01/13/25 01/13/25 Range/Units 04:06 04:07 WBC 9.78 (4.8-10.8) K/ul RBC 5.08 (4.70-6.10) M/uL Hgb 15.2 (14.0-18.0) g/dl POC Hgb 14.6 (14.0-18.0) g/dl Hct 46.4 (42.0-52.0) % POC Hct 43 (42-52) % MCV 91.3 (80.0-100.0) fL MCH 29.9 (25.0-34.0) pg MCHC 32.8 (32.0-36.0) g/dL RDW Std Deviation 43.9 (36.4-46.3) fL RDW Coeff of Tory 13.1 (11.5-14.5) % Plt Count 179 (130-400) K/uL MPV 10.3 (9.4-12.4) fL Immature Gran % (Auto) 1.2 % Neut % (Auto) 59.6 % Lymph % (Auto) 29.9 % [place] % (Auto) 8.6 % Eos % (Auto) 0.5 % Baso % (Auto) 0.2 % Neut # (Auto) 5.83 (1.40-6.50) K/uL Lymph # (Auto) 2.92 (1.20-3.40) K/uL [place] # (Auto) 0.84 H (0.11-0.59) K/uL Eos # (Auto) 0.05 (0.00-0.50) K/uL Baso # (Auto) 0.02 (0.00-0.20) K/uL Immature Gran # (Auto) 0.12 (0.01-0.20) K/uL PT 10.7 (9.0-12.0) Seconds INR 1.0 (0.9-1.1) APTT 23 (21-31) Seconds PTT Ratio 0.9 POC Sodium 140 (135-144) mmol/L Sodium 139 (136-145) mmol/L POC Potassium 4.1 (3.3-5.0) mmol/L Potassium 3.9 (3.5-5.1) mmol/L POC Chloride 105 (101-112) mmol/L Chloride 106 (98-107) mmol/L Carbon Dioxide 26 (21-32) mmol/L POC Total CO2 24 (24-31) mmol/L Anion Gap 7 (3-11) POC Anion Gap 16.0 (16-25) mmol/L POC BUN 27 H (7-18) mg/dl BUN 27 H (6-23) mg/dl Creatinine 0.99 (0.6-1.4) mg/dl POC Creatinine 1.0 (0.6-1.3) mg/dl Est Cr Clr Drug Dosing 64.8 ml/min eGFR 74.19 BUN/Creatinine Ratio 27.3 H (10-20) Glucose 214 H (70-99(Fasting)) mg/dl POC Glucose (other) 210 H (70-99) mg/dl Calcium 8.4 L (8.6-10.3) mg/dl POC Ioniz Calcium Mil 1.05 L (1.12-1.32) mmol/l Magnesium 1.9 (1.7-2.4) mg/dl Total Bilirubin 0.4 (0.2-1.0) mg/dl AST 11 L (13-39) U/L ALT 14 (7-52) U/L Alkaline Phosphatase 76 (34-104) U/L Troponin I High Sens 17.9 (0-20) pg/ml Total Protein 6.2 (6.0-8.3) gm/dl Albumin 3.5 (3.4-5.0) gm/dl Globulin 2.7 (2.5-4.0) gm/dl Albumin/Globulin Ratio 1.3 (0.9-2) Lipase 14 (11-82) U/L Administered Medications Amiodarone HCl (Amiodarone 200 Mg Tab) 400 mg PO BIDM PRICE Stop: 02/12/25 16:59 Last Admin: 01/13/25 16:35 Dose: 400 mg Documented By: AUIDE Amitriptyline HCl (Amitriptyline Hcl 100 Mg Tab) 100 mg PO HS PRICE Stop: 02/12/25 20:59 Last Admin: 01/13/25 20:53 Dose: 100 mg Documented By: ROBYN Aspirin (Aspirin 81 Mg Ectab) 81 mg PO HS PRICE Stop: 02/12/25 20:59 Last Admin: 01/13/25 20:53 Dose: 81 mg Documented By: ROBYN Finasteride (Finasteride 5 Mg Tab) 5 mg PO DAILY PRICE Stop: 02/12/25 08:59 Last Admin: 01/13/25 10:15 Dose: 5 mg Documented By: BLANK Heparin Sodium/Dextrose (Heparin 06233 Unit/500 Ml D5w) 25,000 units in 500 mls @ 25 mls/hr IV .Q20H [facility]; Protocol Stop: 02/12/25 12:59 Last Titration: 01/13/25 21:15 Dose: 1,250 units/hr, 25 mls/hr Documented By: ROBYN Co-signed By: DC Admin: 01/13/25 13:13 Dose: 1,000 units/hr, 20 mls/hr Documented By: maite Co-signed By: KRIS Insulin Aspart (Insulin Aspart Per Unit Charge) 0 units SC ACHS [facility] Stop: 02/12/25 11:29 Last Admin: 01/13/25 20:26 Dose: Not Given Documented By: Admin: 01/13/25 16:43 Dose: Not Given Documented By: Admin: 01/13/25 12:00 Dose: Not Given Documented By: LEMUEL Co-signed By: BLANK Losartan Potassium (Losartan Potassium 25 Mg Tab) 25 mg PO [facility] Stop: 02/12/25 12:44 Last Admin: 01/13/25 14:32 Dose: 25 mg Documented By: LEMUEL Potassium Chloride (Potassium Chloride 10 Meq Tabcr) 10 meq PO BID [facility] Stop: 02/12/25 08:59 Last Admin: 01/13/25 20:53 Dose: 10 meq Documented By: Admin: 01/13/25 10:15 Dose: 10 meq Documented By: BLANK Discontinued Medications Clopidogrel Bisulfate (Clopidogrel Bisulfate 300 Mg Tab) 300 mg PO NOW ONE Stop: 01/13/25 12:35 Last Admin: 01/13/25 14:32 Dose: 300 mg Documented By: LEMUEL Diltiazem HCl (Diltiazem Hcl 5 Mg/Ml 5 Ml Vial) 20 mg IV NOW STA Stop: 01/13/25 04:10 Last Admin: 01/13/25 04:21 Dose: 20 mg Documented By: MARIA LUISA Co-signed By: ALBERT Fentanyl Citrate (Fentanyl Citrate Pf 100 Mcg/2 Ml Vial) 25 mcg IV NOW ONE Stop: 01/13/25 05:12 Last Admin: 01/13/25 05:39 Dose: 25 mcg Documented By: MARIA LUISA Furosemide (Furosemide 40 Mg Tab) 40 mg PO [facility] Stop: 02/12/25 08:59 Last Admin: 01/13/25 10:15 Dose: 40 mg Documented By: CC Heparin Sodium (Porcine) 4,500 (units/ Syringe) 4.5 mls @ 10 mls/min IV NOW ONE Stop: 01/13/25 21:16 Last Admin: 01/13/25 21:58 Dose: 10 mls/min Documented By: ROBYN Co-signed By: ERIKA Metoprolol Succinate (Metoprolol Succ 50mg Ext Rel Tab) 50 mg PO QAM PRICE Stop: 02/12/25 08:59 Last Admin: 01/13/25 10:15 Dose: 50 mg Documented By: CC Rosuvastatin Calcium (Rosuvastatin Calcium 10 Mg Tab) 10 mg PO QAM PRICE Stop: 02/12/25 08:59 Last Admin: 01/13/25 10:15 Dose: 10 mg Documented By: CC Imaging Data Radiologist's Impression: Chest X-Ray 01/13/25 04:36 EXAM: XR chest 1V portable CLINICAL HISTORY: Chest pain. TECHNIQUE: An X-ray image of the chest is obtained in AP projection. COMPARISON: CR 10/10/2024. FINDINGS: Pulmonary Parenchyma: Mild bilateral hilar vascular congestion. Unchanged. Haziness/atelectasis seen in the left lower lobe. Less prominent than prior study. Obliterated left costophrenic angle, may be due to mild left pleural effusion. No pulmonary nodules are identified. Elevated right diaphragmatic copula. (stable) Heart and Mediastinum: Mildly enlarged cardiac shadow. No mediastinal widening or masses. No hilar or mediastinal lymphadenopathy. Bony Thorax: Bony thorax appears intact without fractures or deformities. Soft Tissues: Soft tissues overlying the chest wall are unremarkable. IMPRESSION: 1. Cardiomegaly with bilateral hilar vascular congestion. Stable. 2. Elevated right copula of diaphragm. Unchanged. 3. Haziness/atelectasis seen in the left lower lobe. Less prominent than prior study. Interval improvement. 4. Small left pleural effusion, interval decrease (regressive). Electronically signed by Ameya Vincent 01-13-2025 06:18 AM Discharge Plan Visit Data Chief Complaint: Cardiac Assessment Stated Complaint: CHEST PAIN ED Provider: Estevan Parker Discharge Problem: Atrial fibrillation with RVR, CAD (coronary artery disease), Non-ST elevation (NSTEMI) myocardial infarction, Chest pain Patient Disposition: Admitted As Inpatient Condition: Good Discharge Instructions Interventions: ED Discharge Assessment Last Done: 01/13/25 08:42 Discharge Problem: CAD (coronary artery disease) Qualifiers: Coronary Disease-Associated Artery/Lesion type: unspecified vessel or lesion type [place] vs. transplanted heart: grindstone heart Associated angina: unspecified whether angina present Qualified Code(s): I25.10 - Atherosclerotic heart disease of [place] coronary artery without angina pectoris Chest pain Qualifiers: Chest pain type: unspecified Qualified Code(s): R07.9 - Chest pain, unspecified
[2025-01-13 04:59] LABS: Hematocrit (blood only) 46.4 % (42.0-52.0); Hemoglobin 15.2 g/dl (14.0-18.0); Immature Granulocytes # (auto) 0.12 K/uL (0.01-0.20); Immature Granulocytes % (auto) 1.2 %; Mean Corpuscular Hemoglobin 29.9 pg (25.0-34.0); Mean Corpuscular Volume 91.3 fL (80.0-100.0); Platelet Count 179 K/uL (130-400); RDW Standard Deviation 43.9 fL (36.4-46.3); Red Blood Count 5.08 M/uL (4.70-6.10); White Blood Count 9.78 K/ul (4.8-10.8)
[2025-01-13 05:22] LABS: Alanine Aminotransferase 14.0 U/L (7-52); Albumin Globulin Ratio 1.3 (0.9-2); Alkaline Phosphatase 76.0 U/L (34-104); Anion Gap 7.0 (3-11); Bilirubin,Total 0.4 mg/dl (0.2-1.0); Blood Urea Nitrogen 27.0 mg/dl (6-23); Calcium 8.4 mg/dl (8.6-10.3); Carbon Dioxide 26.0 mmol/L (21-32); Chloride 106.0 mmol/L (98-107); Creatinine Clr Calc Pharmacy 64.8 ml/min; Globulin 2.7 gm/dl (2.5-4.0); Glucose 214.0 mg/dl (70-99(Fasting)); Lipase 14.0 U/L (11-82); Magnesium 1.9 mg/dl (1.7-2.4); Sodium 139.0 mmol/L (136-145); Total Protein 6.2 gm/dl (6.0-8.3)
[2025-01-13 05:31] LABS: INR 1.0 (0.9-1.1); Partial Thromboplastin Time 23 Seconds (21-31); Prothrombin Time 10.7 Seconds (9.0-12.0)
[2025-01-13 05:39] LABS: Potassium 3.9 mmol/L (3.5-5.1)
--- NOTE | 2025-01-13 06:08 | History & Physical Report ---
Date of Service January 13, 2025 Assessment & Plan (1) Atrial fibrillation with rapid ventricular response: (2) Hypertension: (3) CAD (coronary artery disease): (4) Diabetes mellitus: (5) CHF (congestive heart failure): (6) GERD (gastroesophageal reflux disease): Plan The patient is an 84-year-old male with a past medical history including atrial fibrillation, status post Watchman procedure on 12/21/2024, at which time Eliquis was stopped. Due to excessive bruising he had Plavix and losartan stopped on 01/09/2025. He was awoken by chest pain and palpitations earlier this evening, and received amiodarone 150 mg, aspirin 324 mg, and fentanyl 50 mcg IV en route to the emergency department by EMS. Upon arrival to the emergency department, patient was found to be in A-fib with RVR and aberrancy. He was given Cardizem 20 mg IV, and after about 1 hour, his heart rhythm and rate changed to normal sinus rhythm in the low 60s. Patient denies any different oral intake, or physical activity pattern. He reports taking his medications as directed. Cardiology was contacted by the emergency department, and will see the patient this morning. Atrial fibrillation with RVR/hypertension/CAD/CHF- The patient will be admitted to telemetry for serial cardiac enzymes, serial EKG's, cardiac rhythm monitoring En route to the hospital patient received amiodarone 150 mg IV, aspirin 324 mg, and fentanyl 50 mcg IV. Upon arrival to the ED patient also received Cardizem 20 mg IV He did convert to normal sinus rhythm with a rate in the low 60s, and systolic blood pressure in the 170s. Apixaban was stopped on December 21 when he had his Watchman placed. Troponin 17.9, will repeat in 2 hours. Likely secondary to increased heart rate Continue aspirin 81 mg daily, metoprolol succinate 50 mg every morning, furosemide 40 mg every morning, and potassium chloride 10 mill equivalents p.o. twice daily His Plavix and losartan were discontinued on 01/09 due to significant bruising Consult cardiology Diabetes mellitus- Hold metformin Placed on Accu-Cheks with NovoLog SSI GERD- Continue lansoprazole/pantoprazole daily Pain control- Acetaminophen 650 mg by mouth every 6 hours as needed for mild pain or fever Hydrocodone/acetaminophen 5/325, 1 every 6 hours as needed for moderate pain Hyperlipidemia- Continue rosuvastatin History of Present Illness Chief Complaint: The patient presents to the emergency department with complaint of chest pain and palpitations that occurred earlier this evening. En route to the hospital he received amiodarone 150 mg IV, aspirin 324 mg, fentanyl 50 mcg IV. Upon arrival to the [facility] ED, he was found to be in atrial fibrillation with RVR with aberrancy, and with rate 150-170. Primary Care Provider: Fidelia Chapa DO The patient is an 84-year-old male with a past medical history including atrial fibrillation, status post Watchman procedure on 12/21/2024, at which time Eliquis was stopped. Due to excessive bruising he had Plavix and losartan stopped on 01/09/2025. He was awoken by chest pain and palpitations earlier this evening, and received amiodarone 150 mg, aspirin 324 mg, and fentanyl 50 mcg IV en route to the emergency department by EMS. Upon arrival to the emergency department, patient was found to be in A-fib with RVR and aberrancy. He was given Cardizem 20 mg IV, and after about 1 hour, his heart rhythm and rate changed to normal sinus rhythm in the low 60s. Patient denies any different oral intake, or physical activity pattern. He reports taking his medications as directed. Cardiology was contacted by the emergency department, and will see the patient this morning. Allergies Allergy/AdvReac Type Severity Reaction Status Date / Time Iodinated Contrast Media Allergy Severe HIVES Verified 08/22/19 12:45 amoxicillin Allergy Intermediate HIVES Verified 10/14/24 13:18 bee venom protein (honey bee) Allergy Intermediate HIVES Verified 08/22/19 12:45 cortisone Allergy Intermediate SKIN Verified 08/22/19 12:45 IRRITATION iodine Allergy Intermediate HIVES Verified 08/22/19 12:45 Penicillins Allergy Intermediate HIVES Verified 08/22/19 12:45 lorazepam AdvReac Mild MAKES HIM Verified 08/22/19 12:45 GOOFY Home Medications Medication Instructions Recorded Confirmed Type aspirin 81 mg tablet,delayed 81 mg PO HS 01/04/19 10/12/24 History release amitriptyline 100 mg tablet 100 mg PO HS 10/12/24 10/12/24 History finasteride 5 mg tablet 5 mg PO DAILY 10/12/24 10/12/24 History furosemide 40 mg tablet 40 mg PO QAM 10/12/24 10/12/24 History hydrocodone 5 mg-acetaminophen 325 1 tab PO Q12 10/12/24 10/12/24 History mg tablet lansoprazole 30 mg capsule,delayed 30 mg PO QAM 10/12/24 10/12/24 History release metformin 500 mg tablet 500 mg PO BID 10/12/24 10/12/24 History potassium chloride 10 mEq 10 meq PO BID 10/12/24 10/12/24 History capsule,extended release rosuvastatin 10 mg tablet 10 mg PO QAM 10/12/24 10/12/24 History apixaban 5 mg tablet (Eliquis) 5 mg PO Q12H #60 tabs 10/14/24 Rx losartan 50 mg tablet 50 mg PO QAM #30 tabs 10/14/24 Rx metoprolol succinate 50 mg 50 mg PO QAM #30 tabs 10/14/24 Rx tablet,extended release 24 hr Past Med/Surg History Problem List (Updated 01/13/25 @ 06:02 by Gaetano Frederick MD) CHF (congestive heart failure) Diabetes mellitus Erysipelas of face Non-ST elevated myocardial infarction Atrial fibrillation with rapid ventricular response (Acute) Acute on chronic congestive heart failure Trochanteric bursitis, right hip Trochanteric bursitis of left hip Benign prostatic hyperplasia with urinary obstruction (Acute) Incomplete bladder emptying (Acute) Nephrolithiasis (Acute) Dyslipidemia (Chronic) Hypertension (Chronic) GERD (gastroesophageal reflux disease) (Chronic) CAD (coronary artery disease) (Chronic) BPH (benign prostatic hyperplasia) (Chronic) A-fib (Chronic) Surgical History History of elbow surgery History of cervical spinal arthrodesis History of cholecystectomy Family History Mother Cardiac disorder Father Cardiac disorder Social History Smoking Status: Never smoker Second Hand Exposure: No; Do You Dip or Chew Tobacco: No; Hx Alcohol Use: No Hx Substance Use: No Preferred Language: Estonian Communication Ability: Effective 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 Beliefs That Will Affect Care: None Current Living Situation: Spouse Feels Safe at Home: Yes Assistive Devices: Walker Review of Systems Review of Systems: The patient denies cough, lower extremity swelling, sore throat, fevers, chills, sweats, nausea, vomiting, diarrhea , constipation, abdominal pain, pelvic pain, blood in urine or stool, dysuria, urinary frequency or urgency, lightheadedness, dizziness, headache, memory loss, loss of consciousness, rash, abnormal bruising or bleeding, imbalance, focal weakness, numbness or tingling in arms or legs, generalized arthralgias or myalgias, back or neck pain, or night sweats. The review of systems is otherwise negative other than for that already noted above, and at least 10 systems have been reviewed. Physical Exam Physical Exam: The patient is awake, alert and oriented 3, well developed and well nourished, normocephalic and atraumatic, lying in bed and in no acute distress. HEENT--PERRL, EOMI, mucous membranes and oropharynx dry. Neck--supple. No JVD. No bruits. Thyroid normal, trachea midline, no adenopathy. Heart-examination was initially irregularly irregular and tachycardic, but later converted to normal sinus rhythm Lungs--clear bilaterally, no respiratory distress, no accessory muscle use. Abdomen--normal bowel sounds and soft. Nontender. Nondistended, no hernias or masses, no organomegaly. Extremities--no cyanosis or clubbing. No edema. There are good distal pulses b/l. Dermatologic--normal skin turgor, normal color, no abnormal lymph nodes, no rash. Neurologic--cranial nerves II through XII grossly intact. Rheumatologic--normal range of motion. Psychiatric--normal affect. Results & Data Results & Data Vital Signs (Past 12 Hours) Vital Signs Temp Pulse Pulse Resp BP BP Pulse Ox 01/13/25 04:54 63 01/13/25 04:51 62 28 H 94 01/13/25 04:50 177/88 H 01/13/25 04:50 177/88 H 01/13/25 04:47 63 18 95 01/13/25 04:30 155/85 H 01/13/25 04:30 155/85 H 01/13/25 04:25 108/77 01/13/25 04:24 90 28 H 108/77 95 01/13/25 04:12 154 H 34 H 93 01/13/25 04:07 36.7 C 153 H 28 H 161/126 H 95 01/13/25 04:07 01/13/25 04:07 36.7 C 146 H 30 H 161/126 H 95 01/13/25 04:07 01/13/25 04:04 166 H 01/13/25 04:02 161/126 H 01/13/25 04:02 161/126 H 01/13/25 04:02 161/126 H 01/13/25 04:00 136 H 30 H 97 O2 Del Method 01/13/25 04:54 01/13/25 04:51 01/13/25 04:50 01/13/25 04:50 01/13/25 04:47 Room Air 01/13/25 04:30 01/13/25 04:30 01/13/25 04:25 01/13/25 04:24 Room Air 01/13/25 04:12 01/13/25 04:07 Room Air 01/13/25 04:07 Room Air 01/13/25 04:07 Room Air 01/13/25 04:07 Room Air 01/13/25 04:04 01/13/25 04:02 01/13/25 04:02 01/13/25 04:02 01/13/25 04:00 Laboratory Results Laboratory Results WBC 9.78 K/ul (4.8-10.8) 01/13/25 04:07 RBC 5.08 M/uL (4.70-6.10) 01/13/25 04:07 Hgb 15.2 g/dl (14.0-18.0) 01/13/25 04:07 Hct 46.4 % (42.0-52.0) 01/13/25 04:07 MCV 91.3 fL (80.0-100.0) 01/13/25 04:07 MCH 29.9 pg (25.0-34.0) 01/13/25 04:07 MCHC 32.8 g/dL (32.0-36.0) 01/13/25 04:07 RDW Std Deviation 43.9 fL (36.4-46.3) 01/13/25 04:07 RDW Coeff of Tory 13.1 % (11.5-14.5) 01/13/25 04:07 Plt Count 179 K/uL (130-400) 01/13/25 04:07 MPV 10.3 fL (9.4-12.4) 01/13/25 04:07 Immature Gran % (Auto) 1.2 % 01/13/25 04:07 Neut % (Auto) 59.6 % 01/13/25 04:07 Lymph % (Auto) 29.9 % 01/13/25 04:07 Rincon % (Auto) 8.6 % 01/13/25 04:07 Eos % (Auto) 0.5 % 01/13/25 04:07 Baso % (Auto) 0.2 % 01/13/25 04:07 Neut # (Auto) 5.83 K/uL (1.40-6.50) 01/13/25 04:07 Lymph # (Auto) 2.92 K/uL (1.20-3.40) 01/13/25 04:07 Rincon # (Auto) 0.84 K/uL (0.11-0.59) H 01/13/25 04:07 Eos # (Auto) 0.05 K/uL (0.00-0.50) 01/13/25 04:07 Baso # (Auto) 0.02 K/uL (0.00-0.20) 01/13/25 04:07 Immature Gran # (Auto) 0.12 K/uL (0.01-0.20) 01/13/25 04:07 PT 10.7 Seconds (9.0-12.0) 01/13/25 04:07 INR 1.0 (0.9-1.1) 01/13/25 04:07 APTT 23 Seconds (21-31) 01/13/25 04:07 PTT Ratio 0.9 01/13/25 04:07 Sodium 139 mmol/L (136-145) 01/13/25 04:07 Potassium 3.9 mmol/L (3.5-5.1) 01/13/25 04:07 Chloride 106 mmol/L (98-107) 01/13/25 04:07 Carbon Dioxide 26 mmol/L (21-32) 01/13/25 04:07 Anion Gap 7 (3-11) 01/13/25 04:07 BUN 27 mg/dl (6-23) H 01/13/25 04:07 Creatinine 0.99 mg/dl (0.6-1.4) 01/13/25 04:07 Est Cr Clr Drug Dosing 64.8 ml/min 01/13/25 04:07 eGFR 74.19 01/13/25 04:07 BUN/Creatinine Ratio 27.3 (10-20) H 01/13/25 04:07 Glucose 214 mg/dl (70-99(Fasting)) H 01/13/25 04:07 Calcium 8.4 mg/dl (8.6-10.3) L 01/13/25 04:07 Magnesium 1.9 mg/dl (1.7-2.4) 01/13/25 04:07 Total Bilirubin 0.4 mg/dl (0.2-1.0) 01/13/25 04:07 AST 11 U/L (13-39) L 01/13/25 04:07 ALT 14 U/L (7-52) 01/13/25 04:07 Alkaline Phosphatase 76 U/L (34-104) 01/13/25 04:07 Troponin I High Sens 17.9 pg/ml (0-20) 01/13/25 04:07 Total Protein 6.2 gm/dl (6.0-8.3) 01/13/25 04:07 Albumin 3.5 gm/dl (3.4-5.0) 01/13/25 04:07 Globulin 2.7 gm/dl (2.5-4.0) 01/13/25 04:07 Albumin/Globulin Ratio 1.3 (0.9-2) 01/13/25 04:07 Lipase 14 U/L (11-82) 01/13/25 04:07 Code Status & VTE Plan Code Status Full code VTE Prophylaxis Plan VTE Prophylaxis will be ordered: Yes PG Care Time/CCT Total # of Minutes Spent Total Time Spent with Patient: Total time spent is greater than 50% in coordination of care (as documented) at patient's floor/unit and/or counseling patient: Coding Level of Care Code 21297 INT INP/OBS CARE 3/75MIN Diagnoses Atrial fibrillation with rapid ventricular response I48.91 Hypertension I10 CAD (coronary artery disease) I25.10 Diabetes mellitus E11.9 CHF (congestive heart failure) I50.9 GERD (gastroesophageal reflux disease) K21.9
--- NOTE | 2025-01-13 06:18 | XRay Report ---
EXAM: XR chest 1V portable CLINICAL HISTORY: Chest pain. TECHNIQUE: An X-ray image of the chest is obtained in AP projection. COMPARISON: CR 10/10/2024. FINDINGS: Pulmonary Parenchyma: Mild bilateral hilar vascular congestion. Unchanged. Haziness/atelectasis seen in the left lower lobe. Less prominent than prior study. Obliterated left costophrenic angle, may be due to mild left pleural effusion. No pulmonary nodules are identified. Elevated right diaphragmatic copula. (stable) Heart and Mediastinum: Mildly enlarged cardiac shadow. No mediastinal widening or masses. No hilar or mediastinal lymphadenopathy. Bony Thorax: Bony thorax appears intact without fractures or deformities. Soft Tissues: Soft tissues overlying the chest wall are unremarkable. IMPRESSION: 1. Cardiomegaly with bilateral hilar vascular congestion. Stable. 2. Elevated right copula of diaphragm. Unchanged. 3. Haziness/atelectasis seen in the left lower lobe. Less prominent than prior study. Interval improvement. 4. Small left pleural effusion, interval decrease (regressive). Electronically signed by Ameya Vincent 01-13-2025 06:18 AM
--- NOTE | 2025-01-13 07:33 | Electrocardiogram Report ---
Test Reason : Blood Pressure : */* mmHG Vent. Rate : 63 BPM Atrial Rate : 63 BPM P-R Int : 190 ms QRS Dur : 170 ms QT Int : 458 ms P-R-T Axes : * 166 -14 degrees QTcB Int : 468 ms Normal sinus rhythm Right bundle branch block Left posterior fascicular block Bifascicular block Cannot rule out Inferior infarct , age undetermined Abnormal ECG Confirmed by Kvng Reyes ([id number]) on 01/13/2025 7:33:06 AM Referred By: REFERRED SELF Confirmed By: Kvng Reyes
--- NOTE | 2025-01-13 07:34 | Electrocardiogram Report ---
Test Reason : Blood Pressure : */* mmHG Vent. Rate : 165 BPM Atrial Rate : 133 BPM P-R Int : 128 ms QRS Dur : 144 ms QT Int : 336 ms P-R-T Axes : -27 161 -16 degrees QTcB Int : 556 ms Atrial fibrillation Right bundle branch block Left posterior fascicular block Bifascicular block Abnormal ECG Confirmed by Kvng Reyes ([id number]) on 01/13/2025 7:34:06 AM Referred By: REFERRED SELF Confirmed By: Kvng Reyes
[2025-01-13] MEDS ORDERED: ACETAMINOPHEN 325 MG TAB PO PRN (08:40)
[2025-01-13] MEDS ORDERED: GLUCAGON FOR INJ 1 MG VIAL SQ PRN (08:40)
[2025-01-13] MEDS ORDERED: DEXTROSE 50% 50 ML SYRINGE IV PRN (08:40)
[2025-01-13] MEDS ORDERED: GLUCOSE 10 TAB/TUBE PO PRN (08:40)
[2025-01-13] MEDS ORDERED: GLUCOSE 40% GEL 15 GM TUBE PO PRN (08:40)
[2025-01-13] MEDS ORDERED: ONDANSETRON INJ 2 MG/ML 2 ML VIAL IV PRN (08:40)
[2025-01-13] MEDS ORDERED: CARBOHYDRATES FOR HYPOGLYCEMIA PO PRN (08:40)
[2025-01-13] MEDS: POTASSIUM CHLORIDE 10 MEQ TABCR PO SCH (10:15)
[2025-01-13] MEDS: FUROSEMIDE 40 MG TAB PO SCH (10:15)
[2025-01-13] MEDS: ROSUVASTATIN CALCIUM 10 MG TAB PO SCH (10:15)
[2025-01-13] MEDS: METOPROLOL SUCC 50MG EXT REL TAB PO SCH (10:15)
[2025-01-13] MEDS: FINASTERIDE 5 MG TAB PO SCH (10:15)
[2025-01-13] MEDS: INSULIN ASPART PER UNIT CHARGE SC SCH (12:00)
--- NOTE | 2025-01-13 12:05 | Cardiology Consultation ---
Date of Consultation January 13, 2025 Assessment & Plan (1) Non-ST elevated myocardial infarction: (2) Atrial fibrillation with rapid ventricular response: (3) CAD (coronary artery disease): (4) Right bundle branch block: (5) Hypertension: (6) Heart failure with preserved ejection fraction: Plan 1. NSTEMI: Patient has elevation in his biomarkers consistent with myocardial injury. His presentation is nearly identical to that which occurred in October 2024. Curiously, he was in atrial fibrillation with rapid ventricular response on both occasions. He is known to have significant coronary disease including prior intervention to the right coronary and chronic total occlusion of the left circumflex. My suspicion is this is related to demand ischemia from paroxysmal atrial fibrillation, high ventricular rates and hypertension. He was not treated for an acute coronary syndrome. However, his symptoms resolved entirely when he returned to sinus rhythm. Less likely would be an acute coronary syndrome, but there was no changes in his EKG to suggest any culprit vessel. Possibly the circumflex although this appeared occluded at the last evaluation. I think we will put him back on a heparin infusion for 24 hours. Will reinstitute Plavix therapy as well. Will continue a lower dose of metoprolol to facilitate the addition of amiodarone. 2. Coronary artery disease: Multiple prior percutaneous intervention to the right coronary artery. Chronic total occlusion of the left circumflex. Plavix recently discontinued due to concerns over bruising and weakness. However, I think given his current presentation we will restart Plavix. Will continue beta-blockade. Will continue high-dose rosuvastatin. 3. Atrial fibrillation: This is a second presentation with atrial fibrillation and rapid ventricular rates. I think this is the likely precipitant for his i schemia. He underwent left atrial appendage occlusion due to concerns over gait instability and high risk for bleeding. He should be on some antiplatelet therapy as a result. Will restart his Plavix. Will put him on a heparin infusion temporarily primarily for the NSTEMI. I think he would benefit from rhythm control given his recurrent events. Will start him on low-dose amiodarone. Will reduce metoprolol in the hopes of avoiding severe bradycardia. 4. Right bundle branch block: Chronic. Normal MN interval. Will need to be cautious with institution of amiodarone. 5. Right ventricular dysfunction: Noted on his echocardiogram in October. No current signs suggestive of RV failure. No lower extremity edema. 6. Hypertension: Mildly elevated blood pressure. This likely contributes to increased myocardial oxygen demand and ischemia especially in the setting of rapid atrial fibrillation. I think we should restart his losartan and discontinue his Lasix. Perhaps he could take the diuretic on a as needed basis. Will need to be cautious given his reports of orthostatic hypotension. No immediate plans for repeat coronary angiography. Will trend his biomarkers. He is also very debilitated and likely needs OT and PT evaluation. History of Present Illness Reason for Consultation: Atrial fibrillation, chest pain, NSTEMI Requesting Physician: Otoniel Attending Physician: Gaetano Frederick MD History of Present Illness The patient is an 84-year-old gentleman evaluated at our facility in October of this year for an NSTEMI and atrial fibrillation. At that time he underwent cardiac catheterization revealing what appeared to be a chronic total occlusion of the left circumflex. He presented in atrial fibrillation that time and had symptoms of chest discomfort. Based on his anatomy, resolution of symptoms and good LV systolic function he was managed medically at that time. Due to his history of ambulatory dysfunction and falls he was also referred for possible left atrial appendage occlusion which occurred on 12/21/2024. Recently he has had some worsening weakness and significant bruising in the left hip and leg. 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 The patient states that he was feeling well last evening while watching TV. He noticed the sudden onset of left upper chest and left arm discomfort. At a certain point his notified EMS and he was brought to our facility. However, his symptoms began approximately 3 hours prior to arrival at the emergency room. He was not aware of any palpitations or rapid heartbeat at that time. He denied dizziness, lightheadedness or dyspnea. He states that the symptoms are similar to what he is experienced in the past. At our facility he was found to be in atrial fibrillation and a rapid ventricular rate. Amiodarone had been administered en route and the patient received a single dose of diltiazem in the emergency room. He eventually converted to sinus rhythm 1 hour after admission. He feels that his symptoms of chest discomfort are resolved around that time as well. Currently feeling well. No recurrent symptoms of chest discomfort since initial arrival. In general he is very sedentary. For a long time he has had some gait instability and limits his activity to inside the house. More recently has had difficulty due to leg weakness and back discomfort. Again, he denied dizziness or lightheadedness. Perhaps some mild orthostatic type symptoms when getting up rapidly. He previously had lower extremity edema which seems stable currently. Weight has been stable. No orthopnea. He does complain of some bruising in the right thigh, right groin and right hip. Allergies Allergy/AdvReac Type Severity Reaction Status Date / Time Iodinated Contrast Media Allergy Severe HIVES Verified 08/22/19 12:45 amoxicillin Allergy Intermediate HIVES Verified 10/14/24 13:18 bee venom protein (honey bee) Allergy Intermediate HIVES Verified 08/22/19 12:45 cortisone Allergy Intermediate SKIN Verified 08/22/19 12:45 IRRITATION iodine Allergy Intermediate HIVES Verified 08/22/19 12:45 Penicillins Allergy Intermediate HIVES Verified 08/22/19 12:45 lorazepam AdvReac Mild MAKES HIM Verified 08/22/19 12:45 GOOFY Home Medications Medication Instructions Recorded Confirmed Type aspirin 81 mg tablet,delayed 0 mg PO HS 01/04/19 01/13/25 History release amitriptyline 100 mg tablet 100 mg PO HS 10/12/24 01/13/25 History finasteride 5 mg tablet 5 mg PO DAILY 10/12/24 01/13/25 History furosemide 40 mg tablet 40 mg PO QAM 10/12/24 01/13/25 History hydrocodone 5 mg-acetaminophen 325 0 tab PO Q12 10/12/24 01/13/25 History mg tablet lansoprazole 30 mg capsule,delayed 30 mg PO QAM 10/12/24 01/13/25 History release metformin 500 mg tablet 500 mg PO BID 10/12/24 01/13/25 History potassium chloride 10 mEq 10 meq PO BID 10/12/24 01/13/25 History capsule,extended release rosuvastatin 10 mg tablet 10 mg PO QAM 10/12/24 01/13/25 History metoprolol succinate 50 mg 50 mg PO QAM #30 tabs 10/14/24 01/13/25 Rx tablet,extended release 24 hr apixaban 5 mg tablet (Eliquis) 0 mg PO Q12H 01/13/25 01/13/25 History clopidogrel 75 mg tablet 75 mg PO DAILY 01/13/25 01/13/25 History losartan 50 mg tablet 25 mg PO QAM 01/13/25 01/13/25 History Patient History Surgical History History of elbow surgery History of cervical spinal arthrodesis History of cholecystectomy Family History Mother Cardiac disorder Father Cardiac disorder Social History Smoking Status: Never smoker Second Hand Exposure: No; Do You Dip or Chew Tobacco: No; Hx Alcohol Use: No Hx Substance Use: No Preferred Language: Cymraes Communication Ability: Effective Reporting Coordinator Required: No Beliefs That Will Affect Care: None Current Living Situation: Spouse Feels Safe at Home: Yes Assistive Devices: Walker Review of Systems Review of Systems: Per HPI Physical Exam Physical Exam: The patient is alert and oriented. Mood and affect appeared normal. He answered all questions appropriately. HEENT: Pupils are equal and reactive to light and accommodation. Extraocular movements are intact. The sclerae are anicteric. Neuro: Cranial nerves intact Lungs: Clear to auscultation bilaterally. He has good air movement without use of accessory muscles. No rales wheezes or rhonchi. Cardiac: Heart demonstrates a regular rate and rhythm. Normal S1 and S2. No murmurs on examination. Pulses: The patient has palpable radial pulses bilaterally that are equal in intensity. Palpable dorsalis pedis pulses bilaterally, right greater than left. Extremities: There was no evidence of hypoperfusion. There is no cyanosis or clubbing. Very mild ankle edema bilaterally. Skin: I did not appreciate any rashes on examination today. He has some ecchymosis along the right hip, the dependent portion of the inner right thigh and right groin. Results & Data Vital Signs (Past 12 Hours) Vital Signs Temp Pulse Pulse Pulse Resp BP BP 01/13/25 10:21 68 20 182/97 H 01/13/25 08:42 01/13/25 08:40 60 16 169/90 H 01/13/25 08:30 60 16 169/90 H 01/13/25 08:08 61 01/13/25 08:04 60 18 162/82 H 01/13/25 06:00 66 18 162/87 H 01/13/25 04:54 63 01/13/25 04:51 62 28 H 01/13/25 04:50 177/88 H 01/13/25 04:50 177/88 H 01/13/25 04:47 63 18 01/13/25 04:30 155/85 H 01/13/25 04:30 155/85 H 01/13/25 04:25 108/77 01/13/25 04:24 90 28 H 108/77 01/13/25 04:12 154 H 34 H 01/13/25 04:07 36.7 C 153 H 28 H 161/126 H 01/13/25 04:07 01/13/25 04:07 36.7 C 146 H 30 H 161/126 H 01/13/25 04:07 01/13/25 04:04 166 H 01/13/25 04:02 161/126 H 01/13/25 04:02 161/126 H 01/13/25 04:02 161/126 H 01/13/25 04:00 136 H 30 H Pulse Ox O2 Del Method 01/13/25 10:21 98 Room Air 01/13/25 08:42 Room Air 01/13/25 08:40 95 Room Air 01/13/25 08:30 95 Room Air 01/13/25 08:08 01/13/25 08:04 99 Room Air 01/13/25 06:00 96 Room Air 01/13/25 04:54 01/13/25 04:51 94 01/13/25 04:50 01/13/25 04:50 01/13/25 04:47 95 Room Air 01/13/25 04:30 01/13/25 04:30 01/13/25 04:25 01/13/25 04:24 95 Room Air 01/13/25 04:12 93 01/13/25 04:07 95 Room Air 01/13/25 04:07 Room Air 01/13/25 04:07 95 Room Air 01/13/25 04:07 Room Air 01/13/25 04:04 01/13/25 04:02 01/13/25 04:02 01/13/25 04:02 01/13/25 04:00 97 Laboratory Results Abnormal Lab Results 01/13/25 01/13/25 01/13/25 04:06 04:07 08:11 WBC 9.78 RBC 5.08 Hgb 15.2 POC Hgb 14.6 Hct 46.4 POC Hct 43 MCV 91.3 MCH 29.9 MCHC 32.8 RDW Std Deviation 43.9 RDW Coeff of Tory 13.1 Plt Count 179 MPV 10.3 Immature Gran % (Auto) 1.2 Neut % (Auto) 59.6 Lymph % (Auto) 29.9 Love % (Auto) 8.6 Eos % (Auto) 0.5 Baso % (Auto) 0.2 Neut # (Auto) 5.83 Lymph # (Auto) 2.92 Love # (Auto) 0.84 H Eos # (Auto) 0.05 Baso # (Auto) 0.02 Immature Gran # (Auto) 0.12 PT 10.7 INR 1.0 APTT 23 PTT Ratio 0.9 POC Sodium 140 Sodium 139 POC Potassium 4.1 Potassium 3.9 POC Chloride 105 Chloride 106 Carbon Dioxide 26 POC Total CO2 24 Anion Gap 7 POC Anion Gap 16.0 POC BUN 27 H BUN 27 H Creatinine 0.99 POC Creatinine 1.0 Est Cr Clr Drug Dosing 64.8 eGFR 74.19 BUN/Creatinine Ratio 27.3 H Glucose 214 H POC Glucose POC Glucose (other) 210 H Calcium 8.4 L POC Ioniz Calcium Mil 1.05 L Magnesium 1.9 Total Bilirubin 0.4 AST 11 L ALT 14 Alkaline Phosphatase 76 Troponin I High Sens 17.9 1226.9 H* D Total Protein 6.2 Albumin 3.5 Globulin 2.7 Albumin/Globulin Ratio 1.3 Lipase 14 01/13/25 09:07 WBC RBC Hgb POC Hgb Hct POC Hct MCV MCH MCHC RDW Std Deviation RDW Coeff of Tory Plt Count MPV Immature Gran % (Auto) Neut % (Auto) Lymph % (Auto) Love % (Auto) Eos % (Auto) Baso % (Auto) Neut # (Auto) Lymph # (Auto) Love # (Auto) Eos # (Auto) Baso # (Auto) Immature Gran # (Auto) PT INR APTT PTT Ratio POC Sodium Sodium POC Potassium Potassium POC Chloride Chloride Carbon Dioxide POC Total CO2 Anion Gap POC Anion Gap POC BUN BUN Creatinine POC Creatinine Est Cr Clr Drug Dosing eGFR BUN/Creatinine Ratio Glucose POC Glucose 114 H POC Glucose (other) Calcium POC Ioniz Calcium Mil Magnesium Total Bilirubin AST ALT Alkaline Phosphatase Troponin I High Sens Total Protein Albumin Globulin Albumin/Globulin Ratio Lipase Diagnostic Findings Cardiac catheterization 10/12/2024: LM -pinchedangulated takeoff, normal caliber, 30% mid eccentric plaque LAD -medium caliber, 40% proximal stenosis mild mid segment disease with some myocardial bridging at angulated segment. Distal vessel small mild diffuse disease and tapers to apex. Small to medium caliber D1 30% ostial, medium D2 50 % ostial. Circumflex -small caliber, 100% latemid occlusion. OM 2 fills partially retrograde via left to left collaterals. RCA -dominant, large caliber, 20% ostial, 40 to 50% earlymid stenosis just proximal to mid segment stent. Mid segment stent patent with 40% ISR. Mid to distal stents widely patent distal segment stents widely patent. Large PDA and PLBs without significant disease. Echocardiogram 10/12/2024: Normal LV systolic function with ejection fraction 50 to 55%. Moderate LVH. Grade 1 motion abnormality involving mild inferolateral hypokinesis. Dilated right ventricle with severe dysfunction. No significant valvular heart disease. Chest x-ray 01/13/2025: Cardiomegaly with hilar vascular congestion unchanged. No other acute findings. ECG Additional Comments: Normal sinus rhythm with right bundle branch block PG Care Time/CCT Total # of Minutes Spent Total Time Spent with Patient: Total time spent is greater than 50% in coordination of care (as documented) at patient's floor/unit and/or counseling patient: Coding Level of Care Code 48307 INT INP/OBS CARE 375MIN Diagnoses Non-ST elevated myocardial infarction I21.4 Atrial fibrillation with rapid ventricular response I48.91 CAD (coronary artery disease) I25.10 Right bundle branch block I45.10 Hypertension I10 Heart failure with preserved ejection fraction I50.30
--- NOTE | 2025-01-13 12:10 | Electrocardiogram Report ---
Test Reason : Blood Pressure : */* mmHG Vent. Rate : 59 BPM Atrial Rate : 59 BPM P-R Int : 140 ms QRS Dur : 164 ms QT Int : 468 ms P-R-T Axes : * 102 7 degrees QTcB Int : 463 ms Sinus bradycardia Right bundle branch block Cannot rule out Inferior infarct (cited on or before 13-Jan-2025) Abnormal ECG When compared with ECG of 13-Jan-2025 04:53, Left posterior fascicular block is no longer Present Confirmed by Kvng Reyes ([id number]) on 01/13/2025 12:09:42 PM Referred By: REFERRED SELF Confirmed By: Kvng Reyes
[2025-01-13] MEDS ORDERED: Heparin IV Adult Wt-Based Low-Dose *NO* INITIAL Bolus Protocol IV STA (12:35)
[2025-01-13] MEDS: HEPARIN 25000 UNIT/500 ML D5W 25,000 UNITS/500 ML BAG IV SCH (13:13)
--- NOTE | 2025-01-13 13:54 | Hospitalist Progress Note ---
Date of Service January 13, 2025 Assessment & Plan (1) Atrial fibrillation with rapid ventricular response: (2) Hypertension: (3) CAD (coronary artery disease): (4) Diabetes mellitus: (5) CHF (congestive heart failure): (6) GERD (gastroesophageal reflux disease): Plan Tra Miranda is an 84-year-old male with a [facility] CAD s/p stent,atrial fibrillation, s/p Watchman 12/21/2024, at which time Eliquis was stopped, diabetes, contrast allergy Due to excessive bruising he had Plavix and losartan stopped on 01/09/2025. he's been having anorexia for several weeks; and since 2-3 weeks ago, been having decreasing exercise tolerance. on 01/12/2025 evening, has chest pain and palpitations, and received amiodarone 150 mg, aspirin 324 mg, and fentanyl 50 mcg IV en route to our ED by EMS. Upon arrival to the emergency department, patient was found to be in A-fib with RVR and aberrancy. He was given Cardizem 20 mg IV, and after about 1 hour, his heart rhythm and rate changed to normal sinus rhythm in the low 60s. He reports taking his medications as directed. Cardiology was contacted by ED, Dr. Reyes suspect chest pain is driving by A-fib Atrial fibrillation with RVR/hypertension/CAD/CHF- s/p watchman on 12/21 and off eliquis since s/p cardizem 20mg and amiodarone. and converted to sinus cardiology started amiodarone 400mg BID. that will need to be taper and then need LFT f/u troponin elevation, f/u on duplex ultrasound to r/o DVT severe contrast allergy; f/u on V/Q scan hx of CAD. he was admitted in October 2024 and s/p C at that time, found chronically occluded left circumflex his old stents was patent per October 2024 [facility] crestor dose increased from 10mg to 20mg he's off metoprolol anorexia, he's deferring ensure supplement, thiamine to prevent wernicke, may benefit from remeron. her daughter was updated at bedside deconditoning, PT and OT to evaluate him. been having worsening exercise tolerance Diabetes mellitus- Hold metformin Placed on Accu-Cheks with NovoLog SSI GERD-Continue lansoprazole/pantoprazole daily Pain control- Acetaminophen 650 mg by mouth every 6 hours as needed for mild pain or fever Hydrocodone/acetaminophen 5/325, 1 every 6 hours as needed for moderate pain Hyperlipidemia-Continue rosuvastatin Admission and Anticipated Discharge Date Admission Date: January 13, 2025 Subjective left side chest pain since yesterday; troponin of 1226. cardiology suspect this is related to A-fib. does not suspect acute ACS duplex uS to r/o DVT per his daughter; been having worsening exercise tolerance for 2-3 weeks also been having anorexia for several months. Review of Systems Review of Systems: Constitutional: fatigue; weakness Cardiovascular: chest pain; dyspnea on exertion; + for A-fib s/p watchman lung: no coughing;no wheezing Gastrointestinal: + for anorexia; no melena. No Nausea, No Vomiting, No Diarrhea, No Constipation, No Pain, No Heartburn Musculoskeletal: + for briusing int the right leg Skin: + for easy bleeding or bruising Neuro: negative for confusion. Physical Exam Physical Exam: VITALS: Reviewed. WEIGHT/BMI reviewed. GEN: Healthy appearing, well-developed, NAD. -Head: NC/AT; NECK: Supple, with no masses. CV: RRR, no m/r/g. LUNGS: CTAB, no w/r/c. on room air ABD: Soft, NT/ND, NBS, no masses or organomegaly. MSK: + for bruising on the right leg. EXT: No clubbing, cyanosis, or edema. NEURO: AAox3 Results & Data Results & Data Vital Signs (Past 12 Hours) Vital Signs Temp Pulse Pulse Pulse Resp BP BP 01/13/25 10:21 68 20 182/97 H 01/13/25 08:42 01/13/25 08:40 60 16 169/90 H 01/13/25 08:30 60 16 169/90 H 01/13/25 08:08 61 01/13/25 08:04 60 18 162/82 H 01/13/25 06:00 66 18 162/87 H 01/13/25 04:54 63 01/13/25 04:51 62 28 H 01/13/25 04:50 177/88 H 01/13/25 04:50 177/88 H 01/13/25 04:47 63 18 01/13/25 04:30 155/85 H 01/13/25 04:30 155/85 H 01/13/25 04:25 108/77 01/13/25 04:24 90 28 H 108/77 01/13/25 04:12 154 H 34 H 01/13/25 04:07 36.7 C 153 H 28 H 161/126 H 01/13/25 04:07 01/13/25 04:07 36.7 C 146 H 30 H 161/126 H 01/13/25 04:07 01/13/25 04:04 166 H 01/13/25 04:02 161/126 H 01/13/25 04:02 161/126 H 01/13/25 04:02 161/126 H 01/13/25 04:00 136 H 30 H Pulse Ox O2 Del Method 01/13/25 10:21 98 Room Air 01/13/25 08:42 Room Air 01/13/25 08:40 95 Room Air 01/13/25 08:30 95 Room Air 01/13/25 08:08 01/13/25 08:04 99 Room Air 01/13/25 06:00 96 Room Air 01/13/25 04:54 01/13/25 04:51 94 01/13/25 04:50 01/13/25 04:50 01/13/25 04:47 95 Room Air 01/13/25 04:30 01/13/25 04:30 01/13/25 04:25 01/13/25 04:24 95 Room Air 01/13/25 04:12 93 01/13/25 04:07 95 Room Air 01/13/25 04:07 Room Air 01/13/25 04:07 95 Room Air 01/13/25 04:07 Room Air 01/13/25 04:04 01/13/25 04:02 01/13/25 04:02 01/13/25 04:02 01/13/25 04:00 97 Laboratory Results Laboratory Results - last 72 hr 01/13/25 01/13/25 01/13/25 04:06 04:07 08:11 WBC 9.78 RBC 5.08 Hgb 15.2 POC Hgb 14.6 Hct 46.4 POC Hct 43 MCV 91.3 MCH 29.9 MCHC 32.8 RDW Std Deviation 43.9 RDW Coeff of Tory 13.1 Plt Count 179 MPV 10.3 Immature Gran % (Auto) 1.2 Neut % (Auto) 59.6 Lymph % (Auto) 29.9 [place] % (Auto) 8.6 Eos % (Auto) 0.5 Baso % (Auto) 0.2 Neut # (Auto) 5.83 Lymph # (Auto) 2.92 [place] # (Auto) 0.84 H Eos # (Auto) 0.05 Baso # (Auto) 0.02 Immature Gran # (Auto) 0.12 PT 10.7 INR 1.0 APTT 23 PTT Ratio 0.9 POC Sodium 140 Sodium 139 POC Potassium 4.1 Potassium 3.9 POC Chloride 105 Chloride 106 Carbon Dioxide 26 POC Total CO2 24 Anion Gap 7 POC Anion Gap 16.0 POC BUN 27 H BUN 27 H Creatinine 0.99 POC Creatinine 1.0 Est Cr Clr Drug Dosing 64.8 eGFR 74.19 BUN/Creatinine Ratio 27.3 H Glucose 214 H POC Glucose POC Glucose (other) 210 H Calcium 8.4 L POC Ioniz Calcium Mil 1.05 L Magnesium 1.9 Total Bilirubin 0.4 AST 11 L ALT 14 Alkaline Phosphatase 76 Troponin I High Sens 17.9 1226.9 H* D Total Protein 6.2 Albumin 3.5 Globulin 2.7 Albumin/Globulin Ratio 1.3 Lipase 14 01/13/25 09:07 WBC RBC Hgb POC Hgb Hct POC Hct MCV MCH MCHC RDW Std Deviation RDW Coeff of Tory Plt Count MPV Immature Gran % (Auto) Neut % (Auto) Lymph % (Auto) [place] % (Auto) Eos % (Auto) Baso % (Auto) Neut # (Auto) Lymph # (Auto) [place] # (Auto) Eos # (Auto) Baso # (Auto) Immature Gran # (Auto) PT INR APTT PTT Ratio POC Sodium Sodium POC Potassium Potassium POC Chloride Chloride Carbon Dioxide POC Total CO2 Anion Gap POC Anion Gap POC BUN BUN Creatinine POC Creatinine Est Cr Clr Drug Dosing eGFR BUN/Creatinine Ratio Glucose POC Glucose 114 H POC Glucose (other) Calcium POC Ioniz Calcium Mil Magnesium Total Bilirubin AST ALT Alkaline Phosphatase Troponin I High Sens Total Protein Albumin Globulin Albumin/Globulin Ratio Lipase Medications Administered Current Inpatient Medications Acetaminophen (Acetaminophen 325 Mg Tab) 650 mg PO Q4H PRN PRN Reason: Pain or Fever Stop: 02/12/25 08:39 Hydrocodone Bitart/Acetaminophen (Hydrocodone/Acetamophen 5/325mg Tab) 1 tab PO Q6H PRN PRN Reason: Moderate Pain (Scale 4, 5, 6) Stop: 01/27/25 08:39 Amiodarone HCl (Amiodarone 200 Mg Tab) 400 mg PO BIDM [facility] Stop: 02/12/25 16:59 Amitriptyline HCl (Amitriptyline Hcl 100 Mg Tab) 100 mg PO HS [facility] Stop: 02/12/25 20:59 Aspirin (Aspirin 81 Mg Ectab) 81 mg PO HS [facility] Stop: 02/12/25 20:59 Clopidogrel Bisulfate (Clopidogrel Bisulfate 75 Mg Tab) 75 mg PO QAM [facility] Stop: 02/13/25 08:59 Dextrose (Dextrose 50% 50 Ml Syringe) 25 - 50 ml IV UD PRN; Protocol PRN Reason: Hypoglycemia Protocol Stop: 02/12/25 08:39 Finasteride (Finasteride 5 Mg Tab) 5 mg PO DAILY [facility] Stop: 02/12/25 08:59 Last Admin: 01/13/25 10:15 Dose: 5 mg Glucagon (Glucagon For Inj 1 Mg Vial) 1 mg SQ UD PRN; Protocol PRN Reason: Hypoglycemia Protocol Stop: 02/12/25 08:39 Glucose (Glucose 40% Gel 15 Gm Tube) 15 - 30 gm PO UD PRN; Protocol PRN Reason: Hypoglycemia Protocol Stop: 02/12/25 08:39 Glucose (Glucose 10 Tab/Tube) 4 - 8 tab PO UD PRN; Protocol PRN Reason: Hypoglycemia Protocol Stop: 02/12/25 08:39 Thiamine HCl 200 mg/ Sodium (Chloride) 52 mls @ 210 [facility] Stop: 02/13/25 08:59 Heparin Sodium/Dextrose (Heparin 30859 Unit/500 Ml D5w) 25,000 units in 500 mls @ 20 mls/hr IV .Q24H [facility]; Protocol Stop: 02/12/25 12:59 Last Admin: 01/13/25 13:13 Dose: 1,000 units/hr, 20 mls/hr Insulin Aspart (Insulin Aspart Per Unit Charge) 0 units SC ACHS [facility] Stop: 02/12/25 11:29 Last Admin: 01/13/25 12:00 Dose: Not Given Losartan Potassium (Losartan Potassium 25 Mg Tab) [facility] Stop: 02/12/25 12:44 Metoprolol Succinate (Metoprolol Succ 25mg Ext Rel Tab) 25 mg PO QAM [facility] Stop: 02/13/25 08:59 Miscellaneous (Carbohydrates For Hypoglycemia ) 15 - 30 gm PO UD PRN PRN Reason: Hypoglycemia Protocol Stop: 02/12/25 08:39 Multivitamins/Minerals (Cerovite Adv Formula Tab) [facility] Stop: 02/13/25 08:59 Ondansetron HCl (Ondansetron Inj 2 Mg/Ml 2 Ml Vial) 4 mg IV Q6H PRN PRN Reason: Nausea Stop: 02/12/25 08:39 Pantoprazole Sodium (Pantoprazole 40 Mg Tab) [facility] Stop: 02/13/25 08:59 Potassium Chloride (Potassium Chloride 10 Meq Tabcr) 10 meq PO BID [facility] Stop: 02/12/25 08:59 Last Admin: 01/13/25 10:15 Dose: 10 meq Rosuvastatin Calcium (Rosuvastatin Calcium 20 Mg Tab) [facility] Stop: 02/13/25 08:59 PG Care Time/CCT Total # of Minutes Spent Total Time Spent with Patient: Total time spent is greater than 50% in coordination of care (as documented) at patient's floor/unit and/or counseling patient: Coding Level of Care Code 32429 SUB INP/OBS CARE 2/35MIN Diagnoses Atrial fibrillation with rapid ventricular response I48.91 Hypertension I10 CAD (coronary artery disease) I25.10 Diabetes mellitus E11.9 CHF (congestive heart failure) I50.9 GERD (gastroesophageal reflux disease) K21.9 Time Spent (min) 35
[2025-01-13] MEDS: CLOPIDOGREL BISULFATE 300 MG TAB PO ONE (14:32)
[2025-01-13] MEDS: LOSARTAN POTASSIUM 25 MG TAB PO SCH (14:32)
[2025-01-13] MEDS: AMIODARONE 200 MG TAB PO SCH (16:35)
[2025-01-13 20:24] LABS: ANTI-Xa, UFH(UnfractionatedHep < 0.10 IU/ml (0.3-0.7)
[2025-01-13] MEDS: AMITRIPTYLINE HCL 100 MG TAB PO SCH (20:53)
[2025-01-13] MEDS: ASPIRIN 81 MG ECTAB PO SCH (20:53)
[2025-01-13] MEDS ORDERED: Nursing to Pharmacy Communication STA (21:03)
[2025-01-13] MEDS: HEPARIN IV BOLUS 4,500 UNITS in SYRINGE 0 ML IV ONE (21:58)
[2025-01-14 02:09] LABS: ANTI-Xa, UFH(UnfractionatedHep 0.89 IU/ml (0.3-0.7)
[2025-01-14] MEDS: HYDROCODONE/ACETAMOPHEN 5/325MG TAB PO PRN (02:53)
[2025-01-14] MEDS: HEPARIN SOD (PORCINE) 1000 UNIT/ML IV ONE (05:50)
[2025-01-14 07:38] LABS: Hematocrit (blood only) 39.5 % (42.0-52.0); Hemoglobin 13.5 g/dl (14.0-18.0); Immature Granulocytes # (auto) 0.07 K/uL (0.01-0.20); Immature Granulocytes % (auto) 0.9 %; Mean Corpuscular Hemoglobin 30.7 pg (25.0-34.0); Mean Corpuscular Volume 89.8 fL (80.0-100.0); Platelet Count 145 K/uL (130-400); RDW Standard Deviation 42.7 fL (36.4-46.3); Red Blood Count 4.40 M/uL (4.70-6.10); White Blood Count 8.21 K/ul (4.8-10.8)
[2025-01-14] MEDS: THIAMINE HCL 200 MG in SODIUM CHLORIDE 0.9% 50 ML IV SCH (07:49)
[2025-01-14] MEDS: CLOPIDOGREL BISULFATE 75 MG TAB PO SCH (07:50)
[2025-01-14] MEDS: METOPROLOL SUCC 25MG EXT REL TAB PO SCH (07:50)
[2025-01-14] MEDS: CEROVITE ADV FORMULA TAB PO SCH (07:50)
[2025-01-14] MEDS: ROSUVASTATIN CALCIUM 20 MG TAB PO SCH (07:50)
[2025-01-14 08:08] LABS: Hemoglobin A1C 5.9 % (4.5-5.6)
[2025-01-14 08:09] LABS: ANTI-Xa, UFH(UnfractionatedHep 0.46 IU/ml (0.3-0.7)
[2025-01-14 08:14] LABS: Anion Gap 5.0 (3-11); Blood Urea Nitrogen 24.0 mg/dl (6-23); Calcium 8.3 mg/dl (8.6-10.3); Carbon Dioxide 28.0 mmol/L (21-32); Chloride 105.0 mmol/L (98-107); Creatinine Clr Calc Pharmacy 63.6 ml/min; Glucose 151.0 mg/dl (70-99(Fasting)); Magnesium 1.9 mg/dl (1.7-2.4); Potassium 4.2 mmol/L (3.5-5.1); Sodium 138.0 mmol/L (136-145)
[2025-01-14] MEDS: FUROSEMIDE 40 MG/4 ML VIAL IV ONE (09:13)
--- NOTE | 2025-01-14 10:46 | Hospitalist Progress Note ---
Date of Service January 14, 2025 Assessment & Plan (1) Atrial fibrillation with rapid ventricular response: Plan: Present on admission. He has since converted to sinus bradycardia. Cardiology consultation and recommendations appreciated. Metoprolol has been down titrated this admission. He is currently on a heparin drip which will probably be discontinued today, January 14. (2) Hypertension: Plan: Stable. Continue current medical management (3) CAD (coronary artery disease): Plan: Troponin levels are elevated but no chest pain and no acute EKG changes. No evidence of acute coronary syndrome (4) Diabetes mellitus: Plan: ADA diet. Sliding scale coverage. Continue current medical management (5) CHF (congestive heart failure): Plan: He appears to currently have acute on chronic diastolic CHF. Parenteral Lasix ordered x 1 dose today, January 14. Will monitor urine output results. BNP is elevated at 285 Plan OT and PT evaluations have been requested. This will determine his disposition, whether to home or SNF. Admission and Anticipated Discharge Date Admission Date: January 13, 2025 Subjective Alert and oriented. No distress. Cardiology consultation and recommendations noted. He remains on a heparin drip that will probably be discontinued today, January 14. He has converted back to sinus bradycardia with heart rate in the 50- 60 range. Metoprolol has been down titrated this admission. Ventilation/perfusion scan was previously ordered and is pending. Troponin remains elevated but no evidence of acute coronary syndrome at this time. OT and PT assessments requested to determine ultimate disposition. Review of Systems 2 Review of Systems: Constitutionalno fever or chills ENTno blurred vision, no double vision, no epistaxis, no sore throat Respiratoryno cough, no wheezing, no shortness of breath Cardiacno palpitations, no chest pain, no syncope [place] nausea, vomiting, diarrhea, melena, hematochezia GUno urinary retention, no urinary incontinence, no dysuria, no hematuria Musculoskeletalno joint pain, no muscle tenderness Skinno bruising, no rashes, no pruritus Neurogeneralized weakness. Ambulatory dysfunction Psychno depression, no anxiety Physical Exam 2 Physical Exam: General-alert and oriented x3, no fever, no chills HEENT-head atraumatic and normocephalic, pupils equal and reactive to light, extraocular muscles intact Neck-no lymphadenopathy or thyromegaly, trachea midline Chest-clear to auscultation. No rales, wheezing or rhonchi Cardiac-regular rate and rhythm although bradycardic. Normal S1 and S2 Abdomen-normal bowel sounds, no hepatosplenomegaly Extremities-no cyanosis, clubbing, or edema Neuro-cranial nerves II through XII intact, motor and sensory function within normal limits, strength symmetrical with generalized weakness and associated ambulatory dysfunction, no focal deficits Psych-normal affect, normal mood Results & Data Results & Data Vital Signs (Past 12 Hours) Vital Signs Temp Pulse Pulse Resp BP Pulse Ox O2 Del Method 01/14/25 09:35 52 L 01/14/25 09:35 Room Air 01/14/25 07:53 36.3 C L 53 L 18 173/84 H 93 Room Air 01/14/25 03:27 36.6 C 53 L 16 183/86 H 91 Room Air 01/13/25 23:23 36.7 C 69 18 162/76 H 95 Room Air Laboratory Results 01/14/25 07:14 01/14/25 07:14 PG Care Time/CCT Total # of Minutes Spent Total Time Spent with Patient: Total time spent is greater than 50% in coordination of care (as documented) at patient's floor/unit and/or counseling patient: Coding Level of Care Code 05734 SUB INP/OBS CARE 3/50MIN Diagnoses Atrial fibrillation with rapid ventricular response I48.91 Hypertension I10 CAD (coronary artery disease) I25.10 Diabetes mellitus E11.9 CHF (congestive heart failure) I50.9
--- NOTE | 2025-01-14 11:04 | Nuclear Medicine Report ---
NM pul perfusion HISTORY: 84 years-old Male chest pain, r/o DVT acute chest pain with shortness of breath COMPARISON: Chest radiograph 01/13/2025, chest CT 09/04/2017. TECHNIQUE: Nuclear medicine perfusion study was obtained following the intravenous administration of technetium 99 MAA. FINDINGS: Chest radiograph obtained yesterday demonstrates cardiomegaly with right hemidiaphragmatic elevation and bilateral mixed interstitial/alveolar opacities with probable small pleural effusions. Chronic re ticulation/fibrotic changes. There are no large segmental perfusion defects identified. There is however central clumping of the r adiotracer secondary to the chronic lung disease. IMPRESSION: Low probability for pulmonary embolus. ACT 112: Negative or not required by law. The above report was generated using voice recognition software. It may contain grammatical, syntax o r spelling errors. Electronically signed by: Josep Portillo M.D. 01/14/2025 11:01 AM
--- NOTE | 2025-01-14 11:43 | Electrocardiogram Report ---
Test Reason : Blood Pressure : */* mmHG Vent. Rate : 53 BPM Atrial Rate : 53 BPM P-R Int : 182 ms QRS Dur : 180 ms QT Int : 480 ms P-R-T Axes : 26 102 24 degrees QTcB Int : 450 ms Sinus bradycardia Right bundle branch block Possible Inferior infarct (cited on or before 13-Jan-2025) T wave abnormality, consider lateral ischemia Abnormal ECG When compared with ECG of 13-Jan-2025 09:12, No significant change was found Confirmed by Kvng Reyes ([id number]) on 01/14/2025 11:43:02 AM Referred By: REFERRED SELF Confirmed By: Kvng Reyes
--- NOTE | 2025-01-14 15:31 | Cardiology Progress Note ---
Date of Service January 14, 2025 Assessment & Plan (1) Non-ST elevated myocardial infarction: (2) Atrial fibrillation with rapid ventricular response: (3) CAD (coronary artery disease): (4) Right bundle branch block: (5) Hypertension: (6) Heart failure with preserved ejection fraction: Plan 1. NSTEMI: Biomarkers trending downwards. No recurrent symptoms. On heparin for 24 hours now discontinued. Also restarted on Plavix. My impression is that his NSTEMI is type II, related to atrial fibrillation and high ventricular rates. No current exertional symptoms of coronary disease although very limited. I will continue dual antiplatelet therapy and we will make some effort to reduce episodes of atrial fibrillation. 2. Coronary artery disease: Multiple prior percutaneous intervention to the right coronary artery. Chronic total occlusion of the left circumflex. He will continue with dual antiplatelet therapy at this time. Also continue high-dose rosuvastatin. 3. Atrial fibrillation: Started on amiodarone. Will continue 400 mg twice daily for another 6 days. At that time, his dose can be reduced to 200 mg daily. Left atrial appendage occlusion completed about a month ago. He will continue on dual antiplatelet therapy at this time. 4. Right bundle branch block: Chronic. Normal NC interval. Will need to be cautious with institution of amiodarone. 5. Right ventricular dysfunction: Noted on his echocardiogram in October. No current signs suggestive of RV failure. No lower extremity edema. 6. Hypertension: Improved. Currently on losartan and metoprolol. He did have some orthostatic type symptoms at 1 point today. He is reported this in the outpatient setting as well. Will need to monitor this while he is an inpatient. 7. Heart failure with preserved ejection fraction: Some evidence of pulmonary vascular congestion on exam. He got a dose of Lasix this morning. Clinically doing well. Will monitor his exam. Unclear if he will need a daily diuretic. This may worsen any orthostatic hypotension. Admission and Anticipated Discharge Date Admission Date: January 13, 2025 Subjective This afternoon the patient clinically feeling well. He reports being ambulatory with physical therapy. He denied any significant weakness. No recurrence of his chest pain. No breathing difficulty. No sense of palpitation. Some mild dizziness when getting off the table for his VQ scan. Review of Systems Review of Systems: Per HPI Physical Exam Physical Exam: The patient is alert and oriented. Mood and affect appeared normal. He answered all questions appropriately. HEENT: Pupils are equal and reactive to light and accommodation. Extraocular movements are intact. The sclerae are anicteric. Neuro: Cranial nerves intact Lungs: Crackles in the bases bilaterally. Normal respiratory effort. No expiratory wheezing. Cardiac: Heart demonstrates a regular rate and rhythm. Normal S1 and S2. No murmurs on examination. Pulses: The patient has palpable radial pulses bilaterally that are equal in intensity. Extremities: There was no evidence of hypoperfusion. There is no cyanosis or clubbing. Very mild ankle edema bilaterally. Skin: I did not appreciate any rashes on examination today. Results & Data Vital Signs (Past 12 Hours) Vital Signs Temp Pulse Pulse Resp BP Pulse Ox O2 Del Method 01/14/25 15:14 36.5 C 72 18 126/72 99 Room Air 01/14/25 11:25 36.4 C L 59 L 18 169/84 H 91 Room Air 01/14/25 09:35 52 L 01/14/25 09:35 Room Air 01/14/25 07:53 36.3 C L 53 L 18 173/84 H 93 Room Air Laboratory Results Abnormal Lab Results 01/13/25 01/13/25 01/13/25 16:26 19:19 20:17 WBC RBC Hgb Hct MCV MCH MCHC RDW Std Deviation RDW Coeff of Tory Plt Count MPV Immature Gran % (Auto) Neut % (Auto) Lymph % (Auto) [place] % (Auto) Eos % (Auto) Baso % (Auto) Neut # (Auto) Lymph # (Auto) [place] # (Auto) Eos # (Auto) Baso # (Auto) Immature Gran # (Auto) Heparin Anti-Xa, Unfract < 0.10 L Sodium Potassium Chloride Carbon Dioxide Anion Gap BUN Creatinine Est Cr Clr Drug Dosing eGFR BUN/Creatinine Ratio Glucose POC Glucose 115 H 127 H Estimat Average Glucose Hemoglobin A1c Calcium Phosphorus Magnesium Troponin I High Sens B-Natriuretic Peptide Albumin 01/14/25 01/14/25 01/14/25 01:23 07:14 07:17 WBC 8.21 RBC 4.40 L Hgb 13.5 L Hct 39.5 L MCV 89.8 MCH 30.7 MCHC 34.2 RDW Std Deviation 42.7 RDW Coeff of Tory 13.1 Plt Count 145 MPV 10.4 Immature Gran % (Auto) 0.9 Neut % (Auto) 73.5 Lymph % (Auto) 17.4 [place] % (Auto) 7.4 Eos % (Auto) 0.6 Baso % (Auto) 0.2 Neut # (Auto) 6.03 Lymph # (Auto) 1.43 [place] # (Auto) 0.61 H Eos # (Auto) 0.05 Baso # (Auto) 0.02 Immature Gran # (Auto) 0.07 Heparin Anti-Xa, Unfract 0.89 H* 0.46 Sodium 138 Potassium 4.2 Chloride 105 Carbon Dioxide 28 Anion Gap 5 BUN 24 H Creatinine 1.01 Est Cr Clr Drug Dosing 63.6 eGFR 72.43 BUN/Creatinine Ratio 23.8 H Glucose 151 H POC Glucose 136 H Estimat Average Glucose 123 Hemoglobin A1c 5.9 H Calcium 8.3 L Phosphorus 3.8 Magnesium 1.9 Troponin I High Sens 492.6 H* D B-Natriuretic Peptide 285 H Albumin 3.3 L 01/14/25 10:45 WBC RBC Hgb Hct MCV MCH MCHC RDW Std Deviation RDW Coeff of Tory Plt Count MPV Immature Gran % (Auto) Neut % (Auto) Lymph % (Auto) [place] % (Auto) Eos % (Auto) Baso % (Auto) Neut # (Auto) Lymph # (Auto) [place] # (Auto) Eos # (Auto) Baso # (Auto) Immature Gran # (Auto) Heparin Anti-Xa, Unfract Sodium Potassium Chloride Carbon Dioxide Anion Gap BUN Creatinine Est Cr Clr Drug Dosing eGFR BUN/Creatinine Ratio Glucose POC Glucose 201 H Estimat Average Glucose Hemoglobin A1c Calcium Phosphorus Magnesium Troponin I High Sens B-Natriuretic Peptide Albumin PG Care Time/CCT Total # of Minutes Spent Total Time Spent with Patient: Total time spent is greater than 50% in coordination of care (as documented) at patient's floor/unit and/or counseling patient: Coding Level of Care Code 43932 SUB INP/OBS CARE 2/35MIN Diagnoses Non-ST elevated myocardial infarction I21.4 Atrial fibrillation with rapid ventricular response I48.91 CAD (coronary artery disease) I25.10 Right bundle branch block I45.10 Hypertension I10 Heart failure with preserved ejection fraction I50.30
[2025-01-15 06:23] LABS: Hematocrit (blood only) 43.7 % (42.0-52.0); Hemoglobin 15.1 g/dl (14.0-18.0); Immature Granulocytes # (auto) 0.07 K/uL (0.01-0.20); Immature Granulocytes % (auto) 0.7 %; Mean Corpuscular Hemoglobin 31.1 pg (25.0-34.0); Mean Corpuscular Volume 89.9 fL (80.0-100.0); Platelet Count 160 K/uL (130-400); RDW Standard Deviation 42.7 fL (36.4-46.3); Red Blood Count 4.86 M/uL (4.70-6.10); White Blood Count 10.30 K/ul (4.8-10.8)
[2025-01-15 06:42] LABS: Anion Gap 6.0 (3-11); Blood Urea Nitrogen 29.0 mg/dl (6-23); Calcium 8.7 mg/dl (8.6-10.3); Carbon Dioxide 28.0 mmol/L (21-32); Chloride 104.0 mmol/L (98-107); Creatinine Clr Calc Pharmacy 61.8 ml/min; Glucose 134.0 mg/dl (70-99(Fasting)); Magnesium 2.1 mg/dl (1.7-2.4); Potassium 4.5 mmol/L (3.5-5.1); Sodium 138.0 mmol/L (136-145)
[2025-01-15 07:49] VITALS: RESP 21; TEMP 97.3
--- NOTE | 2025-01-15 07:53 | XRay Report ---
EXAM: XR chest 1V portable CLINICAL HISTORY: CHF TECHNIQUE: Radiograph of chest was acquired. COMPARISON: FINDINGS: Mild bilateral hilar vascular congestion. Unchanged. Haziness/atelectasis seen in the left lower lobe. Unchanged. Obliterated left costophrenic angle, may be due to mild left pleural effusion. No pulmonary nodules are identified. Mildly enlarged cardiac shadow. Rest of the lungs are clear and well-expanded with no pulmonary infiltrate or pleural effusion. Rest of the cardiomediastinal silhouette is within normal limits. No acute osseous abnormality. IMPRESSION: Mild bilateral hilar vascular congestion. Unchanged. Haziness/atelectasis seen in the left lower lobe. Unchanged. Obliterated left costophrenic angle, may be due to mild left pleural effusion. Unchanged. Mildly enlarged cardiac shadow. Unchanged. No interval changes Electronically signed by Kelvin Henderson 01-15-2025 07:52 AM
[2025-01-15] MEDS: FUROSEMIDE 80 MG TAB PO SCH (09:42)
--- NOTE | 2025-01-15 09:59 | Electrocardiogram Report ---
Test Reason : Blood Pressure : */* mmHG Vent. Rate : 57 BPM Atrial Rate : 57 BPM P-R Int : 148 ms QRS Dur : 176 ms QT Int : 496 ms P-R-T Axes : * 103 5 degrees QTcB Int : 482 ms Ectopic atrial vs, junctional bradycardia Right bundle branch block Possible Inferior infarct (cited on or before 13-Jan-2025) Abnormal ECG Confirmed by Kvng Reyes ([id number]) on 01/15/2025 9:59:09 AM Referred By: REFERRED SELF Confirmed By: Kvng Reyes
[2025-01-15 11:04] VITALS: BP 155/91; O2SAT 98
--- NOTE | 2025-01-15 11:12 | Discharge Summary ---
Discharge Summary Date of Service January 15, 2025 Principal Dx & Hospital Course #1 = Principal Diagnosis (1) Atrial fibrillation with rapid ventricular response: Present on admission. He has since converted to sinus bradycardia. Cardiology consultation and recommendations appreciated. Metoprolol has been down titrated this admission. (2) Hypertension: Stable. Continue current medical management (3) CAD (coronary artery disease): Troponin levels are elevated but no chest pain and no acute EKG changes. No evidence of acute coronary syndrome (4) Diabetes mellitus: ADA diet. Sliding scale coverage. Continue current medical management (5) CHF (congestive heart failure): He presented with acute on chronic diastolic CHF. He was treated with pa renteral Lasix and discharged on Lasix 80 mg once daily taken in the early afternoon. Improved. 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 Due to excessive bruising he had Plavix and losartan stopped on 01/09/2025. He was awoken by chest pain and palpitations earlier this evening, and received amiodarone 150 mg, aspirin 324 mg, and fentanyl 50 mcg IV en route to the emergency department by EMS. Upon arrival to the emergency department, patient was found to be in A-fib with RVR and aberrancy. He was given Cardizem 20 mg IV, and after about 1 hour, his heart rhythm and rate changed to normal sinus rhythm in the low 60s. Patient denies any different oral intake, or physical activity pattern. He reports taking his medications as directed. Cardiology was contacted by the emergency department, and will see the patient this morning. Discharge Exam General-alert and oriented x3, no fever, no chills HEENT-head atraumatic and normocephalic, pupils equal and reactive to light, extraocular muscles intact Neck-no lymphadenopathy or thyromegaly, trachea midline Chest-clear to auscultation. No rales, wheezing or rhonchi Cardiac-regular rate and rhythm. Normal S1 and S2 Abdomen-normal bowel sounds, no hepatosplenomegaly Extremities-no cyanosis, clubbing, or edema Neuro-cranial nerves II through XII intact, motor and sensory function within normal limits, strength symmetrical with generalized weakness and associated ambulatory dysfunction, no focal deficits Psych-normal affect, normal mood Discharge Plan Discharge Items Patient Disposition: Home - Home Health Services Reason For Visit: ATRIAL FIB WITH RVR Discharge Diagnosis: Acute on chronic diastolic CHF, paroxysmal atrial fibrillation with rapid ventricular rate, orthostatic hypotension, elevated troponin without acute coronary syndrome Condition on Discharge: Good Activity: Resume your previous activity Non-emergency contact: Primary Care Provider and Annealing Operator Call non-emergency contact if: you have any medication questions and your sympto ms worsen Follow-up/Referrals: Fidelia Chapa DO [Primary Care Provider] - Diet: Carb Consistent or DM2 and Heart Healthy Addtl Attending Provider Instructions: Losartan has been discontinued. Metoprolol dosage has been decreased. Amiodarone is new. Lasix dosage has been increased to 80 mg daily taken in the early afternoon after lunch. New prescriptions have been sent to your [facility] pharmacy on [facility]. Pending Studies at Discharge: No Stand-Alone Forms: My [employer], Smoking Cessation Medications and DC Order Prescriptions: New amiodarone 200 mg Tablet 400 mg PO BIDM Qty: 60 0RF furosemide 80 mg Tablet 80 mg PO QAM Qty: 30 0RF metoprolol succinate 25 mg Tablet Extended Release 24 Hr 25 mg PO QAM Qty: 30 0RF Continued aspirin 81 mg tablet,delayed release (DR/EC) 0 mg PO HS Patient Comments: 01/13- otc unable to verify clopidogrel 75 mg tablet 75 mg PO DAILY Eliquis 5 mg tablet 0 mg PO Q12H Patient Comments: 01/13- no fill history unable to verify metformin 500 mg tablet 500 mg PO BID potassium chloride 10 mEq capsule, extended release 10 meq PO BID hydrocodone-acetaminophen 5-325 mg tablet 0 tab PO Q12 Patient Comments: 01/13- last filled 11/26 30 day supply #120 Rx Instructions: for 30 days lansoprazole 30 mg capsule,delayed release(DR/EC) 30 mg PO QAM amitriptyline 100 mg tablet 100 mg PO HS finasteride 5 mg tablet 5 mg PO DAILY rosuvastatin 10 mg tablet 10 mg PO QAM Discontinued losartan 50 mg tablet 25 mg PO QAM furosemide 40 mg tablet 40 mg PO QAM metoprolol succinate 50 mg Tablet Extended Release 24 Hr 50 mg PO QAM Qty: 30 0RF Admission Data Admit Date/Time: 01/13/25 05:54 Attending Provider: Johan Merritt Admit Provider: Gaetano Frederick Primary Care Provider: Fidelia Chapa Other Providers: Gaetano Frederick; Kvng Reyes; [facility] Hospital Stay Data Consultations 01/13/25 05:05 ED Decision to Admit Stat 01/13/25 08:40 Consult Cardiology Routine Pending Results Patient Have Any Pending Studies at Discharge: No Discharge Instructions Given to Patient (Per Discharging Provider) Losartan has been discontinued. Metoprolol dosage has been decreased. Amiodarone is new. Lasix dosage has been increased to 80 mg daily taken in the early afternoon after lunch. New prescriptions have been sent to your [facility] pharmacy on [facility]. Total Time Total Time Spent Total Time Spent (In Minutes): 50 minutes Coding Level of Care Code 52809 INP/OBS DISCH >30 MIN Diagnoses Atrial fibrillation with rapid ventricular response I48.91 Hypertension I10 CAD (coronary artery disease) I25.10 Diabetes mellitus E11.9 CHF (congestive heart failure) I50.9
[2025-01-15 11:21] VITALS: PULSE 60
--- NOTE | 2025-01-15 14:41 | Cardiology Progress Note ---
Date of Service January 15, 2025 Assessment & Plan (1) Non-ST elevated myocardial infarction: (2) Atrial fibrillation with rapid ventricular response: (3) CAD (coronary artery disease): (4) Right bundle branch block: (5) Hypertension: (6) Heart failure with preserved ejection fraction: Plan 1. NSTEMI: Biomarkers trending downwards. No recurrent symptoms. On heparin for 24 hours now discontinued. Also restarted on Plavix. My impression is that his NSTEMI is type II, related to atrial fibrillation and high ventricular rates. No current exertional symptoms of coronary disease although very limited. No recurrent symptoms. 2. Coronary artery disease: Multiple prior percutaneous intervention to the right coronary artery. Chronic total occlusion of the left circumflex. He will continue with dual antiplatelet therapy at this time. Also continue high-dose rosuvastatin. 3. Atrial fibrillation: Started on amiodarone. Will continue 400 mg twice daily for another 5 days. At that time, his dose can be reduced to 200 mg daily. Left atrial appendage occlusion completed about a month ago. He will continue on dual antiplatelet therapy at this time. 4. Right bundle branch block: Chronic. Normal GA interval. Will need to be cautious with institution of amiodarone. 5. Right ventricular dysfunction: Noted on his echocardiogram in October. No current signs suggestive of RV failure. No lower extremity edema. 6. Hypertension: Still high at times. Tolerating losartan. No new orthostatic type symptoms. 7. Heart failure with preserved ejection fraction: Breathing is good today. No evidence of volume overload. He was seems stable for discharge given his ambulatory status. No recurrent symptoms. Rhythm has been stable. We made some medication adjustments and he can follow-up in the outpatient setting. The most important thing would be to reduce his amiodarone to 200 mg daily in 5 days. Admission and Anticipated Discharge Date Admission Date: January 13, 2025 Subjective This afternoon the patient claimed feeling well. He was ambulatory with a walker. He felt like he was strong and did not report orthostatic symptoms today. No additional episodes of his index chest pain. Some "sharp" chest pain that lasted a couple of minutes earlier today. No palpitations. Review of Systems Review of Systems: Per HPI Physical Exam Physical Exam: The patient is alert and oriented. Mood and affect appeared normal. He answered all questions appropriately. HEENT: Pupils are equal and reactive to light and accommodation. Extraocular movements are intact. The sclerae are anicteric. Neuro: Cranial nerves intact Lungs: Normal respiratory effort Cardiac: Heart demonstrates a regular rate and rhythm. Normal S1 and S2. No murmurs on examination. Pulses: The patient has palpable radial pulses bilaterally that are equal in intensity. Extremities: There was no evidence of hypoperfusion. There is no cyanosis or clubbing. Skin: I did not appreciate any rashes on examination today. Results & Data Vital Signs (Past 12 Hours) Vital Signs Temp Pulse Pulse Pulse Resp BP BP 01/15/25 11:19 36.3 C L 52 L 60 21 155/91 H 184/76 H 01/15/25 11:01 52 L 21 184/76 H 01/15/25 11:00 155/91 H 01/15/25 10:59 36.3 C L 52 L 21 140/60 01/15/25 08:38 01/15/25 07:48 36.3 C L 64 21 146/83 H 01/15/25 05:32 61 01/15/25 03:29 36.6 C 58 L 18 163/103 H Pulse Ox O2 Del Method 01/15/25 11:19 98 01/15/25 11:01 98 Room Air 01/15/25 11:00 01/15/25 10:59 100 Room Air 01/15/25 08:38 Room Air 01/15/25 07:48 96 Room Air 01/15/25 05:32 01/15/25 03:29 97 Room Air Laboratory Results Abnormal Lab Results 01/14/25 01/14/25 01/15/25 16:16 20:12 05:22 WBC 10.30 RBC 4.86 Hgb 15.1 Hct 43.7 MCV 89.9 MCH 31.1 MCHC 34.6 RDW Std Deviation 42.7 RDW Coeff of Tory 13.2 Plt Count 160 MPV 10.3 Immature Gran % (Auto) 0.7 Neut % (Auto) 69.3 Lymph % (Auto) 19.4 Grant % (Auto) 8.9 Eos % (Auto) 1.5 Baso % (Auto) 0.2 Neut # (Auto) 7.14 H Lymph # (Auto) 2.00 Grant # (Auto) 0.92 H Eos # (Auto) 0.15 Baso # (Auto) 0.02 Immature Gran # (Auto) 0.07 Sodium 138 Potassium 4.5 Chloride 104 Carbon Dioxide 28 Anion Gap 6 BUN 29 H Creatinine 1.04 Est Cr Clr Drug Dosing 61.8 eGFR 69.93 BUN/Creatinine Ratio 27.9 H Glucose 134 H POC Glucose 124 H 122 H Calcium 8.7 Phosphorus 4.1 Magnesium 2.1 Albumin 3.6 01/15/25 01/15/25 07:26 11:27 WBC RBC Hgb Hct MCV MCH MCHC RDW Std Deviation RDW Coeff of Tory Plt Count MPV Immature Gran % (Auto) Neut % (Auto) Lymph % (Auto) Grant % (Auto) Eos % (Auto) Baso % (Auto) Neut # (Auto) Lymph # (Auto) Grant # (Auto) Eos # (Auto) Baso # (Auto) Immature Gran # (Auto) Sodium Potassium Chloride Carbon Dioxide Anion Gap BUN Creatinine Est Cr Clr Drug Dosing eGFR BUN/Creatinine Ratio Glucose POC Glucose 128 H 158 H Calcium Phosphorus Magnesium Albumin PG Care Time/CCT Total # of Minutes Spent Total Time Spent with Patient: Total time spent is greater than 50% in coordination of care (as documented) at patient's floor/unit and/or counseling patient: Coding Level of Care Code 73524 SUB INP/OBS CARE 2/35MIN Diagnoses Non-ST elevated myocardial infarction I21.4 Atrial fibrillation with rapid ventricular response I48.91 CAD (coronary artery disease) I25.10 Right bundle branch block I45.10 Hypertension I10 Heart failure with preserved ejection fraction I50.30
--- NOTE | 2025-01-16 11:12 | Electrocardiogram Report ---
Test Reason : Blood Pressure : */* mmHG Vent. Rate : 51 BPM Atrial Rate : 51 BPM P-R Int : 190 ms QRS Dur : 174 ms QT Int : 472 ms P-R-T Axes : 17 110 36 degrees QTcB Int : 435 ms Sinus bradycardia Right bundle branch block Abnormal ECG Confirmed by Kvng Reyes ([id number]) on 01/16/2025 11:08:40 AM Referred By: REFERRED SELF Confirmed By: Kvng Reyes
== END 2025-01-15 17:27 | disposition home health service (06) ==
LOC: SUATTDRO → ED 03:56 → EDINP 03:56 → SUATTDRO 05:54 → 2S 08:42

== ENCOUNTER 2025-02-18 19:20 | Inpatient (IN) ==
[2025-02-18 19:53] LABS: Hematocrit (blood only) 48.8 % (42.0-52.0); Hemoglobin 16.1 g/dl (14.0-18.0); Immature Granulocytes # (auto) 0.06 K/uL (0.01-0.20); Immature Granulocytes % (auto) 0.5 %; Mean Corpuscular Hemoglobin 29.7 pg (25.0-34.0); Mean Corpuscular Volume 89.9 fL (80.0-100.0); Platelet Count 168 K/uL (130-400); RDW Standard Deviation 42.5 fL (36.4-46.3); Red Blood Count 5.43 M/uL (4.70-6.10); White Blood Count 11.73 K/ul (4.8-10.8)
[2025-02-18] MEDS: diphenhydrAMINE 50 MG/ML VIAL IV ONE (20:03)
[2025-02-18] MEDS: MoRPHine SULFATE 2 MG/ML CARP IV STA (20:03)
[2025-02-18] MEDS: LIDOCAINE 5% 1 PATCH TD STA (20:03)
[2025-02-18] MEDS: ACETAMINOPHEN 1,000 MG/100 ML VIAL IV STA (20:08)
[2025-02-18 20:10] LABS: Alanine Aminotransferase 24.0 U/L (7-52); Albumin Globulin Ratio 1.2 (0.9-2); Alkaline Phosphatase 91.0 U/L (34-104); Anion Gap 11.0 (3-11); Bilirubin,Total 0.5 mg/dl (0.2-1.0); Blood Urea Nitrogen 23.0 mg/dl (6-23); Calcium 9.2 mg/dl (8.6-10.3); Carbon Dioxide 28.0 mmol/L (21-32); Chloride 102.0 mmol/L (98-107); Creatinine Clr Calc Pharmacy 63.6 ml/min; Globulin 3.2 gm/dl (2.5-4.0); Glucose 186.0 mg/dl (70-99(Fasting)); Lipase 12.0 U/L (11-82); Potassium 4.0 mmol/L (3.5-5.1); Sodium 141.0 mmol/L (136-145); Total Protein 7.1 gm/dl (6.0-8.3)
--- NOTE | 2025-02-18 20:22 | Emergency Department Note ---
Impression & Plan Fall, Acute low back pain, Closed compression fracture of L4 vertebra, Ambulatory dysfunction, Elevated troponin ED Provider Note HISTORY OF PRESENT ILLNESS: Patient is an 84-year-old male presenting with low back pain and tailbone pain after a fall. Patient reports that he was in the bathroom this morning when he lost his footing and fell, landing directly on his buttocks. He denies striking his head or loss of consciousness. He reports he was able to get off of the ground on his own, but it took some time because he has difficulties with movement. He states that he has had progressively worsening pain in his low back and tailbone region throughout the day today. He is on aspirin and his medical alert laury says that he is also on Plavix, but patient does not know if he takes this anymore. He denies any chest pain, shortness of breath or lightheadedness prior to the fall. He is currently complaining of pain in his lower lumbar region and right lower back. He denies any numbness or tingling or weakness in his extremities. ROS: as above PHYSICAL EXAM: Constitutional: Patient appears in no acute distress. HENT: Head: Normocephalic and atraumatic. Eyes: EOMI, PERRL Mouth/Throat: Mucous membranes moist. Neck: Trachea midline. Neck supple. No midline cervical spine tenderness to palpation. Cardiovascular: RRR, No murmurs, rubs or gallops. Intact distal pulses. Pulmonary/Chest: No respiratory distress. Breath sounds clear and equal bilaterally. No wheezes or rales. No chest wall tenderness to palpation. Abdominal: Abdomen soft, no tenderness, rebound or guarding. Back: Lower lumbar midline tenderness to palpation. No step-offs. No obvious ecchymosis. Patient does have tenderness to palpation along the lower lumbar paraspinal region. Musculoskeletal: No edema, tenderness or deformity noted. Skin: Warm and dry. No rash, erythema, pallor or cyanosis Psychiatric: Appropriate mood and affect for situation. Neurological: Alert and keenly responsive. CN II-XII grossly intact, moving all extremities equally and fully. MDM: - Vitals signs showed hypertension and tachycardia. - History obtained via patient. History as above. - Chronic conditions affecting care: Afib; BPH; HLD; CHF; CAD; RBBB; HTN - Differential diagnoses include, but are not limited to: Compression fraction; intracranial hemorrhage; skull fracture; pneumothorax; liver laceration; retroperitoneal hematoma - Order placed for continuous cardiac monitoring. At this time, monitor showed rate of 75 bpm with normal sinus rhythm, per my interpretation. - External medical records reviewed. Discharge summary dated 01/15/2025 was reviewed. Patient was admitted for A-fib with RVR. Plavix was stopped per this report on 01/09/2025. - EKG image interpreted by myself showed normal sinus rhythm. Rate 86 bpm. QT 430. No acute ischemic changes. Noted have a right bundle branch block. - Laboratory workup interpreted by myself showed leukocytosis (WBC 11.73); normal PT/INR; stable electrolytes; hyperglycemia (glucose 185); elevated troponin (21.1); normal AST/ALT; normal lipase - CXR image reviewed by myself is negative for pneumothorax, per my interpretation. - Xray pelvis negative for acute fracture. - Repeat troponin elevated at 21.8 - Patient given 2 mg IV morphine, and lidocaine patch in ER. He declined the IV Tylenol. On reassessment, he reports he is still having significant amounts of pain. Given 50 mcg of IV fentanyl. - Given 40 mg IV solumedrol and 50 mg IV benadryl for pretreatment for CT contrast dye. - CT head wo contrast negative for acute traumatic injury - CT cervical spine wo contrast negative for acute injury - CT abdomen/pelvis with IV contrast showed a stool ball in the cecum suggesting constipation. No solid organ injury. - CT lumbar spine wo contrast showed a new compression fracture at the L4. There is also noted to be a chronic compression fracture at L3. - On reassessment, the patient reports he still having too much pain to attempt to get up and walk. - Discussion was had with telehealth case manager about patient's case and need for admission - Hospitalist consulted for admission - Patient admitted to [facility] for further evaluation and management. ASSESSMENT AND PLAN: Diagnosis: Fall; acute low back pain; L4 compression fracture; ambulatory dysfunction; elevated troponin Plan: Admit Past Med/Surg History Problem List (Updated 02/18/25 @ 23:21 by Leslee Philippe MD) Elevated troponin (Acute) Ambulatory dysfunction (Acute) Closed compression fracture of L4 vertebra (Acute) Acute low back pain (Acute) Fall (Acute) Chest pain (Acute) Atrial fibrillation with RVR (Acute) Heart failure with preserved ejection fraction Erysipelas of face Acute on chronic congestive heart failure Trochanteric bursitis, right hip Trochanteric bursitis of left hip Benign prostatic hyperplasia with urinary obstruction (Acute) Incomplete bladder emptying (Acute) Nephrolithiasis (Acute) Dyslipidemia (Chronic) BPH (benign prostatic hyperplasia) (Chronic) A-fib (Chronic) Medical History (Updated 02/18/25 @ 23:21 by Leslee Philippe MD) CAD (coronary artery disease) Right bundle branch block Diabetes mellitus Hypertension GERD (gastroesophageal reflux disease) CAD (coronary artery disease) Surgical History History of elbow surgery History of cervical spinal arthrodesis History of cholecystectomy Family History Mother Cardiac disorder Father Cardiac disorder Social History Smoking Status: Unknown if ever smoked Second Hand Exposure: No; Do You Dip or Chew Tobacco: No; Hx Alcohol Use: No Hx Substance Use: No Preferred Language: Maltese Communication Ability: Effective Lamp Tester And Inspector Required: No Beliefs That Will Affect Care: None Current Living Situation: Spouse Feels Safe at Home: Yes Assistive Devices: Glasses and Walker Allergies Allergies Allergy/AdvReac Type Severity Reaction Status Date / Time Iodinated Contrast Media Allergy Severe HIVES Verified 02/18/25 21:57 amoxicillin Allergy Intermediate HIVES Verified 02/18/25 21:57 bee venom protein (honey bee) Allergy Intermediate HIVES Verified 02/18/25 21:57 cortisone Allergy Intermediate SKIN Verified 02/18/25 21:57 IRRITATION iodine Allergy Intermediate HIVES Verified 02/18/25 21:57 Penicillins Allergy Intermediate HIVES Verified 02/18/25 21:57 lorazepam AdvReac Mild MAKES HIM Verified 02/18/25 21:57 GOOFY Home Meds Home Medications Medication Instructions Recorded Confirmed aspirin 81 mg tablet,delayed 81 mg PO HS 01/04/19 02/18/25 release amitriptyline 100 mg tablet 100 mg PO HS 10/12/24 02/18/25 finasteride 5 mg tablet 5 mg PO DAILY 10/12/24 02/18/25 hydrocodone 5 mg-acetaminophen 325 2 tab PO Q12 10/12/24 02/18/25 mg tablet metformin 500 mg tablet 500 mg PO BIDM 10/12/24 02/18/25 potassium chloride 10 mEq 10 meq PO BID 10/12/24 02/18/25 capsule,extended release rosuvastatin 10 mg tablet 10 mg PO QAM 10/12/24 02/18/25 acetaminophen 650 mg 1,300 mg PO Q12H 02/18/25 02/18/25 tablet,extended release (Tylenol Arthritis Pain) pantoprazole 40 mg tablet,delayed 40 mg PO QAM 02/18/25 02/18/25 release Previous Rx's Medication Instructions Recorded furosemide 80 mg tablet 80 mg PO QAM #30 tabs 01/15/25 metoprolol succinate 25 mg 25 mg PO QAM #30 tabs 01/15/25 tablet,extended release 24 hr Results & Data (ED) Vital Signs Vital Signs - 24 hr 02/18/25 19:13 02/18/25 19:41 02/18/25 19:47 Temperature 36.9 C 36.8 C Temperature Source Oral Oral Pulse Rate 93 H 95 H Pulse Rate [Left] 95 H Respiratory Rate 21 20 20 Blood Pressure 151/108 H Blood Pressure [Left Arm] 151/108 H Blood Pressure Mean 122 Blood Pressure Mean [Left Arm] 122 Pulse Oximetry 91 90 95 Oxygen Delivery Method Room Air Room Air Room Air Sepsis Recent Fever Within 48 Hours No Sepsis New/Unexplained Change in Mental Status N/A Sepsis Action Taken by Nursing No Action Required 02/18/25 20:22 02/18/25 20:47 02/18/25 21:00 Temperature Temperature Source Pulse Rate 95 H Pulse Rate [Left] 79 80 Respiratory Rate 16 20 Blood Pressure Blood Pressure [Left Arm] 169/96 H 169/96 H Blood Pressure Mean Blood Pressure Mean [Left Arm] 120 120 Pulse Oximetry 92 92 Oxygen Delivery Method Room Air Room Air Sepsis Recent Fever Within 48 Hours Sepsis New/Unexplained Change in Mental Status Sepsis Action Taken by Nursing 02/18/25 22:00 02/18/25 23:00 Temperature Temperature Source Pulse Rate Pulse Rate [Left] 71 75 Respiratory Rate 16 20 Blood Pressure Blood Pressure [Left Arm] 170/85 H 168/85 H Blood Pressure Mean Blood Pressure Mean [Left Arm] 113 112 Pulse Oximetry 92 98 Oxygen Delivery Method Room Air Room Air Sepsis Recent Fever Within 48 Hours Sepsis New/Unexplained Change in Mental Status Sepsis Action Taken by Nursing Laboratory Data 02/18/25 19:39 02/18/25 19:39 Lab Results 02/18/25 02/18/25 Range/Units 19:39 21:31 WBC 11.73 H (4.8-10.8) K/ul RBC 5.43 (4.70-6.10) M/uL Hgb 16.1 (14.0-18.0) g/dl Hct 48.8 (42.0-52.0) % MCV 89.9 (80.0-100.0) fL MCH 29.7 (25.0-34.0) pg MCHC 33.0 (32.0-36.0) g/dL RDW Std Deviation 42.5 (36.4-46.3) fL RDW Coeff of Tory 13.0 (11.5-14.5) % Plt Count 168 (130-400) K/uL MPV 10.0 (9.4-12.4) fL Immature Gran % (Auto) 0.5 % Neut % (Auto) 80.1 % Lymph % (Auto) 13.0 % [place] % (Auto) 5.9 % Eos % (Auto) 0.3 % Baso % (Auto) 0.2 % Neut # (Auto) 9.40 H (1.40-6.50) K/uL Lymph # (Auto) 1.53 (1.20-3.40) K/uL [place] # (Auto) 0.69 H (0.11-0.59) K/uL Eos # (Auto) 0.03 (0.00-0.50) K/uL Baso # (Auto) 0.02 (0.00-0.20) K/uL Immature Gran # (Auto) 0.06 (0.01-0.20) K/uL PT 11.5 (9.0-12.0) Seconds INR 1.1 (0.9-1.1) Sodium 141 (136-145) mmol/L Potassium 4.0 (3.5-5.1) mmol/L Chloride 102 (98-107) mmol/L Carbon Dioxide 28 (21-32) mmol/L Anion Gap 11 (3-11) BUN 23 (6-23) mg/dl Creatinine 0.94 (0.6-1.4) mg/dl Est Cr Clr Drug Dosing 63.6 ml/min eGFR 78.95 BUN/Creatinine Ratio 24.5 H (10-20) Glucose 186 H (70-99(Fasting)) mg/dl Calcium 9.2 (8.6-10.3) mg/dl Total Bilirubin 0.5 (0.2-1.0) mg/dl AST 20 (13-39) U/L ALT 24 (7-52) U/L Alkaline Phosphatase 91 (34-104) U/L Troponin I High Sens 21.1 H 21.8 H (0-20) pg/ml Total Protein 7.1 (6.0-8.3) gm/dl Albumin 3.9 (3.4-5.0) gm/dl Globulin 3.2 (2.5-4.0) gm/dl Albumin/Globulin Ratio 1.2 (0.9-2) Lipase 12 (11-82) U/L Administered Medications Miscellaneous (Remove Lidoderm Patch) 1 each N/A DAILY@2100 PRICE Stop: 03/20/25 20:59 Last Admin: 02/18/25 21:19 Dose: Not Given Documented By: TYREL Discontinued Medications Diphenhydramine HCl (Diphenhydramine 50 Mg/Ml Vial) 50 mg IV ONE ONE Stop: 02/18/25 19:42 Last Admin: 02/18/25 20:03 Dose: 50 mg Documented By: TYREL Acetaminophen (Ofirmev) 1,000 mg in 100 mls @ 400 mls/hr IV NOW STA Stop: 02/18/25 19:55 Last Admin: 02/18/25 20:08 Dose: Not Given Documented By: TYREL Ioversol (Optiray 320 100ml) 93 ml IV ONCE ONE Stop: 02/18/25 20:36 Last Admin: 02/18/25 20:35 Dose: 93 ml Documented By: GES Lidocaine (Lidocaine 5% 1 Patch) 1 patch TD NOW STA Stop: 02/18/25 19:42 Last Admin: 02/18/25 20:03 Dose: 1 patch Documented By: TYREL Methylprednisolone (Methylprednisolone 125 Mg/2 Ml Vial) 40 mg IV NOW ONE Stop: 02/18/25 19:42 Last Admin: 02/18/25 20:03 Dose: 40 mg Documented By: TYREL Morphine Sulfate (Morphine Sulfate 2 Mg/Ml Carp) 2 mg IV NOW STA Stop: 02/18/25 19:42 Last Admin: 02/18/25 20:03 Dose: 2 mg Documented By: TYREL Imaging Data Radiologist's Impression: Abdomen/Pelvis CT 02/18/25 19:41 Exam(s): CT ABDOMEN + PELVIS With Contrast IV Amt: 93ml opti 320 EXAM: CT Abdomen and Pelvis With Intravenous Contrast CLINICAL HISTORY: Reason for exam: low back/pelvis pain s/p fall. TECHNIQUE: Axial computed tomography images of the abdomen and pelvis with intravenous contrast. CTDI is 37 mGy and DLP is 1597 mGy-cm. Automated exposure control was utilized for the study. A dose lowering technique was utilized adhering to the principles of ALARA. CONTRAST: Patient received 93ml Optiray 320 of IV contrast COMPARISON: 09/04/2017 FINDINGS: Lung bases: Unremarkable. No mass. No consolidation. Heart: Mild cardiomegaly and moderate coronary calcification. ABDOMEN: Liver: Unremarkable. No mass. Gallbladder and bile ducts: Previous cholecystectomy. No ductal dilation. Pancreas: Unremarkable. No mass. No ductal dilation. Spleen: Unremarkable. No splenomegaly. Adrenals: Unremarkable. No mass. Kidneys and ureters: Nonobstructive 2 mm caliceal calculus in the lower pole of the left kidney. No hydronephrosis or ureterolithiasis is seen. Stomach and bowel: See below. PELVIS: Appendix: The appendix is normal. 7.7 cm of stool in the cecum is mildly dilated suggesting constipation. No focal bowel wall inflammation, pneumoperitoneum, or free fluid is identified. Bladder: Unremarkable. No mass. Reproductive: Unremarkable as visualized. ABDOMEN and PELVIS: Intraperitoneal space: See above. Bones/joints: Mild osteoarthritic changes in both hips. No hip or pelvic fracture is identified. No dislocation. Soft tissues: Unremarkable. Vasculature: The abdominal aorta is heavily calcified but nondilated. There is no aneurysm or dissection. Lymph nodes: Unremarkable. No enlarged lymph nodes. IMPRESSION: 1. The appendix is normal. 7.7 cm of stool in the cecum is mildly dilated suggesting constipation. No focal bowel wall inflammation, pneumoperitoneum, or free fluid is identified. 2. Mild osteoarthritic changes in both hips. No hip or pelvic fracture is identified. 3. No solid organ injury or free fluid is seen within the abdomen or pelvis. Electronically signed by: Levon Rosas MD 02/18/25 21:[address] 02/18/25 19:41 Exam(s): CT C SPINE EXAM: CT Cervical Spine Without Intravenous Contrast CLINICAL HISTORY: Reason for exam: fall from standing. TECHNIQUE: Axial computed tomography images of the cervical spine without intravenous contrast. CTDI is 37 mGy and DLP is 1597 mGy-cm. Automated exposure control was utilized for the study. A dose lowering technique was utilized adhering to the principles of ALARA. COMPARISON: No relevant prior studies available. FINDINGS: Vertebrae: Previous instrumentation and fusion of the C1-2 level. Degenerative fusion of C4 through C7. No acute fracture. Soft tissues: Mild calcification of the carotid bifurcation bilaterally. DISCS/SPINAL CANAL/NEURAL FORAMINA: C2-C3: Degenerative fusion of C2-3. No stenosis. C3-C4: Unremarkable. No significant disc disease. No stenosis. C4-C5: Degenerative fusion. Spinal stenosis measuring 8 mm. C5-C6: Degenerative fusion. Spinal stenosis measuring 9 mm. C6-C7: Degenerative fusion. No stenosis. C7-T1: Moderate degenerative disc disease. No stenosis. IMPRESSION: 1. Previous instrumentation and fusion of the C1-2 level. 2. [id number] multilevel degenerative disc disease and facet arthrosis. There is straightening of the normal cervical curvature suggesting spasm. No acute fracture or subluxation is seen. Electronically signed by: Levon Rosas MD 02/18/25 21:29 PM Chest X-Ray 02/18/25 19:41 Exam(s): XR CXR 1 VIEW EXAM: XR Chest, 1 View CLINICAL HISTORY: Reason for exam: fall. TECHNIQUE: Frontal view of the chest. COMPARISON: 01/15/2025 FINDINGS: Lungs: Low lung volumes with bronchovascular crowding and mild bibasilar atelectasis versus edema or infiltrates, increased since previous. Pleural space: Unremarkable. No pneumothorax. Heart: The cardiac silhouette is mildly enlarged but partially obscured. Previous left atrial appendage plugging. Mediastinum: Unremarkable. Normal mediastinal contour. Bones/joints: Mild osteophytosis in the thoracic spine. No acute fracture. Vasculature: The aortic arch is mildly calcified. Upper abdomen: Unremarkable as visualized. No pneumoperitoneum under the diaphragm. IMPRESSION: Low lung volumes with bronchovascular crowding and mild bibasilar atelectasis versus edema or infiltrates, increased since previous. Electronically signed by: Levon Rosas MD 02/18/25 20:[address] 02/18/25 19:41 Exam(s): CT HEAD Without Contrast EXAM: CT Head Without Intravenous Contrast CLINICAL HISTORY: Reason for exam: fall from standing. TECHNIQUE: Axial computed tomography images of the head/brain without intravenous contrast. CTDI is 37 mGy and DLP is 1597 mGy-cm. Automated exposure control was utilized for the study. A dose lowering technique was utilized adhering to the principles of ALARA. COMPARISON: 09/20/2023 FINDINGS: Brain: Mild cerebral atrophy and periventricular white matter low density consistent with chronic small vessel disease and/or senescent changes. No acute large vessel infarct or intracranial hemorrhage is seen. Ventricles: Unremarkable. No ventriculomegaly. Bones/joints: Unremarkable. No acute fracture. Soft tissues: Unremarkable. Sinuses: Unremarkable as visualized. No acute sinusitis. Mastoid air cells: Unremarkable as visualized. No mastoid effusion. IMPRESSION: Mild cerebral atrophy and periventricular white matter low density consistent with chronic small vessel disease and/or senescent changes. No acute large vessel infarct or intracranial hemorrhage is seen. Electronically signed by: Levon Rosas MD 02/18/25 21:[address] 02/18/25 19:41 Exam(s): CT L SPINE With Contrast IV Amt: 93ml opti 320 EXAM: CT Lumbar Spine With Intravenous Contrast CLINICAL HISTORY: Reason for exam: fall from standing. TECHNIQUE: Axial computed tomography images of the lumbar spine with intravenous contrast. CTDI is 37 mGy and DLP is 1597 mGy-cm. Automated exposure control was utilized for the study. A dose lowering technique was utilized adhering to the principles of ALARA. CONTRAST: Patient received 93ml Optiray 320 of IV contrast COMPARISON: Plain films from 09/20/2023 FINDINGS: Vertebrae: There is a new compression fracture at L4 status post kyphoplasty. There is also a 15% superior endplate compression fracture of L3, likely chronic but new since 2023. Soft tissues: Unremarkable. DISCS/SPINAL CANAL/NEURAL FORAMINA: L1-L2: Moderate degenerative disc disease. No stenosis. L2-L3: Mild degenerative disc disease. No stenosis. L3-L4: Mild degenerative disc disease. No stenosis. L4-L5: Mild degenerative disc disease. No stenosis. L5-S1: Moderate degenerative disc disease. No stenosis. IMPRESSION: 1. There is a new compression fracture at L4 status post kyphoplasty. There is also a 15% superior endplate compression fracture of L3, likely chronic but new since 2023. If there is clinical concern for acute compression fracture, consider MRI or bone scan for further characterization. 2. [id number] multilevel degenerative disc disease throughout the lumbar spine, similar to previous. Electronically signed by: Levon Rosas MD 02/18/25 21:35 PM Pelvis X-Ray 02/18/25 19:41 Exam(s): XR PELVIS, 1-2 views EXAM: XR Pelvis, 1 or 2 Views CLINICAL HISTORY: Reason for exam: sacral pain s/p fall. TECHNIQUE: Frontal view of the pelvis. COMPARISON: 09/20/2023 FINDINGS: Bones/joints: Slight osteophytosis involving both hip joints. The proximal femurs are intact. No hip fracture or dislocation is seen. The sacral arcuate lines are smooth and intact. No sacral fracture is identified. The pelvis appears to be intact. Soft tissues: Unremarkable. IMPRESSION: Mild osteoarthritic changes in the hips. No fracture or dislocation is seen. Electronically signed by: Levon Rosas MD 02/18/25 20:35 PM Discharge Plan Visit Data Chief Complaint: Hip Pain Stated Complaint: FALL ED Provider: Leslee Philippe Discharge Problem: Fall, Acute low back pain, Closed compression fracture of L4 vertebra, Ambulatory dysfunction, Elevated troponin Patient Disposition: Admitted As Inpatient Condition: Fair Forms Stand Alone Forms: [facility] Prescriptions Prescriptions: No Action aspirin 81 mg tablet,delayed release (DR/EC) 81 mg PO HS Patient Comments: 01/13- otc unable to verify furosemide 80 mg Tablet 80 mg PO QAM Qty: 30 0RF metoprolol succinate 25 mg Tablet Extended Release 24 Hr 25 mg PO QAM Qty: 30 0RF metformin 500 mg tablet 500 mg PO BIDM potassium chloride 10 mEq capsule, extended release 10 meq PO BID hydrocodone-acetaminophen 5-325 mg tablet 2 tab PO Q12 Patient Comments: 01/13- last filled 11/26 30 day supply #120 Rx Instructions: for 30 days amitriptyline 100 mg tablet 100 mg PO HS finasteride 5 mg tablet 5 mg PO DAILY rosuvastatin 10 mg tablet 10 mg PO QAM acetaminophen [Tylenol Arthritis Pain] 650 mg Tablet Extended Release 1,300 mg PO Q12H pantoprazole 40 mg tablet,delayed release (DR/EC) 40 mg PO QAM Referrals Referrals: Fidelia Chapa DO [Primary Care Provider] -
[2025-02-18 20:23] LABS: INR 1.1 (0.9-1.1); Prothrombin Time 11.5 Seconds (9.0-12.0)
--- NOTE | 2025-02-18 20:33 | XRay Report ---
Exam(s): XR CXR 1 VIEW EXAM: XR Chest, 1 View CLINICAL HISTORY: Reason for exam: fall. TECHNIQUE: Frontal view of the chest. COMPARISON: 01/15/2025 FINDINGS: Lungs: Low lung volumes with bronchovascular crowding and mild bibasilar atelectasis versus edema or infiltrates, increased since previous. Pleural space: Unremarkable. No pneumothorax. Heart: The cardiac silhouette is mildly enlarged but partially obscured. Previous left atrial appendage plugging. Mediastinum: Unremarkable. Normal mediastinal contour. Bones/joints: Mild osteophytosis in the thoracic spine. No acute fracture. Vasculature: The aortic arch is mildly calcified. Upper abdomen: Unremarkable as visualized. No pneumoperitoneum under the diaphragm. IMPRESSION: Low lung volumes with bronchovascular crowding and mild bibasilar atelectasis versus edema or infiltrates, increased since previous. Electronically signed by: Levon Rosas MD 02/18/25 20:33 PM
[2025-02-18] MEDS: OPTIRAY 320 100ml IV ONE (20:35)
--- NOTE | 2025-02-18 20:36 | XRay Report ---
Exam(s): XR PELVIS, 1-2 views EXAM: XR Pelvis, 1 or 2 Views CLINICAL HISTORY: Reason for exam: sacral pain s/p fall. TECHNIQUE: Frontal view of the pelvis. COMPARISON: 09/20/2023 FINDINGS: Bones/joints: Slight osteophytosis involving both hip joints. The proximal femurs are intact. No hip fracture or dislocation is seen. The sacral arcuate lines are smooth and intact. No sacral fracture is identified. The pelvis appears to be intact. Soft tissues: Unremarkable. IMPRESSION: Mild osteoarthritic changes in the hips. No fracture or dislocation is seen. Electronically signed by: Levon Rosas MD 02/18/25 20:35 PM
[2025-02-18] MEDS: REMOVE LIDODERM PATCH SCH (21:19)
--- NOTE | 2025-02-18 21:26 | CT Scan Report ---
Exam(s): CT HEAD Without Contrast EXAM: CT Head Without Intravenous Contrast CLINICAL HISTORY: Reason for exam: fall from standing. TECHNIQUE: Axial computed tomography images of the head/brain without intravenous contrast. CTDI is 37 mGy and DLP is 1597 mGy-cm. Automated exposure control was utilized for the study. A dose lowering technique was utilized adhering to the principles of ALARA. COMPARISON: 09/20/2023 FINDINGS: Brain: Mild cerebral atrophy and periventricular white matter low density consistent with chronic small vessel disease and/or senescent changes. No acute large vessel infarct or intracranial hemorrhage is seen. Ventricles: Unremarkable. No ventriculomegaly. Bones/joints: Unremarkable. No acute fracture. Soft tissues: Unremarkable. Sinuses: Unremarkable as visualized. No acute sinusitis. Mastoid air cells: Unremarkable as visualized. No mastoid effusion. IMPRESSION: Mild cerebral atrophy and periventricular white matter low density consistent with chronic small vessel disease and/or senescent changes. No acute large vessel infarct or intracranial hemorrhage is seen. Electronically signed by: Levon Rosas MD 02/18/25 21:25 PM
--- NOTE | 2025-02-18 21:30 | CT Scan Report ---
Exam(s): CT C SPINE EXAM: CT Cervical Spine Without Intravenous Contrast CLINICAL HISTORY: Reason for exam: fall from standing. TECHNIQUE: Axial computed tomography images of the cervical spine without intravenous contrast. CTDI is 37 mGy and DLP is 1597 mGy-cm. Automated exposure control was utilized for the study. A dose lowering technique was utilized adhering to the principles of ALARA. COMPARISON: No relevant prior studies available. FINDINGS: Vertebrae: Previous instrumentation and fusion of the C1-2 level. Degenerative fusion of C4 through C7. No acute fracture. Soft tissues: Mild calcification of the carotid bifurcation bilaterally. DISCS/SPINAL CANAL/NEURAL FORAMINA: C2-C3: Degenerative fusion of C2-3. No stenosis. C3-C4: Unremarkable. No significant disc disease. No stenosis. C4-C5: Degenerative fusion. Spinal stenosis measuring 8 mm. C5-C6: Degenerative fusion. Spinal stenosis measuring 9 mm. C6-C7: Degenerative fusion. No stenosis. C7-T1: Moderate degenerative disc disease. No stenosis. IMPRESSION: 1. Previous instrumentation and fusion of the C1-2 level. 2. [id number] multilevel degenerative disc disease and facet arthrosis. There is straightening of the normal cervical curvature suggesting spasm. No acute fracture or subluxation is seen. Electronically signed by: Levon Rosas MD 02/18/25 21:29 PM
--- NOTE | 2025-02-18 21:36 | CT Scan Report ---
Exam(s): CT L SPINE With Contrast IV Amt: 93ml opti 320 EXAM: CT Lumbar Spine With Intravenous Contrast CLINICAL HISTORY: Reason for exam: fall from standing. TECHNIQUE: Axial computed tomography images of the lumbar spine with intravenous contrast. CTDI is 37 mGy and DLP is 1597 mGy-cm. Automated exposure control was utilized for the study. A dose lowering technique was utilized adhering to the principles of ALARA. CONTRAST: Patient received 93ml Optiray 320 of IV contrast COMPARISON: Plain films from 09/20/2023 FINDINGS: Vertebrae: There is a new compression fracture at L4 status post kyphoplasty. There is also a 15% superior endplate compression fracture of L3, likely chronic but new since 2023. Soft tissues: Unremarkable. DISCS/SPINAL CANAL/NEURAL FORAMINA: L1-L2: Moderate degenerative disc disease. No stenosis. L2-L3: Mild degenerative disc disease. No stenosis. L3-L4: Mild degenerative disc disease. No stenosis. L4-L5: Mild degenerative disc disease. No stenosis. L5-S1: Moderate degenerative disc disease. No stenosis. IMPRESSION: 1. There is a new compression fracture at L4 status post kyphoplasty. There is also a 15% superior endplate compression fracture of L3, likely chronic but new since 2023. If there is clinical concern for acute compression fracture, consider MRI or bone scan for further characterization. 2. Dpsg-[id number] multilevel degenerative disc disease throughout the lumbar spine, similar to previous. Electronically signed by: Levon Rosas MD 02/18/25 21:35 PM
--- NOTE | 2025-02-18 21:39 | CT Scan Report ---
Exam(s): CT ABDOMEN + PELVIS With Contrast IV Amt: 93ml opti 320 EXAM: CT Abdomen and Pelvis With Intravenous Contrast CLINICAL HISTORY: Reason for exam: low back/pelvis pain s/p fall. TECHNIQUE: Axial computed tomography images of the abdomen and pelvis with intravenous contrast. CTDI is 37 mGy and DLP is 1597 mGy-cm. Automated exposure control was utilized for the study. A dose lowering technique was utilized adhering to the principles of ALARA. CONTRAST: Patient received 93ml Optiray 320 of IV contrast COMPARISON: 09/04/2017 FINDINGS: Lung bases: Unremarkable. No mass. No consolidation. Heart: Mild cardiomegaly and moderate coronary calcification. ABDOMEN: Liver: Unremarkable. No mass. Gallbladder and bile ducts: Previous cholecystectomy. No ductal dilation. Pancreas: Unremarkable. No mass. No ductal dilation. Spleen: Unremarkable. No splenomegaly. Adrenals: Unremarkable. No mass. Kidneys and ureters: Nonobstructive 2 mm caliceal calculus in the lower pole of the left kidney. No hydronephrosis or ureterolithiasis is seen. Stomach and bowel: See below. PELVIS: Appendix: The appendix is normal. 7.7 cm of stool in the cecum is mildly dilated suggesting constipation. No focal bowel wall inflammation, pneumoperitoneum, or free fluid is identified. Bladder: Unremarkable. No mass. Reproductive: Unremarkable as visualized. ABDOMEN and PELVIS: Intraperitoneal space: See above. Bones/joints: Mild osteoarthritic changes in both hips. No hip or pelvic fracture is identified. No dislocation. Soft tissues: Unremarkable. Vasculature: The abdominal aorta is heavily calcified but nondilated. There is no aneurysm or dissection. Lymph nodes: Unremarkable. No enlarged lymph nodes. IMPRESSION: 1. The appendix is normal. 7.7 cm of stool in the cecum is mildly dilated suggesting constipation. No focal bowel wall inflammation, pneumoperitoneum, or free fluid is identified. 2. Mild osteoarthritic changes in both hips. No hip or pelvic fracture is identified. 3. No solid organ injury or free fluid is seen within the abdomen or pelvis. Electronically signed by: Levon Rosas MD 02/18/25 21:38 PM
--- NOTE | 2025-02-18 23:57 | History & Physical Report ---
Date of Service February 18, 2025 Assessment & Plan (1) Fall: (2) Ambulatory dysfunction: (3) Closed compression fracture of L4 vertebra: (4) A-fib: (5) Hypertension: (6) CAD (coronary artery disease): (7) Diabetes mellitus: Plan Patient is an 84-year-old male with past medical history of CAD, atrial fibrillation with recent placement of Watchman, hypertension, HFpEF and diabetes mellitus type 2 who was admitted after sustaining a fall at home secondary to ambulatory dysfunction. Ambulatory dysfunction Fall Has been present for a while, but they have been unable to set up home physical therapy Will admit to [facility] Fall precautions PT/OT consult Tylenol jayy for pain control, with oxycodone for moderate and severe pain. A-fib Currently in normal sinus rhythm Eliquis was discontinued few months back due to frequent falls; watchman placed Patient states that he was meant to have a KWAME done in the next few days but would likely reschedule it given that he is in the hospital at this time Continue home metoprolol DM-II Uses metformin at home Hemoglobin A1c from 01/2025 showing level of 5.4% Carb consistent diet Bsg checks and SSI History of Present Illness Chief Complaint: Fall Primary Care Provider: Fidelia Chapa DO Patient is an 84-year-old male with past medical history of CAD, atrial fibrillation with recent placement of Watchman, hypertension, HFpEF and diabetes mellitus type 2 who came to the emergency department after experiencing a fall earlier today. Patient's relatives at bedside and states that, although patient does live with his , his is currently also admitted and thus they have tried to help the patient out at their home. Patient has been having weakness and trouble with ambulation due to months. Was initially giving a prescription for physical therapy to try and set it up at home, however, this was not successful and thus he has not received physical therapy. Patient describes that when he is ambulating he feels like "he is pushed back "prior to falling. In addition to this, patient's relative states that, although patient was advised to use a cane or a walker, patient does not use either 1 of these. Earlier today, patient was in the bathroom trying to lift one of his lower extremities to reach better for washing, but lost his balance and fell. Patient denies having any preceding symptoms and denies having any head trauma or loss of consciousness. As the day went on, patient was able to walk but he started getting progressively worsening lower back and coccygeal pain which led to him going to the emergency department for further evaluation. Patient does have a long history of lower back pain for which he is being seen by pain clinic and had a recent L-spine MRI done in [facility] in [place], but current fall just exacerbated his symptoms. Denies having any urinary incontinence, saddle anesthesia, sensorial changes in the lower extremities, fevers, chills, or any other symptom. ED Course: Given Benadryl 50 mg IV x 1, methylprednisolone 40 mg IV x 1, lidocaine patch applied in the ED, given morphine 2 mg IV x 1, and fentanyl 50 mcg IV x 1 Labs/Imaging: CBC with mild leukocytosis of 11.73 with neutrophilic predominance, hemoglobin of 16.1, and platelets of 168. CMP without significant electrolyte abnormalities, creatinine of 0.94, glucose of 186. LFTs unremarkable. Troponin of 21.1 with 2-hour repeat showing level of 21.8. Lipase of 12. UA unremarkable. Chest x-ray showing low lung volumes with bronchovascular crowding and mild bibasilar atelectasis versus edema or infiltrates. Pelvic x-ray without acute fractures. Head CT without acute changes. CT abdomen pelvis showing signs suggestive of constipation but no other significant finding. C-spine CT unremarkable. L-spine CT with multilevel DDD, possible new compression fracture at L4 status post kyphoplasty as well as a 15% superior endplate compression fracture of L3 that is likely chronic but new since 2023 Medical History: [Reviewed] Medications: [Reviewed] Surgical History: [Reviewed] Family history: [Reviewed] Allergies: [Reviewed] Social History: [Reviewed] Code Status: FULL Allergies Allergy/AdvReac Type Severity Reaction Status Date / Time Iodinated Contrast Media Allergy Severe HIVES Verified 02/18/25 21:57 amoxicillin Allergy Intermediate HIVES Verified 02/18/25 21:57 bee venom protein (honey bee) Allergy Intermediate HIVES Verified 02/18/25 21:57 cortisone Allergy Intermediate SKIN Verified 02/18/25 21:57 IRRITATION iodine Allergy Intermediate HIVES Verified 02/18/25 21:57 Penicillins Allergy Intermediate HIVES Verified 02/18/25 21:57 lorazepam AdvReac Mild MAKES HIM Verified 02/18/25 21:57 GOOFY Home Medications Medication Instructions Recorded Confirmed Type aspirin 81 mg tablet,delayed 81 mg PO HS 01/04/19 02/18/25 History release amitriptyline 100 mg tablet 100 mg PO HS 10/12/24 02/18/25 History finasteride 5 mg tablet 5 mg PO DAILY 10/12/24 02/18/25 History hydrocodone 5 mg-acetaminophen 325 2 tab PO Q12 10/12/24 02/18/25 History mg tablet metformin 500 mg tablet 500 mg PO BIDM 10/12/24 02/18/25 History potassium chloride 10 mEq 10 meq PO BID 10/12/24 02/18/25 History capsule,extended release rosuvastatin 10 mg tablet 10 mg PO QAM 10/12/24 02/18/25 History furosemide 80 mg tablet 80 mg PO QAM #30 tabs 01/15/25 02/18/25 Rx metoprolol succinate 25 mg 25 mg PO QAM #30 tabs 01/15/25 02/18/25 Rx tablet,extended release 24 hr acetaminophen 650 mg 1,300 mg PO Q12H 02/18/25 02/18/25 History tablet,extended release (Tylenol Arthritis Pain) pantoprazole 40 mg tablet,delayed 40 mg PO QAM 02/18/25 02/18/25 History release Past Med/Surg History Problem List (Updated 02/19/25 @ 01:00 by Background Daemon) Elevated troponin (Acute) Ambulatory dysfunction (Acute) Closed compression fracture of L4 vertebra (Acute) Acute low back pain (Acute) Fall (Acute) Chest pain (Acute) Atrial fibrillation with RVR (Acute) Heart failure with preserved ejection fraction Erysipelas of face Acute on chronic congestive heart failure Trochanteric bursitis, right hip Trochanteric bursitis of left hip Benign prostatic hyperplasia with urinary obstruction (Acute) Incomplete bladder emptying (Acute) Nephrolithiasis (Acute) Dyslipidemia (Chronic) BPH (benign prostatic hyperplasia) (Chronic) A-fib (Chronic) Medical History (Updated 02/19/25 @ 01:00 by Background Daemon) CAD (coronary artery disease) Right bundle branch block Diabetes mellitus Hypertension GERD (gastroesophageal reflux disease) CAD (coronary artery disease) Surgical History History of elbow surgery History of cervical spinal arthrodesis History of cholecystectomy Family History Mother Cardiac disorder Father Cardiac disorder Social History Smoking Status: Never smoker Second Hand Exposure: No; Do You Dip or Chew Tobacco: No; Tobacco Cessation Education Requested by Patient: No Hx Alcohol Use: No Hx Substance Use: No Preferred Language: [place] Communication Ability: Effective Art Therapist Required: No Beliefs That Will Affect Care: None Current Living Situation: Spouse Other Information That Helps Us Care for You: No Feels Safe at Home: Yes Safety Concerns: Feels Safe At This Time Assistive Devices: Glasses and Walker Review of Systems Review of Systems: As per HPI Physical Exam Physical Exam: GENERAL: Awake alert and oriented, afebrile, calm, no acute distress HEAD: Atraumatic, normocephalic THROAT: Visual inspection CHEST: Symmetric chest expansions with respirations CARDIO: First PULMONARY: Clear to auscultation bilaterally, normal respiratory effort, no respiratory distress GI: Soft, nontender EXTREMITIES: No swelling or calf tenderness in bilateral lower extremities Results & Data Results & Data Vital Signs (Past 12 Hours) Vital Signs Temp Pulse Pulse Resp BP BP Pulse Ox 02/18/25 23:45 63 02/18/25 23:43 87 L 02/18/25 23:30 66 20 169/60 H 92 02/18/25 23:00 75 20 168/85 H 98 02/18/25 22:00 71 16 170/85 H 92 02/18/25 21:00 80 20 169/96 H 92 02/18/25 20:47 79 16 169/96 H 92 02/18/25 20:22 95 H 02/18/25 19:47 36.8 C 95 H 20 151/108 H 95 02/18/25 19:41 95 H 20 90 02/18/25 19:13 36.9 C 93 H 21 151/108 H 91 O2 Del Method O2 Flow Rate 02/18/25 23:45 02/18/25 23:43 Nasal Cannula 0 02/18/25 23:30 Room Air 02/18/25 23:00 Room Air 02/18/25 22:00 Room Air 02/18/25 21:00 Room Air 02/18/25 20:47 Room Air 02/18/25 20:22 02/18/25 19:47 Room Air 02/18/25 19:41 Room Air 02/18/25 19:13 Room Air Supervising Physician Co-Signing Physician Notes Attending addendum: I have physically seen this patient, have supervised the medical residents activities, and agree with the H&P unless as otherwise noted. Assessment and Plan: The patient is an 84-year-old male with past medical history including CAD, atrial fibrillation status post Watchman, hypertension, HFpEF, BPH with LUTS, and diabetes mellitus type 2. He presents to the emergency department after a fall and progressive ambulatory dysfunction. Ambulatory dysfunction/status post fall- Admit to medical surgical Fall precautions Consult PT/OT Acetaminophen 650 mg by mouth every 6 hours as needed for mild pain or fever Oxycodone 5 mg by mouth every 6 hours as needed for moderate pain Oxycodone 10 mg by mouth every 6 hours as needed for severe pain Elevated troponin/atrial fibrillation/HFpEF/CAD- Troponin 21.8 with follow-up pending. Supply/demand mismatch S/p placement of Watchman Warfarin discontinued due to frequent falls Continue metoprolol, potassium chloride and furosemide Diabetes mellitus- Hold metformin Place on Accu-Cheks with NovoLog Hyperlipidemia- Continue rosuvastatin BPH with LUTS- Continue finasteride GERD- Continue pantoprazole Resident Activity Tracking Resident Involvement: Resident Care Provided Care Provided: Adult Hospital Medicine (6) CAD (coronary artery disease) Associated angina: unspecified whether angina present Coronary Disease- Associated Artery/Lesion type: unspecified vessel or lesion type [place] vs. transplanted heart: [place] heart Qualified Code(s): I25.10 - Atherosclerotic heart disease of [place] coronary artery without angina pectoris
[2025-02-19 00:25] LABS: Appearance Urine Clear (Clear); Glucose Urine UA Negative (Negative)
[2025-02-19 00:36] LABS: Bacteria Urine Automated None Seen (None Seen); Cast Urine Automated 0-2 /lpf (0-2); Epithelial Cell Urine Auto 0-2 /hpf (0-2); RBC Urine Automated 0-2 /hpf (0-2); WBC Urine Automated 0-5 /hpf (0-5)
[2025-02-19] MEDS ORDERED: POLYETHYLENE (MIRALAX) 17 GM PACK PO PRN (01:09)
[2025-02-19] MEDS ORDERED: MELATONIN 3 MG TAB PO PRN (01:09)
[2025-02-19] MEDS ORDERED: ONDANSETRON INJ 2 MG/ML 2 ML VIAL IV PRN (01:09)
[2025-02-19] MEDS ORDERED: GLUCAGON FOR INJ 1 MG VIAL SQ PRN (02:42)
[2025-02-19] MEDS ORDERED: CARBOHYDRATES FOR HYPOGLYCEMIA PO PRN (02:42)
[2025-02-19] MEDS ORDERED: DEXTROSE 50% 50 ML SYRINGE IV PRN (02:42)
[2025-02-19] MEDS ORDERED: GLUCOSE 40% GEL 15 GM TUBE PO PRN (02:42)
[2025-02-19] MEDS ORDERED: GLUCOSE 10 TAB/TUBE PO PRN (02:42)
[2025-02-19 04:41] LABS: Hematocrit (blood only) 43.3 % (42.0-52.0); Hemoglobin 15.3 g/dl (14.0-18.0); Mean Corpuscular Hemoglobin 31.4 pg (25.0-34.0); Mean Corpuscular Volume 88.7 fL (80.0-100.0); Platelet Count 158 K/uL (130-400); RDW Standard Deviation 41.9 fL (36.4-46.3); Red Blood Count 4.88 M/uL (4.70-6.10); White Blood Count 8.29 K/ul (4.8-10.8)
[2025-02-19 04:58] LABS: Anion Gap 8.0 (3-11); Blood Urea Nitrogen 21.0 mg/dl (6-23); Calcium 8.9 mg/dl (8.6-10.3); Carbon Dioxide 26.0 mmol/L (21-32); Chloride 104.0 mmol/L (98-107); Creatinine Clr Calc Pharmacy 64.3 ml/min; Glucose 210.0 mg/dl (70-99(Fasting)); Potassium 4.2 mmol/L (3.5-5.1); Sodium 138.0 mmol/L (136-145)
[2025-02-19 05:04] LABS: Immature Granulocytes # (auto) 0.04 K/uL (0.01-0.20); Immature Granulocytes % (auto) 0.5 %; RBC Morphology Unremarkable
[2025-02-19] MEDS: ACETAMINOPHEN 500 MG TAB PO SCH (05:19)
--- NOTE | 2025-02-19 06:30 | Billing Data ---
Date of Service February 19, 2025 Coding Level of Care Code 00692 INT INP/OBS CARE
[2025-02-19] MEDS: POLYETHYLENE (MIRALAX) 17 GM PACK PO SCH (08:15)
[2025-02-19] MEDS: POTASSIUM CHLORIDE 10 MEQ TABCR PO SCH (08:15)
[2025-02-19] MEDS: FUROSEMIDE 80 MG TAB PO SCH (08:40)
[2025-02-19] MEDS: METOPROLOL SUCC 25MG EXT REL TAB PO SCH (08:40)
[2025-02-19] MEDS: FINASTERIDE 5 MG TAB PO SCH (08:40)
[2025-02-19] MEDS: ROSUVASTATIN CALCIUM 10 MG TAB PO SCH (08:41)
[2025-02-19] MEDS: INSULIN ASPART PER UNIT CHARGE SC SCH (08:43)
--- NOTE | 2025-02-19 09:18 | Hospitalist Progress Note ---
"Date of Service February 19, 2025 Assessment & Plan (1) Closed compression fracture of L4 vertebra: (2) Fall: (3) Ambulatory dysfunction: Plan Patient is an 84-year-old male with past medical history of CAD, atrial fibrillation with recent placement of Watchman, hypertension, HFpEF and diabetes mellitus type 2 who was admitted after sustaining a fall at home secondary to ambulatory dysfunction. Patient was supposed to have outpatient physical therapy set up at home, however was not successful with coordinating this so he has not received any PT. He lives at home with his but unfortunately she is also admitted to the hospital. He was admitted for ambulatory dysfunction and therapy evaluations. #Ambulatory dysfunction | Fall | Age-related osteoporosis with current pathologic fracture, L4 vertebra - Lumbar CT with acute L4 compression fracture and possible L3 superior endplate compression fracture. Other imaging overall unremarkable including head CT, CXR, CT C-spine, CT A/P, pelvis x-ray. - Pain regimen: Tylenol jayy, oxycodone 5-10 mg PRN mod-severe pain, lidocaine patch daily - Start calcitonin nasal spray daily - Fall precautions - PT/OT recommending rehab #A-fib | HFpEF | CAD | Elevated troponin - In normal sinus rhythm on admission. Eliquis was discontinued few months back due to frequent falls; watchman recently placed. Patient states that he was meant to have a KWAME done in the next few days but would likely reschedule it given that he is in the hospital at this time. - Mild troponin elevation at 21 x 2. EKG without ischemic changes. Suspect secondary to demand ischemia - Continue home metoprolol, potassium chloride, furosemide #DM-II - Hemoglobin A1c in 01/2025 5.4% - Uses metformin at home - Continue SSI while admitted #Hyperlipidemiacontinue rosuvastatin #BPH with LUTScontinue finasteride #GERDcontinue pantoprazole VTE PPx: SCDs Dispo: PT/OT recommending rehab, however patient is declining at this time. He is potentially open to home health services, needs to think about it and discuss with his . Adjusted pain regimen Started calcitonin nasal spray and SCDs Discussed discharge planning with case management Admission and Anticipated Discharge Date Admission Date: February 18, 2025 Supervising Physician Co-Signing Physician Notes ЕКАТЕРИНА Supervision Note: I did not personally see or examine the patient today, but I verified all baltazar points of ЕКАТЕРИНА Hanna's assessment and plan with the following exceptions/additions: None Subjective Patient seen and evaluated at bedside. He reports lumbar back pain. He currently rates it 8/10 and thinks he is due for pain medication soon. He reports his pain is improved when remaining still but bothers him the most when getting in/out of bed. We discussed therapy's recommendation of going to short- term rehab, he declines. We discussed home health and he reports he will have to check in with his to see if she is okay with having people come into their home. He denies any additional complaints or concerns at this time. Review of Systems Review of Systems: All systems reviewed & are unremarkable except as noted in HPI & below Musculoskeletal: + back pain (Lumbar) Physical Exam Physical Exam: General: No acute distress, nondiaphoretic, well-developed, well-nourished. Skin: Warm, dry. Scattered bruising noted throughout extremities. Bilateral elbows and knees covered with Optifoam's. No rashes or peripheral edema noted. Cardiac: Regular rate and rhythm without murmurs gallops or rubs. Pulm: Clear to auscultation bilaterally without wheezes, rales or rhonchi. Normal respiratory effort. 94% on 2 L NC. Abdominal: Soft, nontender, nondistended. Bowel sounds present. Back: Tender to palpation of lumbar spine. Neuro: A&O x3. No focal neurological deficits. Results & Data Results & Data Vital Signs (Past 12 Hours) Vital Signs Temp Pulse Pulse Resp BP Pulse Ox O2 Del Method 02/19/25 07:46 97.9 F 70 18 156/78 H 94 Nasal Cannula 02/19/25 05:20 97.9 F 65 18 159/81 H 93 Nasal Cannula 02/19/25 05:15 Nasal Cannula 02/19/25 01:00 65 17 164/88 H 96 Nasal Cannula 02/19/25 01:00 65 17 164/88 H 96 Nasal Cannula 02/19/25 00:00 64 19 153/73 H 96 Nasal Cannula 02/18/25 23:45 63 02/18/25 23:43 87 L Nasal Cannula 02/18/25 23:30 66 20 169/60 H 92 Room Air 02/18/25 23:00 75 20 168/85 H 98 Room Air 02/18/25 22:00 71 16 170/85 H 92 Room Air O2 Flow Rate 09/09/25 07:46 2 02/19/25 05:20 2 02/19/25 05:15 2 02/19/25 01:00 2 02/19/25 01:00 2 02/19/25 00:00 2 02/18/25 23:45 02/18/25 23:43 0 02/18/25 23:30 02/18/25 23:00 02/18/25 22:00 Laboratory Results Reviewed CBC with differential Reviewed BMP, chemistries Reviewed UA Diagnostic Findings Reviewed CT A/P, CT C-spine, CXR, head CT, L-spine CT, pelvis x-ray PG Care Time/CCT Total # of Minutes Spent Total Time Spent with Patient: Total time spent is greater than 50% in coordination of care (as documented) at patient's floor/unit and/or counseling patient: Coding Level of Care Code 89722 SUB INP/OBS CARE 3/50MIN Diagnoses Closed compression fracture of L4 vertebra S32.040A Fall W19.XXXA Ambulatory dysfunction R26.2"
[2025-02-19] MEDS: LIDOCAINE 5% 1 PATCH TD SCH (09:42)
[2025-02-19] MEDS: CALCITONIN SALMON NA 200 IU/AC 3.7 ML BTL SCH (09:42)
--- NOTE | 2025-02-19 09:48 | Electrocardiogram Report ---
Test Reason : Blood Pressure : */* mmHG Vent. Rate : 86 BPM Atrial Rate : 86 BPM P-R Int : 164 ms QRS Dur : 162 ms QT Int : 430 ms P-R-T Axes : 250 122 26 degrees QTcB Int : 514 ms Unusual P axis, possible ectopic atrial rhythm Right bundle branch block Left posterior fascicular block Bifascicular block Anteroseptal infarct , age undetermined T wave abnormality, consider inferior ischemia Abnormal ECG When compared with ECG of 15-Jan-2025 10:52, Ectopic atrial rhythm has replaced Sinus rhythm Vent. rate has increased by 35 bpm Right bundle branch block has replaced Non-specific intra-ventricular conduction block Anteroseptal infarct is now Present Confirmed by Vernon Posey ([id number]) on 02/19/2025 9:47:49 AM Referred By: REFERRED SELF Confirmed By: Vernon Posey
[2025-02-19] MEDS: ASPIRIN 81 MG ECTAB PO SCH (20:58)
[2025-02-19] MEDS: AMITRIPTYLINE HCL 100 MG TAB PO SCH (20:58)
[2025-02-19] MEDS: REMOVE LIDODERM PATCH SCH (20:58)
[2025-02-20] MEDS: ENOXAPARIN INJ 40 MG/0.4 ML SYR SQ SCH (09:17)
--- NOTE | 2025-02-20 10:30 | Discharge Summary ---
Discharge Summary Date of Service February 20, 2025 Principal Dx & Hospital Course #1 = Principal Diagnosis (1) Closed compression fracture of L4 vertebra: (2) Fall: (3) Ambulatory dysfunction: Plan Patient is an 84-year-old male with past medical history of CAD, atrial fibrillation with recent placement of Watchman, hypertension, HFpEF and diabetes mellitus type 2 who was admitted after sustaining a fall at home secondary to ambulatory dysfunction. Patient was supposed to have outpatient physical therapy set up at home, however was not successful with coordinating this so he has not received any PT. He lives at home with his but unfortunately she is also admitted to the hospital. He was admitted for ambulatory dysfunction and therapy evaluations. #Ambulatory dysfunction | Fall | Age-related osteoporosis with current pathologic fracture, L4 vertebra - Lumbar CT with acute L4 compression fracture and possible L3 superior endplate compression fracture. Other imaging overall unremarkable including head CT, CXR, CT C-spine, CT A/P, pelvis x-ray. - Pain regimen: Tylenol jayy, oxycodone 5-10 mg PRN mod-severe pain, lidocaine patch daily - continued on discharge - Started on calcitonin nasal spray daily - continue for 1 month on discharge - PT/OT recommended rehab, patient initially declined but since his is also admitted to the hospital and he would therefore be home alone, was ultimately agreeable to going to [facility] for rehab - Recommend evaluation for treatment of osteoporosis in outpatient setting #A-fib | HFpEF | CAD | Elevated troponin - In normal sinus rhythm on admission. Eliquis was discontinued few months back due to frequent falls; watchman recently placed. Patient states that he was meant to have a KWAME done in the next few days but would likely reschedule it given that he is in the hospital at this time. - Mild troponin elevation at 21 x 2. EKG without ischemic changes. Suspect secondary to demand ischemia - Continue home metoprolol, potassium chloride, furosemide #DM-II - Hemoglobin A1c in 01/2025 5.4% - Uses metformin at home, continued on discharge - Continue SSI while admitted #Hyperlipidemiacontinue rosuvastatin #BPH with LUTScontinue finasteride #GERDcontinue pantoprazole VTE PPx: SCDs Dispo: Discharged to [facility] 02/20 Notes For Next Care Provider Recommend evaluation for treatment of osteoporosis given pathologic compression fracture from ground-level fall. Tra will need his KWAME rescheduled outpatient. Medication Changes From Visit Calcitonin nasal spray daily x 1 month Lidocaine patch daily Oxycodone 5-10 mg every 6 hours as needed Admission HPI Per Admitting Provider Patient is an 84-year-old male with past medical history of CAD, atrial fibrillation with recent placement of Watchman, hypertension, HFpEF and diabetes mellitus type 2 who came to the emergency department after experiencing a fall earlier today. Patient's relatives at bedside and states that, although patient does live with his , his is currently also admitted and thus they have tried to help the patient out at their home. Patient has been having weakness and trouble with ambulation due to months. Was initially giving a prescription for physical therapy to try and set it up at home, however, this was not successful and thus he has not received physical therapy. Patient describes that when he is ambulating he feels like "he is pushed back "prior to falling. In addition to this, patient's relative states that, although patient was advised to use a cane or a walker, patient does not use either 1 of these. Earlier today, patient was in the bathroom trying to lift one of his lower extremities to reach better for washing, but lost his balance and fell. Patient denies having any preceding symptoms and denies having any head trauma or loss of consciousness. As the day went on, patient was able to walk but he started getting progressively worsening lower back and coccygeal pain which led to him going to the emergency department for further evaluation. Patient does have a long history of lower back pain for which he is being seen by pain clinic and had a recent L-spine MRI done in [facility] in [place], but current fall just exacerbated his symptoms. Denies having any urinary incontinence, saddle anesthesia, sensorial changes in the lower extremities, fevers, chills, or any other symptom. ED Course: Given Benadryl 50 mg IV x 1, methylprednisolone 40 mg IV x 1, lidocaine patch applied in the ED, given morphine 2 mg IV x 1, and fentanyl 50 mcg IV x 1 Labs/Imaging: CBC with mild leukocytosis of 11.73 with neutrophilic predominance, hemoglobin of 16.1, and platelets of 168. CMP without significant electrolyte abnormalities, creatinine of 0.94, glucose of 186. LFTs unremarkable. Troponin of 21.1 with 2-hour repeat showing level of 21.8. Lipase of 12. UA unremarkable. Chest x-ray showing low lung volumes with bronchovascular crowding and mild bibasilar atelectasis versus edema or infiltrates. Pelvic x-ray without acute fractures. Head CT without acute changes. CT abdomen pelvis showing signs suggestive of constipation but no other significant finding. C-spine CT unremarkable. L-spine CT with multilevel DDD, possible new compression fracture at L4 status post kyphoplasty as well as a 15% superior endplate compression fracture of L3 that is likely chronic but new since 2023 Medical History: [Reviewed] Medications: [Reviewed] Surgical History: [Reviewed] Family history: [Reviewed] Allergies: [Reviewed] Social History: [Reviewed] Code Status: FULL Discharge Exam General: No acute distress, nondiaphoretic, well-developed, well-nourished. Skin: Warm, dry. Scattered bruising noted throughout extremities. Bilateral elbows and knees covered with Optifoam's. No rashes or peripheral edema noted. Cardiac: Regular rate and rhythm without murmurs gallops or rubs. Pulm: Clear to auscultation bilaterally without wheezes, rales or rhonchi. Normal respiratory effort. 94% on room air. Abdominal: Soft, nontender, nondistended. Bowel sounds present. Back: Tender to palpation of lumbar spine. Neuro: A&O x3. No focal neurological deficits. Discharge Plan Discharge Items Patient Disposition: Transfer Inpatient Rehab Fac Reason For Visit: FALL Discharge Diagnosis: L4 compression fracture Condition on Discharge: Fair Activity: Resume your previous activity Non-emergency contact: Primary Care Provider Call non-emergency contact if: you have any medication questions, your symptoms worsen and your pain is not controlled Follow-up/Referrals: Fidelia Chapa DO [Primary Care Provider] - (Follow-up in 1-2 weeks) Diet: Carb Consistent or DM2 and Heart Healthy Addtl Attending Provider Instructions: Tra, You were admitted to the hospital after a fall resulted in an L4 vertebral compression fracture. Luckily, your other imaging was negative including head CT, chest x-ray, cervical spine CT, CT abdomen and pelvis, pelvis x-ray. You are being discharged to [facility] for rehab. Upon discharge from the hospital: * Take Tylenol 1000 mg 3 times daily as your first-line pain medication. * Take oxycodone 5-10 mg every 6 hours as needed for severe pain. Do not drive or operate heavy machinery while taking oxycodone as it is a narcotic pain medication. * Use calcitonin nasal spray daily for 1 month 1 spray daily, alternating nostrils. This helps with compression fracture related pain. * Apply lidocaine patch to your lumbar spine, wear for 12 hours, remove for 12 hours, repeat. * Follow-up with your PCP in 1-2 weeks. * Continue your other home medications as prescribed. There were no changes made to your usual home medicines. Please return to the hospital if you experience any of the following: Uncontrolled pain, repeated falls, chest pain, difficulty breathing, passing out, confusion, or any other symptoms concerning for you. It was a pleasure taking care of you while you were in the hospital! Pending Studies at Discharge: No Stand-Alone Forms: My [employer], Smoking Cessation Skilled Items Patient informed of condition?: Yes DNR: No Discharge Level of Care: Acute rehab Communicable Disease: No Discharge Prognosis: Stable Lines: None Urinary Catheter: No Medications and DC Order Prescriptions: New calcitonin (salmon) 200 unit/actuation [place],Non-Aerosol 1 spray NA DAILY Qty: 3.7 0RF Rx Instructions: Alternate nares each day lidocaine 5 % Adhesive Patch,Medicated 1 patch transdermal QAM Qty: 30 0RF oxycodone 10 mg tablet 10 mg PO Q6H PRN (Reason: pain) Qty: 14 0RF Continued aspirin 81 mg tablet,delayed release (DR/EC) 81 mg PO HS Patient Comments: 01/13- otc unable to verify furosemide 80 mg Tablet 80 mg PO QAM Qty: 30 0RF metoprolol succinate 25 mg Tablet Extended Release 24 Hr 25 mg PO QAM Qty: 30 0RF metformin 500 mg tablet 500 mg PO BIDM potassium chloride 10 mEq capsule, extended release 10 meq PO BID amitriptyline 100 mg tablet 100 mg PO HS finasteride 5 mg tablet 5 mg PO DAILY rosuvastatin 10 mg tablet 10 mg PO QAM acetaminophen [Tylenol Arthritis Pain] 650 mg Tablet Extended Release 1,300 mg PO Q12H pantoprazole 40 mg tablet,delayed release (DR/EC) 40 mg PO QAM Discontinued hydrocodone-acetaminophen 5-325 mg tablet 2 tab PO Q12 Patient Comments: 01/13- last filled 11/26 30 day supply #120 Rx Instructions: for 30 days Discharge Orders: Discharge Order (Routine); Ordered 02/20/25 Ordered By: Ambar Hart/Other Patient Handouts: Staff Ed: Back Safety, Compression Fx, [id number]: Safe Lifting Admission Data Admit Date/Time: 02/18/25 23:53 Attending Provider: Maritza Harding Admit Provider: Lynn Stafford Primary Care Provider: Fidelia Chapa Other Providers: Gaetano Frederick; [facility]; [facility] Other Interventions: Discharge Summary Assessment (RN) Last Done: 02/20/25 11:03 Hospital Stay Data Consultations 02/18/25 23:03 ED Decision to Admit Stat Diagnostic Imagining Performed Abdomen/Pelvis CT 02/18/25 19:41 Exam(s): CT ABDOMEN + PELVIS With Contrast IV Amt: 93ml opti 320 EXAM: CT Abdomen and Pelvis With Intravenous Contrast CLINICAL HISTORY: Reason for exam: low back/pelvis pain s/p fall. TECHNIQUE: Axial computed tomography images of the abdomen and pelvis with intravenous contrast. CTDI is 37 mGy and DLP is 1597 mGy-cm. Automated exposure control was utilized for the study. A dose lowering technique was utilized adhering to the principles of ALARA. CONTRAST: Patient received 93ml Optiray 320 of IV contrast COMPARISON: 09/04/2017 FINDINGS: Lung bases: Unremarkable. No mass. No consolidation. Heart: Mild cardiomegaly and moderate coronary calcification. ABDOMEN: Liver: Unremarkable. No mass. Gallbladder and bile ducts: Previous cholecystectomy. No ductal dilation. Pancreas: Unremarkable. No mass. No ductal dilation. Spleen: Unremarkable. No splenomegaly. Adrenals: Unremarkable. No mass. Kidneys and ureters: Nonobstructive 2 mm caliceal calculus in the lower pole of the left kidney. No hydronephrosis or ureterolithiasis is seen. Stomach and bowel: See below. PELVIS: Appendix: The appendix is normal. 7.7 cm of stool in the cecum is mildly dilated suggesting constipation. No focal bowel wall inflammation, pneumoperitoneum, or free fluid is identified. Bladder: Unremarkable. No mass. Reproductive: Unremarkable as visualized. ABDOMEN and PELVIS: Intraperitoneal space: See above. Bones/joints: Mild osteoarthritic changes in both hips. No hip or pelvic fracture is identified. No dislocation. Soft tissues: Unremarkable. Vasculature: The abdominal aorta is heavily calcified but nondilated. There is no aneurysm or dissection. Lymph nodes: Unremarkable. No enlarged lymph nodes. IMPRESSION: 1. The appendix is normal. 7.7 cm of stool in the cecum is mildly dilated suggesting constipation. No focal bowel wall inflammation, pneumoperitoneum, or free fluid is identified. 2. Mild osteoarthritic changes in both hips. No hip or pelvic fracture is identified. 3. No solid organ injury or free fluid is seen within the abdomen or pelvis. Electronically signed by: Levon Rosas MD 02/18/25 21:[address] 02/18/25 19:41 Exam(s): CT C SPINE EXAM: CT Cervical Spine Without Intravenous Contrast CLINICAL HISTORY: Reason for exam: fall from standing. TECHNIQUE: Axial computed tomography images of the cervical spine without intravenous contrast. CTDI is 37 mGy and DLP is 1597 mGy-cm. Automated exposure control was utilized for the study. A dose lowering technique was utilized adhering to the principles of ALARA. COMPARISON: No relevant prior studies available. FINDINGS: Vertebrae: Previous instrumentation and fusion of the C1-2 level. Degenerative fusion of C4 through C7. No acute fracture. Soft tissues: Mild calcification of the carotid bifurcation bilaterally. DISCS/SPINAL CANAL/NEURAL FORAMINA: C2-C3: Degenerative fusion of C2-3. No stenosis. C3-C4: Unremarkable. No significant disc disease. No stenosis. C4-C5: Degenerative fusion. Spinal stenosis measuring 8 mm. C5-C6: Degenerative fusion. Spinal stenosis measuring 9 mm. C6-C7: Degenerative fusion. No stenosis. C7-T1: Moderate degenerative disc disease. No stenosis. IMPRESSION: 1. Previous instrumentation and fusion of the C1-2 level. 2. [id number] multilevel degenerative disc disease and facet arthrosis. There is straightening of the normal cervical curvature suggesting spasm. No acute fracture or subluxation is seen. Electronically signed by: Levon Rosas MD 02/18/25 21:29 PM Chest X-Ray 02/18/25 19:41 Exam(s): XR CXR 1 VIEW EXAM: XR Chest, 1 View CLINICAL HISTORY: Reason for exam: fall. TECHNIQUE: Frontal view of the chest. COMPARISON: 01/15/2025 FINDINGS: Lungs: Low lung volumes with bronchovascular crowding and mild bibasilar atelectasis versus edema or infiltrates, increased since previous. Pleural space: Unremarkable. No pneumothorax. Heart: The cardiac silhouette is mildly enlarged but partially obscured. Previous left atrial appendage plugging. Mediastinum: Unremarkable. Normal mediastinal contour. Bones/joints: Mild osteophytosis in the thoracic spine. No acute fracture. Vasculature: The aortic arch is mildly calcified. Upper abdomen: Unremarkable as visualized. No pneumoperitoneum under the diaphragm. IMPRESSION: Low lung volumes with bronchovascular crowding and mild bibasilar atelectasis versus edema or infiltrates, increased since previous. Electronically signed by: Levon Rosas MD 02/18/25 20:[address] 02/18/25 19:41 Exam(s): CT HEAD Without Contrast EXAM: CT Head Without Intravenous Contrast CLINICAL HISTORY: Reason for exam: fall from standing. TECHNIQUE: Axial computed tomography images of the head/brain without intravenous contrast. CTDI is 37 mGy and DLP is 1597 mGy-cm. Automated exposure control was utilized for the study. A dose lowering technique was utilized adhering to the principles of ALARA. COMPARISON: 09/20/2023 FINDINGS: Brain: Mild cerebral atrophy and periventricular white matter low density consistent with chronic small vessel disease and/or senescent changes. No acute large vessel infarct or intracranial hemorrhage is seen. Ventricles: Unremarkable. No ventriculomegaly. Bones/joints: Unremarkable. No acute fracture. Soft tissues: Unremarkable. Sinuses: Unremarkable as visualized. No acute sinusitis. Mastoid air cells: Unremarkable as visualized. No mastoid effusion. IMPRESSION: Mild cerebral atrophy and periventricular white matter low density consistent with chronic small vessel disease and/or senescent changes. No acute large vessel infarct or intracranial hemorrhage is seen. Electronically signed by: Levon Rosas MD 02/18/25 21:[address] 02/18/25 19:41 Exam(s): CT L SPINE With Contrast IV Amt: 93ml opti 320 EXAM: CT Lumbar Spine With Intravenous Contrast CLINICAL HISTORY: Reason for exam: fall from standing. TECHNIQUE: Axial computed tomography images of the lumbar spine with intravenous contrast. CTDI is 37 mGy and DLP is 1597 mGy-cm. Automated exposure control was utilized for the study. A dose lowering technique was utilized adhering to the principles of ALARA. CONTRAST: Patient received 93ml Optiray 320 of IV contrast COMPARISON: Plain films from 09/20/2023 FINDINGS: Vertebrae: There is a new compression fracture at L4 status post kyphoplasty. There is also a 15% superior endplate compression fracture of L3, likely chronic but new since 2023. Soft tissues: Unremarkable. DISCS/SPINAL CANAL/NEURAL FORAMINA: L1-L2: Moderate degenerative disc disease. No stenosis. L2-L3: Mild degenerative disc disease. No stenosis. L3-L4: Mild degenerative disc disease. No stenosis. L4-L5: Mild degenerative disc disease. No stenosis. L5-S1: Moderate degenerative disc disease. No stenosis. IMPRESSION: 1. There is a new compression fracture at L4 status post kyphoplasty. There is also a 15% superior endplate compression fracture of L3, likely chronic but new since 2023. If there is clinical concern for acute compression fracture, consider MRI or bone scan for further characterization. 2. Poit-cy-iorfcbgh multilevel degenerative disc disease throughout the lumbar spine, similar to previous. Electronically signed by: Levon Rosas MD 02/18/25 21:35 PM Pelvis X-Ray 02/18/25 19:41 Exam(s): XR PELVIS, 1-2 views EXAM: XR Pelvis, 1 or 2 Views CLINICAL HISTORY: Reason for exam: sacral pain s/p fall. TECHNIQUE: Frontal view of the pelvis. COMPARISON: 09/20/2023 FINDINGS: Bones/joints: Slight osteophytosis involving both hip joints. The proximal femurs are intact. No hip fracture or dislocation is seen. The sacral arcuate lines are smooth and intact. No sacral fracture is identified. The pelvis appears to be intact. Soft tissues: Unremarkable. IMPRESSION: Mild osteoarthritic changes in the hips. No fracture or dislocation is seen. Electronically signed by: Levon Rosas MD 02/18/25 20:35 PM Pending Results Patient Have Any Pending Studies at Discharge: No Discharge Instructions Given to Patient (Per Discharging Provider) Tra, You were admitted to the hospital after a fall resulted in an L4 vertebral compression fracture. Luckily, your other imaging was negative including head CT, chest x-ray, cervical spine CT, CT abdomen and pelvis, pelvis x-ray. You are being discharged to [facility] for rehab. Upon discharge from the hospital: * Take Tylenol 1000 mg 3 times daily as your first-line pain medication. * Take oxycodone 5-10 mg every 6 hours as needed for severe pain. Do not drive or operate heavy machinery while taking oxycodone as it is a narcotic pain medication. * Use calcitonin nasal spray daily for 1 month 1 spray daily, alternating nostrils. This helps with compression fracture related pain. * Apply lidocaine patch to your lumbar spine, wear for 12 hours, remove for 12 hours, repeat. * Follow-up with your PCP in 1-2 weeks. * Continue your other home medications as prescribed. There were no changes made to your usual home medicines. Please return to the hospital if you experience any of the following: Uncontrolled pain, repeated falls, chest pain, difficulty breathing, passing out, confusion, or any other symptoms concerning for you. It was a pleasure taking care of you while you were in the hospital! Supervising Physician Co-Signing Physician Notes PA Supervision Note: I did not personally see or examine the patient today, but I verified all baltazar points of ЕКАТЕРИНА Hanna's assessment and plan with the following exceptions/additions: None Total Time Total Time Spent Total Time Spent (In Minutes): Greater than 30 minutes spent completing this discharge process including direct patient care, medication reconciliation, documentation, review of labs and images, and coordination of care. Coding Level of Care Code 04257 INP/OBS DISCH >30 MIN Diagnoses Closed compression fracture of L4 vertebra S32.040A Fall W19.XXXA Ambulatory dysfunction R26.2
[2025-02-20 15:30] VITALS: BP 137/84; PULSE 99; RESP 18; TEMP 97.9
[2025-02-20 15:39] VITALS: O2SAT 93
== END 2025-02-20 17:00 | DRG 543 ==
LOC: ED 19:20 → EDINP 23:53 → SUATTDRO 23:53 → 3N 02-19 01:09